=== PATIENT | male | born 1950 | race Caucasian/White ===

== ENCOUNTER 2017-01-03 13:30 | Inpatient (IN) | payer MEDICARE ==
[2017-01-03] MEDS ORDERED: IPRATROPIUM-ALBUTEROL 3 ML NEB INHALATION STA (14:18)
[2017-01-03] MEDS ORDERED: methylPREDNISolone SOD SUCCI 125 MG/2 ML VIAL IV STA (14:18)
[2017-01-03] MEDS ORDERED: NITROGLYCERIN OINT 1 INCH/GM PACKET TOPICAL STA (14:18)
[2017-01-03] MEDS ORDERED: FUROSEMIDE 10 MG/ML 4 ML VIAL IV STA (14:18)
[2017-01-03] MEDS ORDERED: ASPIRIN 81 MG CHEW PO STA (14:21)
--- NOTE | 2017-01-03 14:24 | ED ---
SOB HPI - General Chief Complaint: Shortness of Breath Stated Complaint: JONO Time Seen by Provider: 01/03/17 14:07 Source: patient Mode of arrival: wheelchair Limitations: no limitations - History of Present Illness Initial Comments: This 66-year-old white male presents with a complaint of some shortness of breath. He states that it is essentially been present over the last 2 days. It is fairly severe. He has significant exertional dyspnea. He states that he is having a hard time doing any type of activity whatsoever. He does have a history of 4 L oxygen dependent COPD. He also has a history of congestive heart failure. He denies any history of DVT or PE. He currently is on Coumadin for atrial fibrillation. He has had occasional left sided chest pain/ pressure. He denies any leg pain or swelling. He has had a cough with minimal brownish production but denies any fevers. 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 No other complaints or modifying factors. - Related Data Home Medications Medication Instructions Recorded Confirmed Aspirin EC [Ecotrin] 325 mg PO DAILY 01/03/17 01/03/17 Carvedilol [Coreg] 3.125 mg PO BID 01/03/17 01/03/17 Celecoxib [CeleBREX] 200 mg PO DAILY 01/03/17 01/03/17 Ferrous Gluconate 27mg 27 mg PO DAILY 01/03/17 01/03/17 Fluticasone/Salmeterol [Advair 1 puff INHALATION RT-BID 01/03/17 01/03/17 250-50 Diskus] Furosemide [Lasix] 40 mg PO BID 01/03/17 01/03/17 Ipratropium-Albuterol Nebulize 3 ml INHALATION RT-Q4H 01/03/17 01/03/17 [Duoneb 0.5 mg-3 mg/3 ml Soln] Rosuvastatin [Crestor] 10 mg PO HS 01/03/17 01/03/17 Tamsulosin HCl [Flomax] 0.4 mg PO DAILY 01/03/17 01/03/17 Tiotropium 18 Mcg/Puff [Spiriva] 1 cap INHALATION RT-DAILY 01/03/17 01/03/17 Warfarin Sodium [Coumadin] 4 mg PO HS 01/03/17 01/03/17 metFORMIN HCL [Metformin HCl] 1,000 mg PO BID 01/03/17 01/03/17 Allergies Allergy/AdvReac Type Severity Reaction Status Date / Time No Known Allergies Allergy Verified 01/03/17 13:53 Review of Systems ROS Statement: Those systems with pertinent positive or pertinent negative responses have been documented in the HPI. ROS Other: All systems not noted in ROS Statement are negative. Past Medical History Past Medical History: Heart Failure, COPD, Diabetes Mellitus, Hyperlipidemia, Hypertension History of Any Multi-Drug Resistant Organisms: None Reported Past Surgical History: Orthopedic Surgery Additional Past Surgical History / Comment(s): knee Past Psychological History: No Psychological Hx Reported Smoking Status: Current every day smoker Past Alcohol Use History: Rare Past Drug Use History: None Reported General Exam - General Exam Comments Initial Comments: GENERAL: The patient is well nourished and well hydrated. VITAL SIGNS: Heart rate, blood pressure, respiratory rate reviewed as recorded in nurse's notes. EYES: Pupils are round and reactive. Extraocular movements are intact. No conjunctival / lid redness or swelling. ENT: No external evidence of injury, swelling, or ecchymosis. Airway is patent. Throat is clear. NECK: Nontender. No swelling or evidence of injury. No subcutaneous emphysema. Trachea is midline. No thyroid mass. HEART: Regular rate and rhythm. Good peripheral pulses. LUNGS/CHEST: Decreased breath sounds noted bilaterally. No ecchymosis, subcutaneous emphysema, or tenderness. ABDOMEN: Abdomen soft without tenderness. No palpable masses or organomegaly. No peritoneal signs. No abdominal wall swelling or ecchymosis. EXTREMITIES: No extremity tenderness. Normal muscle tone and function. No thoracolumbar tenderness. No extremity edema noted. NEUROLOGIC: Sensation is grossly intact. Cranial nerve exam reveals face is symmetrical, tongue is midline, speech is clear. SKIN: No abrasions or ecchymosis is noted. No induration or masses noted. PSYCHIATRIC: Alert and oriented. Appropriate behavior and judgment. Limitations: no limitations Course Vital Signs 01/03/17 01/03/17 01/03/17 13:37 14:06 14:28 Temperature 97.4 F L Pulse Rate 83 91 Respiratory 18 22 Rate Blood Pressure 117/63 O2 Sat by Pulse 88 L Oximetry 01/03/17 01/03/17 01/03/17 14:31 14:38 14:41 Temperature Pulse Rate 96 80 Respiratory 18 Rate Blood Pressure 111/74 123/79 O2 Sat by Pulse 97 Oximetry 01/03/17 01/03/17 15:21 16:24 Temperature 97.4 F L Pulse Rate 79 94 Respiratory 18 18 Rate Blood Pressure 117/74 160/83 O2 Sat by Pulse 96 94 L Oximetry Medical Decision Making - Medical Decision Making The patient was seen and examined. All diagnostics were reviewed. The breathing treatment is ordered as well as some Solu-Medrol intravenously, aspirin, Nitropaste, and Lasix. The EKG was completed and does show atrial fibrillation at a rate of 98. An occasional PVC is noted. There is some nonspecific ST-T wave changes noted mostly in the lateral leads. The patient's QRS duration is 1:30 minus QTC intervals 474. He does have a history of atrial fibrillation as well. The chest x-ray shows signs of congestive heart failure. His troponin and BNP are both elevated. The patient has some mild anemia, hypochloremia, hyperglycemia, and renal insufficiency. He has severe exertional dyspnea. It is felt as though his symptoms complex is consistent with congestive heart failure and that he would benefit from admission to the hospital. It is felt as though his congestive heart failure is fairly advanced. Case is discussed with Dr. Clarke and he is agreeable with admission with cardiology to consult. - Lab Data Result diagrams: 01/03/17 14:00 01/03/17 14:00 Lab Results 01/03/17 01/03/17 01/03/17 Range/Units 14:00 14:00 14:00 WBC 5.4 (3.8-10.6) k/uL RBC 3.29 L (4.30-5.90) m/uL Hgb 10.8 L (13.0-17.5) gm/dL Hct 32.1 L (39.0-53.0) % MCV 97.4 (80.0-100.0) fL MCH 32.8 (25.0-35.0) pg MCHC 33.7 (31.0-37.0) g/dL RDW 15.0 (11.5-15.5) % Plt Count 165 (150-450) k/uL Neutrophils % 79 % Lymphocytes % 10 % Monocytes % 7 % Eosinophils % 1 % Basophils % 0 % Neutrophils # 4.2 (1.3-7.7) k/uL Lymphocytes # 0.5 L (1.0-4.8) k/uL Monocytes # 0.4 (0-1.0) k/uL Eosinophils # 0.1 (0-0.7) k/uL Basophils # 0.0 (0-0.2) k/uL PT (9.0-12.0) sec INR (<1.1) APTT (22.0-30.0) sec Sodium 140 (137-145) mmol/L Potassium 4.2 (3.5-5.1) mmol/L Chloride 92 L (98-107) mmol/L Carbon Dioxide 34 H (22-30) mmol/L Anion Gap 14 mmol/L BUN 54 H (9-20) mg/dL Creatinine 1.60 H (0.66-1.25) mg/dL Est GFR (MDRD) Af Amer 53 (>60 ml/min/1.73 sqM) Est GFR (MDRD) Non-Af 44 (>60 ml/min/1.73 sqM) Glucose 148 H (74-99) mg/dL Calcium 9.5 (8.4-10.2) mg/dL Magnesium 1.9 (1.6-2.3) mg/dL Total Bilirubin 1.2 (0.2-1.3) mg/dL AST 27 (17-59) U/L ALT 30 (21-72) U/L Alkaline Phosphatase 59 (38-126) U/L Total Creatine Kinase 72 (55-170) U/L CK-MB (CK-2) 3.1 H* (0.0-2.4) ng/mL CK-MB (CK-2) Rel Index 4.3 Troponin I 0.103 H* (0.000-0.034) ng/mL NT-Pro-B Natriuret Pep pg/mL Total Protein 6.9 (6.3-8.2) g/dL Albumin 4.4 (3.5-5.0) g/dL 01/03/17 01/03/17 Range/Units 14:00 14:00 WBC (3.8-10.6) k/uL RBC (4.30-5.90) m/uL Hgb (13.0-17.5) gm/dL Hct (39.0-53.0) % MCV (80.0-100.0) fL MCH (25.0-35.0) pg MCHC (31.0-37.0) g/dL RDW (11.5-15.5) % Plt Count (150-450) k/uL Neutrophils % % Lymphocytes % % Monocytes % % Eosinophils % % Basophils % % Neutrophils # (1.3-7.7) k/uL Lymphocytes # (1.0-4.8) k/uL Monocytes # (0-1.0) k/uL Eosinophils # (0-0.7) k/uL Basophils # (0-0.2) k/uL PT 22.0 H (9.0-12.0) sec INR 2.3 (<1.1) APTT 29.6 (22.0-30.0) sec Sodium (137-145) mmol/L Potassium (3.5-5.1) mmol/L Chloride (98-107) mmol/L Carbon Dioxide (22-30) mmol/L Anion Gap mmol/L BUN (9-20) mg/dL Creatinine (0.66-1.25) mg/dL Est GFR (MDRD) Af Amer (>60 ml/min/1.73 sqM) Est GFR (MDRD) Non-Af (>60 ml/min/1.73 sqM) Glucose (74-99) mg/dL Calcium (8.4-10.2) mg/dL Magnesium (1.6-2.3) mg/dL Total Bilirubin (0.2-1.3) mg/dL AST (17-59) U/L ALT (21-72) U/L Alkaline Phosphatase (38-126) U/L Total Creatine Kinase (55-170) U/L CK-MB (CK-2) (0.0-2.4) ng/mL CK-MB (CK-2) Rel Index Troponin I (0.000-0.034) ng/mL NT-Pro-B Natriuret Pep 8330 pg/mL Total Protein (6.3-8.2) g/dL Albumin (3.5-5.0) g/dL Disposition Clinical Impression: Congestive heart failure, COPD (chronic obstructive pulmonary disease), Hypoxia , Elevated troponin, Hypertension, Anemia, Renal insufficiency, Hypochloremia, Hyperglycemia Disposition: ADMITTED IP TO THIS [facility] Condition: Fair Referrals: Nonstaff,Physician [REFERRING] - 1-2 days Time of Disposition: 17:09 Decision Date: 01/03/17 Decision Time: 17:10
[2017-01-03 14:32] LABS: Basophils % (A) 0 %; CH 31.6; CHCM 32.7; Eosinophils # (A) 0.1 k/uL (0-0.7); Eosinophils % (A) 1 %; HCT 32.1 % (39.0-53.0); HDW 2.73; HGB 10.8 gm/dL (13.0-17.5); Luc # (Auto) 0.13; Luc % (Auto) 3; Lymphocytes # (A) 0.5 k/uL (1.0-4.8); Lymphocytes % (A) 10 %; MCH 32.8 pg (25.0-35.0); MCHC 33.7 g/dL (31.0-37.0); MCV 97.4 fL (80.0-100.0); Mean Platelet Volume 7.2; Monocytes # (A) 0.4 k/uL (0-1.0); Monocytes % (A) 7 %; Neutrophils # (A) 4.2 k/uL (1.3-7.7); Neutrophils % (A) 79 %; RBC 3.29 m/uL (4.30-5.90); WBC 5.4 k/uL (3.8-10.6); WBC (Perox) 5.73
[2017-01-03 14:44] LABS: Calcium 9.5 mg/dL (8.4-10.2); Magnesium 1.9 mg/dL (1.6-2.3); Potassium 4.2 mmol/L (3.5-5.1); Total Bilirubin 1.2 mg/dL (0.2-1.3); Total Protein 6.9 g/dL (6.3-8.2)
[2017-01-03 14:49] LABS: INR 2.3 (<1.1); Partial Thromboplastin Time 29.6 sec (22.0-30.0)
--- NOTE | 2017-01-03 15:05 | XR ---
EXAMINATION TYPE: XR chest 2V DATE OF EXAM: 01/03/2017 COMPARISON: NONE HISTORY: Shortness of breath and difficulty in breathing. TECHNIQUE: Frontal and lateral views of the chest are obtained. FINDINGS: There is no focal air space opacity, pleural effusion, or pneumothorax seen. The cardiac silhouette size is mildly enlarged with mild central vascular congestion and atherosclerotic thoracic aorta. The osseous structures are intact. There is possible calcific foci left axillary region par tially imaged. IMPRESSION: Correlate for CHF exacerbation as there is cardiomegaly with suggestion of mild central vascular congestion.
[2017-01-03 15:09] LABS: Creatine Kinase MB 3.1 ng/mL (0.0-2.4); Troponin I 0.103 ng/mL (0.000-0.034)
[2017-01-03] MEDS: CARVEDILOL 3.125 MG TAB PO SCH (18:52)
[2017-01-03] MEDS ORDERED: IPRATROPIUM-ALBUTEROL 3 ML NEB INHALATION SCH (20:00)
[2017-01-03] MEDS: SYMBICORT 80-4.5 MCG INHALER INHALATION SCH (20:26)
[2017-01-03] MEDS: IPRATROPIUM-ALBUTEROL 3 ML NEB INHALATION SCH (20:40)
[2017-01-03 20:58] LABS: Glucose,Whole Blood 221 mg/dL (75-99)
[2017-01-03] MEDS ORDERED: ATORVASTATIN 20 MG TAB PO SCH (21:00)
[2017-01-03] MEDS: metFORMIN 500 MG TAB PO SCH (21:29)
[2017-01-03] MEDS: WARFARIN 2 MG TAB PO SCH (21:30)
[2017-01-03] MEDS: NITROGLYCERIN OINT 1 INCH/GM PACKET TOPICAL SCH (22:44)
[2017-01-03 23:13] LABS: Creatine Kinase MB 2.7 ng/mL (0.0-2.4); Troponin I 0.101 ng/mL (0.000-0.034)
[2017-01-03] MEDS: FUROSEMIDE 10 MG/ML 4 ML VIAL IV SCH (23:58)
[2017-01-03] MEDS: IPRATROPIUM-ALBUTEROL 3 ML NEB INHALATION PRN (23:58)
[2017-01-04 03:28] LABS: Basophils % (A) 0 %; CH 31.9; CHCM 31.6; Eosinophils % (A) 0 %; HDW 2.54; HGB 9.9 gm/dL (13.0-17.5); Hypochromasia Slight; Luc # (Auto) 0.02; Luc % (Auto) 1; Lymphocytes # (A) 0.2 k/uL (1.0-4.8); Lymphocytes % (A) 6 %; MCH 31.4 pg (25.0-35.0); MCV 101.6 fL (80.0-100.0); Macrocytosis Slight; Mean Platelet Volume 8.7; Monocytes # (A) 0.1 k/uL (0-1.0); Monocytes % (A) 2 %; Neutrophils # (A) 2.8 k/uL (1.3-7.7); Neutrophils % (A) 91 %; RBC 3.15 m/uL (4.30-5.90); RDW 15.2 % (11.5-15.5); WBC 3.1 k/uL (3.8-10.6); WBC (Perox) 3.52
[2017-01-04 04:04] LABS: Calcium 9.1 mg/dL (8.4-10.2); Potassium 4.4 mmol/L (3.5-5.1); Total Bilirubin 0.9 mg/dL (0.2-1.3); Total Protein 6.6 g/dL (6.3-8.2)
[2017-01-04 04:13] LABS: Creatine Kinase MB 2.9 ng/mL (0.0-2.4); Troponin I 0.094 ng/mL (0.000-0.034)
[2017-01-04 05:49] LABS: Glucose,Whole Blood 171 mg/dL (75-99)
--- NOTE | 2017-01-04 06:44 | HP ---
DATE OF ADMISSION: CHIEF COMPLAINT: A 66-year-old white male with some shortness of breath worsening over the last 2 days, severe exertional dyspnea doing any kind of activity, has a history of 4-L O2 dependent COPD. Chest x-ray in the ER was recommended and read as congestive heart failure. He was started on IV Lasix. He normally takes Lasix 40 mg b.i.d. at home. Denies any history of DVT or PE. Coumadin for atrial fibrillation. Had chest pain, pressure. Denies pain or swelling. Has a cough with minimal brown sputum. 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 No other modifying factors. MEDICATIONS: 1. Lasix 40 mg b.i.d. 2. Coreg 3.125 b.i.d. 3. Ecotrin 325 mg daily. 4. Celebrex 200 daily. 5. Ferrous sulfate 325 mg daily. 6. Crestor 10 mg daily. 7. Flomax 0.4 mg daily. 8. Spiriva 1 puff daily. 9. Coumadin 4 mg daily. 10. Metformin 1000 b.i.d. 11. DuoNeb updrafts q.4 hours p.r.n. ALLERGIES: No known drug allergies. REVIEW OF SYSTEMS: Fourteen-point review of systems negative except for as mentioned in HPI. PAST MEDICAL HISTORY: Congestive heart failure, COPD, diabetes mellitus, hypertension, dyslipidemia, orthopedic surgery, current every day smoker. No alcohol. No illicit drugs PHYSICAL EXAM: VITAL SIGNS: Stable, afebrile. CARDIOVASCULAR: S1, S2. LUNGS: Show rales at the bases, scattered wheeze. HEMATOLOGIC: Negative Homans. PSYCHIATRIC: Fair mood and affect. NEUROLOGIC: Alert and oriented x3. OPHTHALMOLOGIC: Pupils equal, round and reactive to light and accommodation. PSYCH: Fair mood and affect. SKIN: No rash, excoriation, bruising. Temperature 97.4, pulse 83 to 91, respiratory rate 18 to 22, blood pressure 117/63, O2 88% on room air. Hemoglobin is 10.8. Some ST-T changes on EKG with positive troponins. Cardiology was consulted. ASSESSMENT: 1. Acute congestive heart failure. 2. Atrial fibrillation. 3. Positive troponin. 4. Non-ST elevation myocardial infarction. 5. Chronic renal insufficiency. 6. Chronic obstructive pulmonary disease exacerbation. 7. Acute on chronic anemia. 8. Diabetes mellitus. 9. Hypochloremia. 10. Hyperglycemia. PLAN: Admit the patient to inpatient, IV Lasix 40 q.8, updraft treatments, IV Solu-Medrol, Accu-Chek protocol, hemoglobin A1c, thyroid will be done. Home medicines will be done. Please see further orders.
[2017-01-04] MEDS: CARVEDILOL 3.125 MG TAB PO SCH ×2 (06:51→17:04)
[2017-01-04] MEDS: IPRATROPIUM-ALBUTEROL 3 ML NEB INHALATION SCH ×4 (08:18→19:47)
[2017-01-04] MEDS: SYMBICORT 80-4.5 MCG INHALER INHALATION SCH ×2 (08:18→19:47)
[2017-01-04] MEDS ORDERED: ASPIRIN 325 MG TAB PO SCH (09:00)
[2017-01-04] MEDS: FUROSEMIDE 10 MG/ML 4 ML VIAL IV SCH ×3 (09:22→22:30)
[2017-01-04] MEDS: TAMSULOSIN 0.4 MG CAP.ER.24H PO SCH (09:23)
[2017-01-04] MEDS: MELOXICAM 7.5 MG TAB PO SCH (09:23)
[2017-01-04] MEDS: metFORMIN 500 MG TAB PO SCH ×2 (09:23→22:25)
[2017-01-04] MEDS: FERROUS SULFATE 325 MG TAB PO SCH (09:23)
[2017-01-04] MEDS: NITROGLYCERIN OINT 1 INCH/GM PACKET TOPICAL SCH ×4 (10:10→22:30)
[2017-01-04 11:50] LABS: % Iron Saturation 9.1 % (20-50)
[2017-01-04] MEDS: TIOTROPIUM 18 MCG/PUFF INHALER INHALATION SCH (11:52)
[2017-01-04 11:56] LABS: Glucose,Whole Blood 171 mg/dL (75-99)
--- NOTE | 2017-01-04 13:00 | CONS ---
DATE OF CONSULTATION: Mr. Mcknight is a 66-year-old gentleman who is seen for cardiac evaluation. The patient's emergency records reviewed. Patient came to the emergency room because he has been having progressively increasing shortness of breath over last 4 to 5 days with a history suggestive of orthopnea as well as PND. Patient denies any significant cough with expectoration. 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 Patient has a history of hypertension, diabetes, congestive heart failure, COPD, and has been using oxygen. However, he has been otherwise functionally active and he used to play golf. Patient also has a history of atrial fibrillation and has been on Coumadin. Patient denies any definite prior history of myocardial infarction. He denies any history suggestive of angina. Patient has been evaluated with echocardiogram and a stress test in the past, but according to him, he never had a cardiac catheterization done in the past. Home medications included aspirin 325 mg daily, Coreg, Celebrex 200 mg daily, ferrous gluconate once a day, Lasix 40 mg b.i.d., Crestor once a day, Coumadin and metformin. Past medical history includes history of hypertension, diabetes, hyperlipidemia, heart failure, COPD, history of orthopedic surgery. SMOKING HISTORY: Patient is currently every day smoker. He smokes about 5 to 6 cigarettes per day. Physical examination at present reveals a 66-year-old gentleman who at present is not in any acute respiratory distress. Patient's blood pressure is 115/65 mmHg, oxygen saturation is 99%. Head/ENT examination is negative. Neck is supple. Jugular venous pressure is elevated. Both the carotid pulses are felt. There is no bruit. Chest is symmetrical. HEART: The PMI is not felt. There is evidence of cardiomegaly. Mild left parasternal hue noted. First and second heart sounds are normal. No significant murmurs are noted. Lungs reveal bilateral basal rales in the lower one third of the lung taveras. Abdomen is soft. Liver is palpable about 2 fingerbreadths below the right costal margin. EXTREMITIES: There is 1 to 2+ pedal edema. Peripheral pulses are not felt. EKG shows evidence of atrial fibrillation with a controlled rate. Chest x-ray shows congestive cardiac failure. Patient's initial proBNP level was 8300, repeat proBNP level is 15,000. Patient has minimal elevation in the troponin. Patient's creatinine is 1.6. FINAL IMPRESSION: 1. This patient has presented with acute decompensated heart failure on the background of chronic systolic heart failure. Patient has a history of hypertension and diabetes. 2. Chronic atrial fibrillation with a controlled rate. RECOMMENDATIONS: At present, I would recommend to continue the patient on IV Lasix. We will discontinue aspirin as the patient is getting Coumadin. We will start the patient on Entresto 24/26 mg twice a day as well as Aldactone 25 mg daily. We will follow the patient's BUN and creatinine. Patient's echocardiogram shows severely impaired left ventricular systolic function with ejection fraction of 20% and pulmonary hypertension. After the patient's condition improves, patient will need further work-up.
--- NOTE | 2017-01-04 13:08 | ECHOF ---
Referral Reason:Heart Failure MEASUREMENTS -------- HEIGHT: 175.3 cm WEIGHT: 97.1 kg BP: 130/60 IVSd: 1.2 cm (0.6 - 1.1) LVIDd: 5.6 cm (3.9 - 5.3) LVPWd: 0.8 cm (0.6 - 1.1) LVIDs: 5.1 cm RVIDd: 4.7 cm (< 3.3) LAESV Index (A-L): 34.40 ml/m Ao Diam: 3.3 cm (2.0 - 3.7) LA Diam: 4.3 cm (2.7 - 3.8) AV Cusp: 1.6 cm (1.5 - 2.6) EPSS: 0.7 cm MV E Charles: 1.30 m/s MV DecT: 142 ms MV A Charles: 0.20 m/s MV E/A Ratio: 6.39 RAP: 15.00 mmHg RVSP: 73.21 mmHg MV EF SLOPE: 64.08 mm/s (70 - 150) MV EXCURSION: 19.13 mm (> 18.000) FINDINGS -------- Sinus rhythm. This was a technically adequate study. Left ventricular wall thickness is normal. There is severe global hypokinesis of LV . Overall left ventricular systolic function is severely impaired with, an EF < 20%. The right ventricle is normal in size. LA is midly dilated 29-33ml/m2. There is mild aortic valve sclerosis. There is no evidence of aortic regurgitation. Mild mitral annular calcification present. Moderate mitral regurgitation is present. [id number] tricuspid regurgitation present. There is moderate to severe pulmonary hypertension. The right ventricular systolic pressure, as measured by Doppler, is 73.21mmHg. There is no pulmonic regurgitation present. The aortic root size is normal. There is no pericardial effusion. CONCLUSIONS -------- 1. Left ventricular wall thickness is normal. 2. The right ventricular systolic pressure, as measured by Doppler, is 73.21mmHg. 3. There is no pulmonic regurgitation present. 4. The aortic root size is normal. 5. There is no pericardial effusion. 6. There is severe global hypokinesis of LV . 7. Overall left ventricular systolic function is severely impaired with, an EF < 20%. 8. LA is midly dilated 29-33ml/m2. 9. There is mild aortic valve sclerosis. 10. Mild mitral annular calcification present. 11. Moderate mitral regurgitation is present. 12. [id number] tricuspid regurgitation present. 13. There is moderate to severe pulmonary hypertension. RADIOLOGY SPECIAL PROCEDURE TECH: Lorie Johns RDCS
[2017-01-04 13:58] LABS: Hemoglobin A1C 5.5 % (4.2-6.1)
[2017-01-04] MEDS: SPIRONOLACTONE 25 MG TAB PO SCH (14:01)
[2017-01-04] MEDS: SACUBITRIL/VALSARTAN 24 MG-26 MG TABLET PO SCH ×2 (14:01→22:25)
[2017-01-04 14:22] LABS: INR 2.2 (<1.1); Prothrombin Time 21.5 sec (9.0-12.0)
[2017-01-04 17:23] LABS: Glucose,Whole Blood 114 mg/dL (75-99)
[2017-01-04 20:48] LABS: Glucose,Whole Blood 130 mg/dL (75-99)
[2017-01-04] MEDS: WARFARIN 2 MG TAB PO SCH (22:25)
[2017-01-04] MEDS: ATORVASTATIN 40 MG TAB PO SCH (22:25)
[2017-01-04] MEDS: IPRATROPIUM-ALBUTEROL 3 ML NEB INHALATION PRN (23:32)
[2017-01-05 05:47] LABS: Glucose,Whole Blood 115 mg/dL (75-99)
[2017-01-05 06:20] LABS: CH 31.8; HCT 31.7 % (39.0-53.0); HGB 9.8 gm/dL (13.0-17.5); Hypochromasia Slight; MCV 103.1 fL (80.0-100.0); Macrocytosis Moderate; Mean Platelet Volume 7.7; RBC 3.07 m/uL (4.30-5.90); RDW 15.3 % (11.5-15.5)
[2017-01-05 06:21] LABS: Prothrombin Time 19.4 sec (9.0-12.0)
[2017-01-05 06:51] LABS: Calcium 8.9 mg/dL (8.4-10.2); Potassium 4.5 mmol/L (3.5-5.1); Total Bilirubin 0.7 mg/dL (0.2-1.3); Total Protein 6.1 g/dL (6.3-8.2)
[2017-01-05] MEDS ORDERED: CARVEDILOL 3.125 MG TAB ONE (07:30)
[2017-01-05] MEDS: IPRATROPIUM-ALBUTEROL 3 ML NEB INHALATION SCH ×4 (08:00→19:47)
[2017-01-05] MEDS: SYMBICORT 80-4.5 MCG INHALER INHALATION SCH ×2 (08:00→19:47)
[2017-01-05] MEDS: TIOTROPIUM 18 MCG/PUFF INHALER INHALATION SCH (08:00)
[2017-01-05] MEDS: CARVEDILOL 3.125 MG TAB PO SCH ×2 (09:09→17:29)
[2017-01-05] MEDS: FUROSEMIDE 10 MG/ML 4 ML VIAL IV SCH (09:11)
[2017-01-05] MEDS: FERROUS SULFATE 325 MG TAB PO SCH (09:12)
[2017-01-05] MEDS: MELOXICAM 7.5 MG TAB PO SCH ×2 (09:12→14:38)
[2017-01-05] MEDS: metFORMIN 500 MG TAB PO SCH (09:13)
[2017-01-05] MEDS: SACUBITRIL/VALSARTAN 24 MG-26 MG TABLET PO SCH ×2 (09:13→20:57)
[2017-01-05] MEDS: SPIRONOLACTONE 25 MG TAB PO SCH (09:13)
--- NOTE | 2017-01-05 10:13 | PN ---
SUBJECTIVE: A 66-year-old white male admitted with progressive shortness of breath for the past 4 to 5 days with orthopnea, PND, cough, expectoration, hypertension, diabetes, congestive heart failure, COPD found to have ejection fraction around 20%, atrial fibrillation. He is breathing better with IV Lasix 40 q.8 and Entresto has been started by Cardiology today. His acute on chronic decompensated systolic heart failure and possible diastolic heart failure, hypertension, diabetes mellitus, chronic atrial fibrillation. Continue with Coumadin and Entresto 24/26 mg b.i.d., Aldactone 25 mg daily. Continue with PT, OT. Possible discharge home in next 48 hours.
[2017-01-05 13:40] LABS: Glucose,Whole Blood 152 mg/dL (75-99)
[2017-01-05] MEDS: NITROGLYCERIN OINT 1 INCH/GM PACKET TOPICAL SCH ×4 (13:50→21:02)
--- NOTE | 2017-01-05 14:15 | PN ---
This patient is admitted with congestive cardiac failure. His condition is about the same. There is no significant improvement in the patient's shortness of breath. Patient's weight is actually gone up by one pound. Urine output is borderline. First and second heart sounds are normal. Lung examination reveals bilateral basal rales. Patient's creatinine is 2.0, BUN is 72. FINAL IMPRESSION: Acute on chronic systolic heart failure. Patient has cardiorenal syndrome, with progressively increased creatinine. We will start the patient on dobutamine drip as well as IV Lasix drip. D/C the IV Lasix.
[2017-01-05] MEDS: DOBUTamine DRIP 500 MG in DEXTROSE/WATER 1 250ML.BAG IV SCH (14:16)
[2017-01-05] MEDS: FUROSEMIDE 250 MG in SODIUM CHLORIDE 0.9% 225 ML IVP SCH (14:16)
[2017-01-05] MEDS: TAMSULOSIN 0.4 MG CAP.ER.24H PO SCH (14:38)
[2017-01-05 17:07] LABS: Glucose,Whole Blood 87 mg/dL (75-99)
[2017-01-05 20:53] LABS: Glucose,Whole Blood 154 mg/dL (75-99)
[2017-01-05] MEDS: WARFARIN 2 MG TAB PO SCH (20:57)
[2017-01-05] MEDS: ATORVASTATIN 40 MG TAB PO SCH (20:57)
[2017-01-05] MEDS: IPRATROPIUM-ALBUTEROL 3 ML NEB INHALATION PRN (23:49)
[2017-01-06 06:06] LABS: Calcium 8.3 mg/dL (8.4-10.2); Potassium 4.3 mmol/L (3.5-5.1)
[2017-01-06 06:25] LABS: INR 1.9 (<1.1); Prothrombin Time 17.9 sec (9.0-12.0)
[2017-01-06 06:38] LABS: Glucose,Whole Blood 126 mg/dL (75-99)
[2017-01-06] MEDS: CARVEDILOL 3.125 MG TAB PO SCH ×2 (06:46→17:00)
--- NOTE | 2017-01-06 08:08 | PN ---
SUBJECTIVE: 66-year-old white male with severe systolic congestive heart failure. He has gained one pound. He feels like his breathing is little bit worse compared to yesterday. CARDIOVASCULAR: S1 and S2. LUNGS: No rales at the bases. Creatinine is 2.0. BUN 72. ASSESSMENT/PLAN: 1. Acute and chronic systolic heart failure. 2. Cardiorenal syndrome. 3. Progressive increased creatinine. 4. He will need dobutamine drip and IV Lasix drip. 5. Prognosis extremely guarded. 6. Entresto has been ordered. Labs show hemoglobin 9.8, BUN 22, creatinine 2.0. Sugars in the mid 100s. Total protein is low at 6.1. BNP is 12.9. Prognosis extremely poor. Continue on current medications including albuterol ipratropium updrafts q.i.d. Budesonide b.i.d. , Coreg, iron, furosemide, Lasix drip and continue ( ). Metformin was to be discontinued due to his creatinine going up as well as meloxicam. Continue on his valsartan, spironolactone, and Flomax.
[2017-01-06] MEDS: IPRATROPIUM-ALBUTEROL 3 ML NEB INHALATION SCH ×4 (08:17→20:09)
[2017-01-06] MEDS: SYMBICORT 80-4.5 MCG INHALER INHALATION SCH ×2 (08:17→20:07)
[2017-01-06] MEDS: TIOTROPIUM 18 MCG/PUFF INHALER INHALATION SCH (08:18)
[2017-01-06] MEDS: DOBUTamine DRIP 500 MG in DEXTROSE/WATER 1 250ML.BAG IV SCH (08:33)
[2017-01-06] MEDS: FERROUS SULFATE 325 MG TAB PO SCH (08:34)
[2017-01-06] MEDS: TAMSULOSIN 0.4 MG CAP.ER.24H PO SCH (08:34)
[2017-01-06] MEDS: NITROGLYCERIN OINT 1 INCH/GM PACKET TOPICAL SCH ×4 (08:35→21:48)
[2017-01-06] MEDS: SPIRONOLACTONE 25 MG TAB PO SCH (08:35)
[2017-01-06] MEDS: SACUBITRIL/VALSARTAN 24 MG-26 MG TABLET PO SCH ×2 (08:35→21:12)
--- NOTE | 2017-01-06 10:16 | CDI ---
In responding to this query, please exercise your independent professional judgment. The [facility] Coding Staff and Clinical Documentation Specialists appreciate your assistance in clarifying documentation, maintaining compliance with coding guidelines, accurately documenting patients condition and capturing severity of illness. The fact that a question is asked does not imply that any particular answer is desired or expected. Communication forms are a method of clarifying documentation and are not made part of the Legal Health Record. Thank you in advance for your clarification. Last Revision, May 2015 Zenon Lam [address] [place] [address] Documentation Clarification Form Date: 01/06/2017 10:08:00 AM From: Dawn Acharya CCS, CCDS Admit Date: 01/03/2017 5:11:00 PM Patient Name: Stephen Mcknight Visit Number: [id number] Discharge Date: Dr. Leon Clarke: History/Risk Factors: O2 dep COPD, CHF, DM, Hypertension. LABS: BUN: 54 - 59 - 72 - 68 Creatinine: 1.60 - 1.60 - 2.00 - 1.80 GFR: 44 - 44 - 34 - 38 Clinical Indicators: 66 yo male, admitted with worsening SOB. Diagnosed with Cardiorenal syndrome: Hypertensive heart & chronic renal failure with acute exacerbation of systolic CHF & acute renal failure. Treatment: O2 4Lnc, IV Lasix, Updraft treatments, Nitropaste, IV Steroids In order to capture the severity of condition, please clarify if the condition signifies: CKD Stage 1 (GFR > 90) CKD Stage 2 (GFR 60-89) CKD Stage 3 (GFR 30-59) CKD Stage 4 (GFR 15-29) CKD Stage 5 (GFR <15) ESRD Unable to determine Other condition, please specify Please document in your progress notes and discharge summary in order to capture severity of illness and risk of mortality. Include clinical findings that support your diagnosis. FYI: Press F11 to launch patient chart. Place X here if this finding has no clinical significance, is not applicable or if you are not able to provide any additional documentation. Thank You. JUAN
[2017-01-06 12:01] LABS: Glucose,Whole Blood 113 mg/dL (75-99)
--- NOTE | 2017-01-06 13:08 | P.NPCON ---
History of Present Illness - Reason for Consult acute renal failure - History of Present Illness Reason for consultation: Acute kidney injury History of present illness: Patient is a 66-year-old male seen in renal consultation for acute kidney injury. Unclear as to what his baseline renal function is. His creatinine was 1.6 on admission and peaked at 2.0. It is down to 1.8 today. Patient presented with dyspnea and worsening lower extremity edema going on for the past few days prior to admission. Patient states he was also drinking more fluids as he was told that he was dehydrated. He is noted to have systolic CHF with ejection fraction of less than 20% with moderate mitral regurgitation and pulmonary hypertension. He denies any vomiting or diarrhea. Denies chest pain. He does admit to taking Celebrex every day for his arthritis. He is currently maintained on a dobutamine drip as well as Lasix drip running at 10 mL an hour. His urine output in the last 24 hours was 2.8 L. His weight is actually trending up but I'm not sure accurate this is as a patient states his edema and dyspnea are both improved. He denies any family history of renal disease. Denies eating excessive salt. Vital signs are stable. General: The patient appeared well nourished and normally developed. HEENT: Head exam is unremarkable. Neck is without jugular venous distension. LUNGS: Lungs are clear to auscultation and percussion. Breath sounds decreased. HEART: Rate and Rhythm are regular. First and second heart sounds normal. No murmurs, rubs or gallops. ABDOMEN: Abdominal exam reveals normal bowel sounds. Non-tender and non- distended. No evidence of peritonitis. EXTREMITITES: Trace edema. Past Medical History Past Medical History: Atrial Fibrillation, Heart Failure, COPD, Diabetes Mellitus, Hyperlipidemia, Hypertension, Prostate Disorder History of Any Multi-Drug Resistant Organisms: None Reported Past Surgical History: Orthopedic Surgery Additional Past Surgical History / Comment(s): knee Additional Past Anesthesia/Blood Transfusion Reaction / Comment(s): never recieved Past Psychological History: No Psychological Hx Reported Smoking Status: Current every day smoker Past Alcohol Use History: Rare Additional Past Alcohol Use History / Comment(s): smokes 5 cigaretts per day Past Drug Use History: None Reported Medications and Allergies Home Medications Medication Instructions Recorded Confirmed Type Aspirin EC [Ecotrin] 325 mg PO DAILY 01/03/17 01/03/17 History Carvedilol [Coreg] 3.125 mg PO BID 01/03/17 01/03/17 History Celecoxib [CeleBREX] 200 mg PO DAILY 01/03/17 01/03/17 History Ferrous Gluconate 27mg 27 mg PO DAILY 01/03/17 01/03/17 History Fluticasone/Salmeterol [Advair 1 puff INHALATION RT-BID 01/03/17 01/03/17 History 250-50 Diskus] Furosemide [Lasix] 40 mg PO BID 01/03/17 01/03/17 History Ipratropium-Albuterol Nebulize 3 ml INHALATION RT-Q4H 01/03/17 01/03/17 History [Duoneb 0.5 mg-3 mg/3 ml Soln] Rosuvastatin [Crestor] 10 mg PO HS 01/03/17 01/03/17 History Tamsulosin HCl [Flomax] 0.4 mg PO DAILY 01/03/17 01/03/17 History Tiotropium 18 Mcg/Puff [Spiriva] 1 cap INHALATION RT-DAILY 01/03/17 01/03/17 History Warfarin Sodium [Coumadin] 4 mg PO HS 01/03/17 01/03/17 History metFORMIN HCL [Metformin HCl] 1,000 mg PO BID 01/03/17 01/03/17 History Allergies Allergy/AdvReac Type Severity Reaction Status Date / Time No Known Allergies Allergy Verified 01/03/17 13:53 Physical Exam Vitals: Vital Signs Temp Pulse Pulse Resp BP BP Pulse Ox 01/06/17 11:56 97.3 F L 88 20 97/60 98 01/06/17 11:34 92 01/06/17 11:24 92 01/06/17 08:33 94 01/06/17 08:19 92 94 L 01/06/17 08:00 97.8 F 84 96/50 98 01/06/17 04:00 98.0 F 94 18 106/53 96 01/06/17 00:00 97.3 F L 81 83 18 102/61 97 01/05/17 23:50 77 01/05/17 20:05 68 01/05/17 20:00 97.2 F L 81 18 92/54 98 01/05/17 19:49 68 01/05/17 16:30 82 01/05/17 16:17 82 100 01/05/17 16:00 98.0 F 73 18 98/58 100 Intake and Output 01/05/17 01/06/17 01/06/17 22:59 06:59 14:59 Intake Total 600 250 Output Total 200 1200 1050 Balance 400 -1200 -800 Intake: Intake, IV Titration 250 Amount DOBUTamine DRIP 500 mg In 250 Dextrose/Water 1 250ml. bag @ 5 MCG/KG/MIN 14.59 mls/hr IV .Q17H9M [facility] Rx# :[id number] Oral 600 Output: Urine 200 1200 1050 Other: Voiding Method Toilet Toilet Urinal Urinal # Voids 0 Weight 99.7 kg Results - Lab Results Most recent lab results Calcium 8.3 mg/dL (8.4-10.2) L 01/06/17 05:41 Magnesium 2.0 mg/dL (1.6-2.3) 01/05/17 05:50 01/05/17 05:50 01/06/17 05:41 Assessment and Plan Plan: Assessment: #1. Nonoliguric acute kidney injury secondary to cardiorenal syndrome. Creatinine peaked at 2 this admission and is down to 1.8 today. #2. Volume overload. Improving. #3. Systolic CHF with ejection fraction of less than 20% with moderate mitral regurgitation and pulmonary hypertension. #4. Rule out chronic kidney disease. Unclear as to what his baseline renal function is. Plan: Maintain dobutamine drip per cardiology recommendations. I will increase the Lasix drip to 15 mL an hour. Add metolazone 5 mg once daily. Strict I's and O's and daily weights. Avoid nephrotoxic agents and hypotensive episodes. Repeat electrolytes in the morning. Thank you for the consultation. I will continue to follow the patient with you during his hospital stay.
[2017-01-06] MEDS: METOLAZONE 5 MG TAB PO SCH (13:54)
[2017-01-06] MEDS: FUROSEMIDE 250 MG in SODIUM CHLORIDE 0.9% 225 ML IVP SCH (13:54)
--- NOTE | 2017-01-06 15:00 | P.PN ---
Subjective 66-year-old being seen and evaluated. Sitting up on the edge of the bed. Being followed by nephrology and cardiology. Patient has an IV Lasix and dobutamine drip infusing per recommendations of cardiology and nephrology service. Patients being treated for an acute exacerbation of decompensated systolic heart failure with an EF of less than 20%. Patient states breathing feels improved. Objective - Vital Signs Vital signs: Vital Signs Temp 97.3 F L 01/06/17 11:56 Pulse 88 01/06/17 11:56 Resp 20 01/06/17 11:56 BP 97/60 01/06/17 11:56 Pulse Ox 98 01/06/17 11:56 Intake & Output 01/05/17 01/06/17 01/06/17 18:59 06:59 18:59 Intake Total 780 1161.533 Output Total 1600 1200 1700 Balance -820 -1200 -538.467 Weight 99.7 kg Intake: IV 315.2 DOBUTamine DRIP 500 mg In 175.2 Dextrose/Water 1 250ml. bag @ 5 MCG/KG/MIN 14.59 mls/hr IV .Q17H9M [facility] Rx# :[id number] Furosemide 250 mg In 140 Sodium Chloride 0.9% 225 ml @ 15 MG/HR 15 mls/hr IVP .[id number] [facility] Rx#: [id number] Intake, IV Titration 486.333 Amount DOBUTamine DRIP 500 mg In 250 Dextrose/Water 1 250ml. bag @ 5 MCG/KG/MIN 14.59 mls/hr IV .Q17H9M [facility] Rx# :[id number] Furosemide 250 mg In 236.333 Sodium Chloride 0.9% 225 ml @ 15 MG/HR 15 mls/hr IVP .[id number] [facility] Rx#: [id number] Oral 780 360 Output: Urine 1600 1200 1700 Other: Voiding Method Toilet Urinal # Voids 0 # Bowel Movements 0 - Exam Physical exam 66-year-old male sitting up on the edge of the bed pleasant cooperative oriented 3 Lungs coarse rhonchi throughout diminished at the bases Heart S1-S2 audible irregular monitor A. fib Abdomen soft reports no nausea vomiting reports no decrease in appetite Extremities bilateral trace pedal edema - Labs CBC & Chem 7: 01/05/17 05:50 01/06/17 05:41 Labs: Abnormal Lab Results - Last 24 Hours (Table) 01/05/17 01/06/17 01/06/17 Range/Units 20:52 05:41 05:43 PT 17.9 H (9.0-12.0) sec Carbon Dioxide 36 H (22-30) mmol/L BUN 68 H (9-20) mg/dL Creatinine 1.80 H (0.66-1.25) mg/dL Glucose 112 H (74-99) mg/dL POC Glucose (mg/dL) 154 H (75-99) mg/dL Calcium 8.3 L (8.4-10.2) mg/dL 01/06/17 01/06/17 Range/Units 06:04 11:56 PT (9.0-12.0) sec Carbon Dioxide (22-30) mmol/L BUN (9-20) mg/dL Creatinine (0.66-1.25) mg/dL Glucose (74-99) mg/dL POC Glucose (mg/dL) 126 H 113 H (75-99) mg/dL Calcium (8.4-10.2) mg/dL Microbiology - Last 24 Hours (Table) 01/03/17 14:00 Blood Culture - Preliminary Blood No Growth after 48 hours Assessment and Plan Plan: Impression Present on admission shortness of breath exertional dyspnea due to an acute exacerbation of decompensated systolic heart failure EF less than 20 Chronic hypoxic respiratory failure O2 dependent 4 L [id number] at home Current every day smoker active Hypertension Debility Hyperlipidemia Plan Continue recommendations by cardiology service Monitor intake and output and daily weights Reinforce smoking cessation information to be provided Resume home meds as appropriate Monitor blood pressure and heart rate address as indicated Continue recommendations by cardiology service currently on IV dobutamine Continue recommendations by nephrology service on IV Lasix drip Monitor electrolytes Further exudations pending will follow Continue entresto as ordered per cardiology The above impression and plan of care have been discussed and directed by signing physician. Kelin Catalan nurse practitioner acting as scribe for signing physician.
[2017-01-06 15:29] LABS: Appearance,Urine Clear (Clear); Bilirubin,Urine Negative (Negative); Glucose,Urine (UA) Negative (Negative); Ketones,Urine Negative (Negative); Leukocyte Esterase,Urine Negative (Negative); Nitrite,Urine Negative (Negative); PH, Urine 6.5 (5.0-8.0); Protein,Urine Negative (Negative); Specific Gravity,Urine 1.004 (1.001-1.035); UA Billing (MACRO vs. MICRO) CHEM; Urobilinogen,Urine <2.0 mg/dL (<2.0)
--- NOTE | 2017-01-06 16:21 | P.PN ---
Subjective Principal diagnosis: Congestive heart failure This is a pleasant 66-year-old patient seen in consultation by Dr VC Mcnair yesterday. Currently being treated for congestive heart failure. He was initiated yesterday on IV Lasix and dobutamine drips. Patient is diuresing very well through the night last night, creatinine is 1.8 today. He was seen and examined sitting up in the chair. Overall he states she's feeling much better today. Blood pressure 102/50 with a heart rate in the 60s. Objective - Vital Signs Vital signs: Vital Signs Temp 97.6 F 01/06/17 15:37 Pulse 64 01/06/17 15:38 Resp 20 01/06/17 15:37 BP 102/53 01/06/17 15:37 Pulse Ox 100 01/06/17 15:37 Intake & Output 01/05/17 01/06/17 01/06/17 18:59 06:59 18:59 Intake Total 780 1161.533 Output Total 1600 1200 1700 Balance -820 -1200 -538.467 Weight 99.7 kg Intake: IV 315.2 DOBUTamine DRIP 500 mg In 175.2 Dextrose/Water 1 250ml. bag @ 5 MCG/KG/MIN 14.59 mls/hr IV .Q17H9M [facility] Rx# :[id number] Furosemide 250 mg In 140 Sodium Chloride 0.9% 225 ml @ 15 MG/HR 15 mls/hr IVP .[id number] [facility] Rx#: [id number] Intake, IV Titration 486.333 Amount DOBUTamine DRIP 500 mg In 250 Dextrose/Water 1 250ml. bag @ 5 MCG/KG/MIN 14.59 mls/hr IV .Q17H9M [facility] Rx# :[id number] Furosemide 250 mg In 236.333 Sodium Chloride 0.9% 225 ml @ 15 MG/HR 15 mls/hr IVP .[id number] [facility] Rx#: [id number] Oral 780 360 Output: Urine 1600 1200 1700 Other: Voiding Method Toilet Urinal # Voids 0 # Bowel Movements 0 - Exam PHYSICAL EXAMINATION: HEENT: Head is atraumatic, normocephalic. Pupils equal, round. Neck is supple. There is no elevated jugular venous pressure. HEART EXAMINATION: Heart S1, S2 normal. No murmur or gallop heard. CHEST EXAMINATION: Lungs reveal fine rales to bilateral bases. ABDOMEN: Soft, nontender. Hepatomegaly. Bowel sounds are heard. No organomegaly noted. EXTREMITIES: 2+ peripheral pulses with 1 plus evidence of peripheral edema and no calf tenderness noted. NEUROLOGIC patient is awake, alert and oriented -3.] . - Labs CBC & Chem 7: 01/05/17 05:50 01/06/17 05:41 Labs: Abnormal Lab Results - Last 24 Hours (Table) 01/05/17 01/06/17 01/06/17 Range/Units 20:52 05:41 05:43 PT 17.9 H (9.0-12.0) sec Carbon Dioxide 36 H (22-30) mmol/L BUN 68 H (9-20) mg/dL Creatinine 1.80 H (0.66-1.25) mg/dL Glucose 112 H (74-99) mg/dL POC Glucose (mg/dL) 154 H (75-99) mg/dL Calcium 8.3 L (8.4-10.2) mg/dL 01/06/17 01/06/17 Range/Units 06:04 11:56 PT (9.0-12.0) sec Carbon Dioxide (22-30) mmol/L BUN (9-20) mg/dL Creatinine (0.66-1.25) mg/dL Glucose (74-99) mg/dL POC Glucose (mg/dL) 126 H 113 H (75-99) mg/dL Calcium (8.4-10.2) mg/dL Microbiology - Last 24 Hours (Table) 01/03/17 14:00 Blood Culture - Preliminary Blood No Growth after 48 hours Assessment and Plan (1) Systolic CHF, acute on chronic Status: Acute (2) HTN (hypertension) Status: Acute (3) Diabetes Status: Acute (4) Hyperlipemia Status: Acute (5) Chronic a-fib Status: Acute (6) Renal insufficiency Status: Acute Plan: From cardiology's perspective, we'll recommend to continue current dose of IV dobutamine along with the IV Lasix drip. Monitor intake and output along with daily weights closely. DNP note has been reviewed, I agree with a documented findings and plan of care. Patient was seen and examined.
[2017-01-06 17:04] LABS: Glucose,Whole Blood 119 mg/dL (75-99)
[2017-01-06 21:03] LABS: Glucose,Whole Blood 127 mg/dL (75-99)
[2017-01-06] MEDS: WARFARIN 2 MG TAB PO SCH (21:12)
[2017-01-06] MEDS: FAMOTIDINE 20 MG TAB PO SCH (21:12)
[2017-01-06] MEDS: ATORVASTATIN 40 MG TAB PO SCH (21:12)
[2017-01-06] MEDS: IPRATROPIUM-ALBUTEROL 3 ML NEB INHALATION PRN (23:26)
[2017-01-07] MEDS: DOBUTamine DRIP 500 MG in DEXTROSE/WATER 1 250ML.BAG IV SCH ×2 (01:41→15:48)
[2017-01-07 06:13] LABS: INR 1.7 (<1.1); Prothrombin Time 16.7 sec (9.0-12.0)
[2017-01-07 06:16] LABS: Glucose,Whole Blood 110 mg/dL (75-99)
[2017-01-07 06:23] LABS: Calcium 8.9 mg/dL (8.4-10.2); Magnesium 2.1 mg/dL (1.6-2.3); Potassium 4.1 mmol/L (3.5-5.1)
[2017-01-07] MEDS: CARVEDILOL 3.125 MG TAB PO SCH ×2 (06:49→17:34)
[2017-01-07] MEDS: FUROSEMIDE 250 MG in SODIUM CHLORIDE 0.9% 225 ML IVP SCH ×2 (06:50→11:07)
[2017-01-07] MEDS: SACUBITRIL/VALSARTAN 24 MG-26 MG TABLET PO SCH ×2 (07:41→21:05)
[2017-01-07] MEDS: NITROGLYCERIN OINT 1 INCH/GM PACKET TOPICAL SCH ×3 (07:41→17:33)
[2017-01-07] MEDS: FERROUS SULFATE 325 MG TAB PO SCH (07:41)
[2017-01-07] MEDS: METOLAZONE 5 MG TAB PO SCH (07:42)
[2017-01-07] MEDS: TAMSULOSIN 0.4 MG CAP.ER.24H PO SCH (07:42)
[2017-01-07] MEDS: SPIRONOLACTONE 25 MG TAB PO SCH (07:42)
[2017-01-07] MEDS: SYMBICORT 80-4.5 MCG INHALER INHALATION SCH ×2 (08:22→19:44)
[2017-01-07] MEDS: IPRATROPIUM-ALBUTEROL 3 ML NEB INHALATION SCH ×4 (08:22→19:44)
[2017-01-07] MEDS: TIOTROPIUM 18 MCG/PUFF INHALER INHALATION SCH (08:23)
[2017-01-07] MEDS: traMADol 50 MG TAB PO SCH ×2 (08:42→21:05)
--- NOTE | 2017-01-07 09:00 | P.PN ---
Subjective Patient is seen in follow-up for acute kidney injury. Patient has systolic CHF with ejection fraction of less than 20% and moderate mitral regurgitation and pulmonary hypertension. Patient presented with dyspnea. He is currently maintained on dobutamine and Lasix drip. Patient states his dyspnea as well as his edema is much improved since admission. No vomiting or diarrhea. Oral intake is good. Urine output was over 6 L in the last 24 hours. Bicarb level is up to 39. Vital signs are stable. General: The patient appeared well nourished and normally developed. HEENT: Head exam is unremarkable. Neck is without jugular venous distension. LUNGS: Lungs are clear to auscultation and percussion. Breath sounds decreased. HEART: Rate and Rhythm are regular. First and second heart sounds normal. No murmurs, rubs or gallops. ABDOMEN: Abdominal exam reveals normal bowel sounds. Non-tender and non- distended. No evidence of peritonitis. EXTREMITITES: 1+ edema. Objective - Vital Signs Vital signs: Vital Signs Temp 97.6 F 01/07/17 03:34 Pulse 90 01/07/17 08:37 Resp 18 01/07/17 03:34 BP 96/60 01/07/17 03:34 Pulse Ox 97 01/07/17 08:24 Intake & Output 01/06/17 01/07/17 01/07/17 18:59 06:59 18:59 Intake Total 1494.533 659.308 Output Total 3150 3225 Balance -1655.467 -2565.692 Weight 94 kg Intake: IV 315.2 DOBUTamine DRIP 500 mg In 175.2 Dextrose/Water 1 250ml. bag @ 5 MCG/KG/MIN 14.59 mls/hr IV .Q17H9M [facility] Rx# :[id number] Furosemide 250 mg In 140 Sodium Chloride 0.9% 225 ml @ 15 MG/HR 15 mls/hr IVP .[id number] [facility] Rx#: [id number] Intake, IV Titration 486.333 419.308 Amount DOBUTamine DRIP 500 mg In 250 249.975 Dextrose/Water 1 250ml. bag @ 5 MCG/KG/MIN 14.59 mls/hr IV .Q17H9M [facility] Rx# :[id number] Furosemide 250 mg In 236.333 169.333 Sodium Chloride 0.9% 225 ml @ 15 MG/HR 15 mls/hr IVP .[id number] [facility] Rx#: [id number] Oral 693 240 Output: Urine 3150 3225 Other: Voiding Method Toilet Urinal # Voids 450 - Labs CBC & Chem 7: 01/05/17 05:50 01/07/17 05:39 Labs: Abnormal Lab Results - Last 24 Hours (Table) 01/06/17 01/06/17 01/06/17 Range/Units 11:56 16:33 20:59 PT (9.0-12.0) sec Chloride (98-107) mmol/L Carbon Dioxide (22-30) mmol/L BUN (9-20) mg/dL Creatinine (0.66-1.25) mg/dL Glucose (74-99) mg/dL POC Glucose (mg/dL) 113 H 119 H 127 H (75-99) mg/dL 01/07/17 01/07/17 01/07/17 Range/Units 05:39 05:39 05:50 PT 16.7 H (9.0-12.0) sec Chloride 91 L (98-107) mmol/L Carbon Dioxide 39 H (22-30) mmol/L BUN 61 H (9-20) mg/dL Creatinine 1.78 H (0.66-1.25) mg/dL Glucose 106 H (74-99) mg/dL POC Glucose (mg/dL) 110 H (75-99) mg/dL Microbiology - Last 24 Hours (Table) 01/03/17 14:00 Blood Culture - Preliminary Blood No Growth after 72 hours Assessment and Plan Plan: Assessment: #1. Nonoliguric acute kidney injury secondary to cardiorenal syndrome. Creatinine peaked at 2 this admission and stable at 1.78 today. #2. Volume overload. Improving. #3. Systolic CHF with ejection fraction of less than 20% with moderate mitral regurgitation and pulmonary hypertension. #4. Rule out chronic kidney disease. Unclear as to what his baseline renal function is. Urinalysis noted to be benign. #5. Metabolic alkalosis secondary to diuretic induced volume contraction. Plan: Maintain dobutamine drip per cardiology recommendations. I will decrease the Lasix drip to 10 mL an hour. Continue metolazone 5 mg once daily. Strict I's and O's and daily weights. Avoid nephrotoxic agents and hypotensive episodes. Repeat electrolytes in the morning.
--- NOTE | 2017-01-07 11:01 | P.PN ---
Subjective 66-year-old male being seen and evaluated. Currently sitting up on the edge of the bed states his breathing feels improved. There is also noted improvement in the edema lower extremity since admission. Patient states he has lost 12 pounds since the admission. Patient continues to be maintained on a dobutamine Lasix drip. Being followed by nephrology and cardiology service. Patient had an episode this morning 18 beat nonsustained V. tach reportedly asymptomatic Objective - Vital Signs Vital signs: Vital Signs Temp 98.2 F 01/07/17 08:00 Pulse 90 01/07/17 08:37 Resp 18 01/07/17 08:00 BP 114/66 01/07/17 08:00 Pulse Ox 97 01/07/17 08:24 Intake & Output 01/06/17 01/07/17 01/07/17 18:59 06:59 18:59 Intake Total 1494.533 659.308 180 Output Total 3150 3225 Balance -1655.467 -2565.692 180 Weight 94 kg Intake: IV 315.2 DOBUTamine DRIP 500 mg In 175.2 Dextrose/Water 1 250ml. bag @ 5 MCG/KG/MIN 14.59 mls/hr IV .Q17H9M [facility] Rx# :[id number] Furosemide 250 mg In 140 Sodium Chloride 0.9% 225 ml @ 15 MG/HR 15 mls/hr IVP .[id number] [facility] Rx#: [id number] Intake, IV Titration 486.333 419.308 Amount DOBUTamine DRIP 500 mg In 250 249.975 Dextrose/Water 1 250ml. bag @ 5 MCG/KG/MIN 14.59 mls/hr IV .Q17H9M [facility] Rx# :[id number] Furosemide 250 mg In 236.333 169.333 Sodium Chloride 0.9% 225 ml @ 15 MG/HR 15 mls/hr IVP .[id number] [facility] Rx#: [id number] Oral 693 240 180 Output: Urine 3150 3225 Other: Voiding Method Toilet Toilet Urinal Urinal # Voids 450 - Exam Physical exam 66-year-old male sitting up into bed appears in no acute distress Lungs diminished at the bases otherwise adequate air movement Heart S1-S2 audible no murmur noted denying chest pain Abdomen soft nondistended nontender urinating no difficulty no stool Extremities decreased edema to the lower extremity - Labs CBC & Chem 7: 01/05/17 05:50 01/07/17 05:39 Labs: Abnormal Lab Results - Last 24 Hours (Table) 01/06/17 01/06/17 01/06/17 Range/Units 11:56 16:33 20:59 PT (9.0-12.0) sec Chloride (98-107) mmol/L Carbon Dioxide (22-30) mmol/L BUN (9-20) mg/dL Creatinine (0.66-1.25) mg/dL Glucose (74-99) mg/dL POC Glucose (mg/dL) 113 H 119 H 127 H (75-99) mg/dL 01/07/17 01/07/17 01/07/17 Range/Units 05:39 05:39 05:50 PT 16.7 H (9.0-12.0) sec Chloride 91 L (98-107) mmol/L Carbon Dioxide 39 H (22-30) mmol/L BUN 61 H (9-20) mg/dL Creatinine 1.78 H (0.66-1.25) mg/dL Glucose 106 H (74-99) mg/dL POC Glucose (mg/dL) 110 H (75-99) mg/dL Microbiology - Last 24 Hours (Table) 01/03/17 14:00 Blood Culture - Preliminary Blood No Growth after 72 hours Assessment and Plan Plan: Impression Present on admission shortness of breath exertional dyspnea due to an acute exacerbation of decompensated systolic heart failure EF less than 20 Chronic hypoxic respiratory failure O2 dependent 4 L [id number] at home Current every day smoker active Hypertension Debility Hyperlipidemia History of Paroxysmal atrial fibrillation maintaining sinus on anticoagulation Coumadin Episode of nonsustained V. tach 18 beats Plan Continue recommendations by cardiology service Monitor intake and output and daily weights Reinforce smoking cessation information to be provided Resume home meds as appropriate Monitor blood pressure and heart rate address as indicated Continue recommendations by cardiology service currently on IV dobutamine Continue recommendations by nephrology service on IV Lasix drip Monitor electrolytes Continue entresto as ordered per cardiology The above impression and plan of care have been discussed and directed by signing physician. Kelin Catalan nurse practitioner acting as scribe for signing physician.
[2017-01-07 11:45] LABS: Glucose,Whole Blood 126 mg/dL (75-99)
--- NOTE | 2017-01-07 15:25 | P.PN ---
Subjective Principal diagnosis: Congestive heart failure This is a pleasant 66-year-old patient seen in consultation by Dr VC Mcnair yesterday. Currently being treated for congestive heart failure. He was initiated yesterday on IV Lasix and dobutamine drips. Patient is diuresing very well through the night last night, creatinine is 1.7 today. He was seen and examined sitting up in the chair. Overall he states she's feeling much better today. Blood pressure 86/50 with a heart rate in the 60s. We will continue current dose of IV Lasix drip. Decrease dobutamine drip to 2.5 mg, obtain chest x-ray in the morning Objective - Vital Signs Vital signs: Vital Signs Temp 98.8 F 01/07/17 11:35 Pulse 90 01/07/17 11:48 Resp 18 01/07/17 11:48 BP 80/53 01/07/17 13:57 Pulse Ox 97 01/07/17 11:35 Intake & Output 01/06/17 01/07/17 01/07/17 18:59 06:59 18:59 Intake Total 1494.533 659.308 590 Output Total 3150 3225 850 Balance -1655.467 -2565.692 -260 Weight 94 kg Intake: IV 315.2 135 DOBUTamine DRIP 500 mg In 175.2 75 Dextrose/Water 1 250ml. bag @ 5 MCG/KG/MIN 14.59 mls/hr IV .Q17H9M [facility] Rx# :[id number] Furosemide 250 mg In 140 60 Sodium Chloride 0.9% 225 ml @ 10 MG/HR 10 mls/hr IVP .Q24H [facility] Rx#: [id number] Intake, IV Titration 486.333 419.308 0 Amount DOBUTamine DRIP 500 mg In 250 249.975 Dextrose/Water 1 250ml. bag @ 5 MCG/KG/MIN 14.59 mls/hr IV .Q17H9M [facility] Rx# :[id number] Furosemide 250 mg In 236.333 169.333 0 Sodium Chloride 0.9% 225 ml @ 10 MG/HR 10 mls/hr IVP .Q24H [facility] Rx#: [id number] Oral 693 240 455 Output: Urine 3150 3225 850 Other: Voiding Method Toilet Toilet Urinal Urinal # Voids 450 3 - Exam PHYSICAL EXAMINATION: HEENT: Head is atraumatic, normocephalic. Pupils equal, round. Neck is supple. There is no elevated jugular venous pressure. HEART EXAMINATION: Heart S1, S2 normal. No murmur or gallop heard. CHEST EXAMINATION: Lungs reveal fine rales to bilateral bases. ABDOMEN: Soft, nontender. Hepatomegaly. Bowel sounds are heard. No organomegaly noted. EXTREMITIES: 2+ peripheral pulses with 1 plus evidence of peripheral edema and no calf tenderness noted. NEUROLOGIC patient is awake, alert and oriented -3.] . - Labs CBC & Chem 7: 01/05/17 05:50 01/07/17 05:39 Labs: Abnormal Lab Results - Last 24 Hours (Table) 01/06/17 01/06/17 01/07/17 Range/Units 16:33 20:59 05:39 PT 16.7 H (9.0-12.0) sec Chloride (98-107) mmol/L Carbon Dioxide (22-30) mmol/L BUN (9-20) mg/dL Creatinine (0.66-1.25) mg/dL Glucose (74-99) mg/dL POC Glucose (mg/dL) 119 H 127 H (75-99) mg/dL 01/07/17 01/07/17 01/07/17 Range/Units 05:39 05:50 11:34 PT (9.0-12.0) sec Chloride 91 L (98-107) mmol/L Carbon Dioxide 39 H (22-30) mmol/L BUN 61 H (9-20) mg/dL Creatinine 1.78 H (0.66-1.25) mg/dL Glucose 106 H (74-99) mg/dL POC Glucose (mg/dL) 110 H 126 H (75-99) mg/dL Microbiology - Last 24 Hours (Table) 01/03/17 14:00 Blood Culture - Preliminary Blood No Growth after 72 hours Assessment and Plan (1) Systolic CHF, acute on chronic Status: Acute (2) HTN (hypertension) Status: Acute (3) Diabetes Status: Acute (4) Hyperlipemia Status: Acute (5) Chronic a-fib Status: Acute (6) Renal insufficiency Status: Acute Plan: From cardiology's perspective, we'll recommend to decrease IV dobutamine to 2.5 mics per KG per minute, continue current dose of IV Lasix drip. Obtain chest x- ray in the morning. DNP note has been reviewed, I agree with a documented findings and plan of care. Patient was seen and examined.
[2017-01-07 16:54] LABS: Glucose,Whole Blood 119 mg/dL (75-99)
[2017-01-07 21:00] LABS: Glucose,Whole Blood 120 mg/dL (75-99)
[2017-01-07] MEDS: WARFARIN 2 MG TAB PO SCH (21:05)
[2017-01-07] MEDS: FAMOTIDINE 20 MG TAB PO SCH (21:05)
[2017-01-07] MEDS: ATORVASTATIN 40 MG TAB PO SCH (21:05)
[2017-01-07] MEDS: IPRATROPIUM-ALBUTEROL 3 ML NEB INHALATION PRN (22:58)
[2017-01-08 04:15] LABS: Calcium 8.8 mg/dL (8.4-10.2); Magnesium 2.3 mg/dL (1.6-2.3); Potassium 4.4 mmol/L (3.5-5.1)
[2017-01-08] MEDS: NITROGLYCERIN OINT 1 INCH/GM PACKET TOPICAL SCH ×2 (04:46→09:43)
[2017-01-08 04:53] LABS: INR 1.5 (<1.1); Prothrombin Time 14.6 sec (9.0-12.0)
[2017-01-08 06:22] LABS: Glucose,Whole Blood 94 mg/dL (75-99)
[2017-01-08] MEDS: CARVEDILOL 3.125 MG TAB PO SCH ×2 (06:39→17:10)
[2017-01-08] MEDS: FUROSEMIDE 250 MG in SODIUM CHLORIDE 0.9% 225 ML IVP SCH (06:39)
[2017-01-08] MEDS: SYMBICORT 80-4.5 MCG INHALER INHALATION SCH ×2 (08:02→20:11)
[2017-01-08] MEDS: IPRATROPIUM-ALBUTEROL 3 ML NEB INHALATION SCH ×4 (08:02→20:11)
[2017-01-08] MEDS: TIOTROPIUM 18 MCG/PUFF INHALER INHALATION SCH (08:02)
--- NOTE | 2017-01-08 08:13 | XR ---
EXAMINATION TYPE: XR chest 2V DATE OF EXAM: 01/08/2017 HISTORY: f/u chf. REFERENCE: Previous study dated 01/03/2017. FINDINGS: Lung volumes are prominent. Heart size upper limits of normal. The lungs are clear. Pleural spaces are clear. IMPRESSION: 1. COPD. 2. BORDERLINE CARDIOMEGALY.
[2017-01-08] MEDS: METOLAZONE 5 MG TAB PO SCH (09:27)
--- NOTE | 2017-01-08 09:27 | P.PN ---
Subjective Patient is seen in follow-up for acute kidney injury. Patient has systolic CHF with ejection fraction of less than 20% and moderate mitral regurgitation and pulmonary hypertension. Patient presented with dyspnea. He is currently maintained on Lasix drip. Dobutamine was discontinued yesterday. Patient states his dyspnea as well as his edema is much improved since admission. No vomiting or diarrhea. Oral intake is good. Urine output was over 6 L in the last 24 hours. Bicarb level is up to 39 and creatinine is elevated at 2.2 today. Vital signs are stable. General: The patient appeared well nourished and normally developed. HEENT: Head exam is unremarkable. Neck is without jugular venous distension. LUNGS: Lungs are clear to auscultation and percussion. Breath sounds decreased. HEART: Rate and Rhythm are regular. First and second heart sounds normal. No murmurs, rubs or gallops. ABDOMEN: Abdominal exam reveals normal bowel sounds. Non-tender and non- distended. No evidence of peritonitis. EXTREMITITES: Trace edema. Objective - Vital Signs Vital signs: Vital Signs Temp 97.7 F 01/08/17 04:00 Pulse 80 01/08/17 08:18 Resp 20 01/08/17 04:00 BP 92/57 01/08/17 04:00 Pulse Ox 97 01/08/17 04:00 Intake & Output 01/07/17 01/08/17 01/08/17 18:59 06:59 18:59 Intake Total 715 496.033 Output Total 1650 1950 400 Balance -935 -1453.967 -400 Weight 93 kg Intake: IV 135 300.70 DOBUTamine DRIP 500 mg In 80.70 Dextrose/Water 1 250ml. bag @ 2.5 MCG/KG/MIN 7.05 mls/hr IV .Q24H [facility] Rx#: [id number] DOBUTamine DRIP 500 mg In 75 Dextrose/Water 1 250ml. bag @ 5 MCG/KG/MIN 14.59 mls/hr IV .Q17H9M [facility] Rx# :[id number] Furosemide 250 mg In 60 110 Sodium Chloride 0.9% 225 ml @ 10 MG/HR 10 mls/hr IVP .Q24H [facility] Rx#: [id number] IV Flush 110 Intake, IV Titration 0 195.333 Amount Furosemide 250 mg In 0 195.333 Sodium Chloride 0.9% 225 ml @ 10 MG/HR 10 mls/hr IVP .Q24H [facility] Rx#: [id number] Oral 580 Output: Urine 1650 1950 400 Other: Voiding Method Toilet Toilet Urinal Urinal # Voids 3 1 - Labs CBC & Chem 7: 01/05/17 05:50 01/08/17 03:35 Labs: Abnormal Lab Results - Last 24 Hours (Table) 01/07/17 01/07/17 01/07/17 Range/Units 11:34 16:46 20:43 PT (9.0-12.0) sec Sodium (137-145) mmol/L Chloride (98-107) mmol/L Carbon Dioxide (22-30) mmol/L BUN (9-20) mg/dL Creatinine (0.66-1.25) mg/dL POC Glucose (mg/dL) 126 H 119 H 120 H (75-99) mg/dL 01/08/17 01/08/17 Range/Units 03:35 03:35 PT 14.6 H (9.0-12.0) sec Sodium 136 L (137-145) mmol/L Chloride 85 L (98-107) mmol/L Carbon Dioxide 39 H (22-30) mmol/L BUN 67 H (9-20) mg/dL Creatinine 2.20 H (0.66-1.25) mg/dL POC Glucose (mg/dL) (75-99) mg/dL Microbiology - Last 24 Hours (Table) 01/03/17 14:00 Blood Culture - Preliminary Blood No Growth after 96 hours Assessment and Plan Plan: Assessment: #1. Nonoliguric acute kidney injury secondary to cardiorenal syndrome. Creatinine elevated at 2.2 which is due to diuresis. #2. Volume overload. Improving. #3. Systolic CHF with ejection fraction of less than 20% with moderate mitral regurgitation and pulmonary hypertension. #4. Rule out chronic kidney disease. Unclear as to what his baseline renal function is. Urinalysis noted to be benign. #5. Metabolic alkalosis secondary to diuretic induced volume contraction. Plan: Discontinue Lasix drip and start Lasix 40 mg orally twice daily. I will add metolazone 2.5 mg 3 times weekly. Strict I's and O's and daily weights. Avoid nephrotoxic agents and hypotensive episodes. Repeat electrolytes in the morning. Stable to be discharged home from nephrology standpoint. I advised him to follow a low-salt and a 15 pounds fluid restricted diet. He is to weigh himself daily and to increase Lasix to 3 times a day for weight gain over 2-3 pounds. He will need to follow-up as an outpatient in the next 2 weeks.
[2017-01-08] MEDS: SPIRONOLACTONE 25 MG TAB PO SCH (11:45)
[2017-01-08] MEDS: traMADol 50 MG TAB PO SCH ×2 (11:45→21:08)
[2017-01-08] MEDS: SACUBITRIL/VALSARTAN 24 MG-26 MG TABLET PO SCH ×2 (11:46→21:10)
[2017-01-08] MEDS: TAMSULOSIN 0.4 MG CAP.ER.24H PO SCH (11:46)
[2017-01-08] MEDS: FERROUS SULFATE 325 MG TAB PO SCH (11:46)
[2017-01-08 12:03] LABS: Glucose,Whole Blood 111 mg/dL (75-99)
[2017-01-08] MEDS ORDERED: MIDODRINE 5 MG TAB PO SCH (12:30)
--- NOTE | 2017-01-08 13:03 | P.PN ---
Subjective Seen and evaluated this morning. Currently states breathing continues to improve. The dobutamine drip was stopped yesterday. Patient is maintained on a Lasix drip and being followed by nephrology and cardiology service. Did note that the urine output 6 L in the past 24 hours. The creatinine is elevated 2.2. There is an improvement in the edema to the bilateral lower extremities. Patient states breathing feels improved Lasix has been changed over to oral 40 twice a day by cardiology's recommendations Objective - Vital Signs Vital signs: Vital Signs Temp 97.5 F L 01/08/17 11:37 Pulse 80 01/08/17 12:12 Resp 16 01/08/17 11:37 BP 94/60 01/08/17 11:37 Pulse Ox 100 01/08/17 11:37 Intake & Output 01/07/17 01/08/17 01/08/17 18:59 06:59 18:59 Intake Total 715 496.033 Output Total 1650 1950 600 Balance -935 -1453.967 -600 Weight 93 kg Intake: IV 135 300.70 DOBUTamine DRIP 500 mg In 80.70 Dextrose/Water 1 250ml. bag @ 2.5 MCG/KG/MIN 7.05 mls/hr IV .Q24H [facility] Rx#: [id number] DOBUTamine DRIP 500 mg In 75 Dextrose/Water 1 250ml. bag @ 5 MCG/KG/MIN 14.59 mls/hr IV .Q17H9M [facility] Rx# :[id number] Furosemide 250 mg In 60 110 Sodium Chloride 0.9% 225 ml @ 10 MG/HR 10 mls/hr IVP .Q24H [facility] Rx#: [id number] IV Flush 110 Intake, IV Titration 0 195.333 Amount Furosemide 250 mg In 0 195.333 Sodium Chloride 0.9% 225 ml @ 10 MG/HR 10 mls/hr IVP .Q24H [facility] Rx#: [id number] Oral 580 Output: Urine 1650 1950 600 Other: Voiding Method Toilet Toilet Toilet Urinal Urinal Urinal # Voids 3 1 - Exam Physical exam 66-year-old male sitting up into bed appears in no acute distress with a weight this morning 93 kg the weight the day before 94 kg Lungs diminished at the bases otherwise adequate air movement 4 L sats are documented 96% states breathing feels improved less short of Heart S1-S2 audible no murmur noted denying chest pain Abdomen soft nondistended nontender urinating no difficulty no stool Extremities decreased edema to the lower extremity - Labs CBC & Chem 7: 01/05/17 05:50 01/08/17 03:35 Labs: Abnormal Lab Results - Last 24 Hours (Table) 01/07/17 01/07/17 01/08/17 Range/Units 16:46 20:43 03:35 PT 14.6 H (9.0-12.0) sec Sodium (137-145) mmol/L Chloride (98-107) mmol/L Carbon Dioxide (22-30) mmol/L BUN (9-20) mg/dL Creatinine (0.66-1.25) mg/dL POC Glucose (mg/dL) 119 H 120 H (75-99) mg/dL 01/08/17 01/08/17 Range/Units 03:35 11:42 PT (9.0-12.0) sec Sodium 136 L (137-145) mmol/L Chloride 85 L (98-107) mmol/L Carbon Dioxide 39 H (22-30) mmol/L BUN 67 H (9-20) mg/dL Creatinine 2.20 H (0.66-1.25) mg/dL POC Glucose (mg/dL) 111 H (75-99) mg/dL Microbiology - Last 24 Hours (Table) 01/03/17 14:00 Blood Culture - Preliminary Blood No Growth after 96 hours Assessment and Plan Plan: Impression Present on admission shortness of breath exertional dyspnea due to an acute exacerbation of decompensated systolic heart failure EF less than 20 Chronic hypoxic respiratory failure O2 dependent 4 L [id number] at home Current every day smoker active Hypertension Debility Hyperlipidemia History of Paroxysmal atrial fibrillation maintaining sinus on anticoagulation Coumadin Episode of nonsustained V. tach 18 beats Metabolic alkalosis secondary to diuretics induced volume contraction Plan Continue recommendations by cardiology service Monitor intake and output and daily weights Reinforce smoking cessation information to be provided Resume home meds as appropriate Monitor blood pressure and heart rate address as indicated Monitor electrolytes Continue entresto as ordered per cardiology Monitor the INR The above impression and plan of care have been discussed and directed by signing physician. Kelin Catalan nurse practitioner acting as scribe for signing physician.
[2017-01-08] MEDS: DOBUTamine DRIP 500 MG in DEXTROSE/WATER 1 250ML.BAG IV SCH (16:09)
[2017-01-08 17:05] LABS: Glucose,Whole Blood 99 mg/dL (75-99)
[2017-01-08] MEDS: FUROSEMIDE 40 MG TAB PO SCH (17:10)
[2017-01-08 20:50] LABS: Glucose,Whole Blood 128 mg/dL (75-99)
[2017-01-08] MEDS: FAMOTIDINE 20 MG TAB PO SCH (21:08)
[2017-01-08] MEDS: ATORVASTATIN 40 MG TAB PO SCH (21:10)
[2017-01-08] MEDS: WARFARIN 2 MG TAB PO SCH (21:10)
[2017-01-09] MEDS: IPRATROPIUM-ALBUTEROL 3 ML NEB INHALATION PRN ×2 (00:02→23:50)
[2017-01-09 05:49] LABS: Glucose,Whole Blood 105 mg/dL (75-99)
[2017-01-09 06:19] LABS: INR 1.4 (<1.1); Prothrombin Time 13.6 sec (9.0-12.0)
[2017-01-09 06:44] LABS: Calcium 8.6 mg/dL (8.4-10.2); Potassium 4.6 mmol/L (3.5-5.1)
[2017-01-09] MEDS: SYMBICORT 80-4.5 MCG INHALER INHALATION SCH ×2 (07:59→19:33)
[2017-01-09] MEDS: IPRATROPIUM-ALBUTEROL 3 ML NEB INHALATION SCH ×4 (07:59→19:33)
[2017-01-09] MEDS: TIOTROPIUM 18 MCG/PUFF INHALER INHALATION SCH (08:10)
[2017-01-09] MEDS: TAMSULOSIN 0.4 MG CAP.ER.24H PO SCH (08:50)
[2017-01-09] MEDS: SACUBITRIL/VALSARTAN 24 MG-26 MG TABLET PO SCH ×2 (08:50→20:31)
[2017-01-09] MEDS: SPIRONOLACTONE 25 MG TAB PO SCH (08:51)
[2017-01-09] MEDS: FERROUS SULFATE 325 MG TAB PO SCH (08:52)
[2017-01-09] MEDS: FUROSEMIDE 40 MG TAB PO SCH (08:52)
[2017-01-09] MEDS: traMADol 50 MG TAB PO SCH ×2 (08:55→20:31)
[2017-01-09] MEDS ORDERED: METOLAZONE 2.5 MG TAB PO SCH (09:00)
--- NOTE | 2017-01-09 09:01 | P.PN ---
Subjective Patient is seen in follow-up for acute kidney injury. Patient has systolic CHF with ejection fraction of less than 20% and moderate mitral regurgitation and pulmonary hypertension. Patient presented with dyspnea. He is currently maintained on oral Lasix. He is also on dobutamine drip. Patient states his dyspnea as well as his edema is much improved since admission. No vomiting or diarrhea. Oral intake is good. Bicarb level is down to 35 and creatinine is elevated at 2.6 today. Vital signs are stable. General: The patient appeared well nourished and normally developed. HEENT: Head exam is unremarkable. Neck is without jugular venous distension. LUNGS: Lungs are clear to auscultation and percussion. Breath sounds decreased. HEART: Rate and Rhythm are regular. First and second heart sounds normal. No murmurs, rubs or gallops. ABDOMEN: Abdominal exam reveals normal bowel sounds. Non-tender and non- distended. No evidence of peritonitis. EXTREMITITES: Trace edema. Objective - Vital Signs Vital signs: Vital Signs Temp 97.4 F L 01/09/17 03:56 Pulse 88 01/09/17 08:14 Resp 16 01/09/17 03:57 BP 85/48 01/09/17 03:56 Pulse Ox 95 01/09/17 08:00 Intake & Output 01/08/17 01/09/17 01/09/17 18:59 06:59 18:59 Intake Total 407.668 136 Output Total 1400 875 Balance -992.332 -739 Weight 94.3 kg Intake: IV 136 0.9 Normal Saline 80 DOBUTamine DRIP 500 mg In 56 Dextrose/Water 1 250ml. bag @ 2.5 MCG/KG/MIN 7.05 mls/hr IV .Q24H [facility] Rx#: [id number] Intake, IV Titration 171.668 Amount DOBUTamine DRIP 500 mg In 171.668 Dextrose/Water 1 250ml. bag @ 2.5 MCG/KG/MIN 7.05 mls/hr IV .Q24H [facility] Rx#: [id number] Oral 236 Output: Urine 1400 875 Other: Voiding Method Toilet Toilet Urinal Urinal - Labs CBC & Chem 7: 01/05/17 05:50 01/09/17 05:36 Labs: Abnormal Lab Results - Last 24 Hours (Table) 0601/08/17 01/09/17 Range/Units 11:42 20:49 05:36 PT 13.6 H (9.0-12.0) sec Sodium (137-145) mmol/L Chloride (98-107) mmol/L Carbon Dioxide (22-30) mmol/L BUN (9-20) mg/dL Creatinine (0.66-1.25) mg/dL POC Glucose (mg/dL) 111 H 128 H (75-99) mg/dL 01/09/17 01/09/17 Range/Units 05:36 05:48 PT (9.0-12.0) sec Sodium 132 L (137-145) mmol/L Chloride 85 L (98-107) mmol/L Carbon Dioxide 35 H (22-30) mmol/L BUN 83 H* (9-20) mg/dL Creatinine 2.60 H (0.66-1.25) mg/dL POC Glucose (mg/dL) 105 H (75-99) mg/dL Microbiology - Last 24 Hours (Table) 01/03/17 14:00 Blood Culture - Preliminary Blood No Growth after 120 hours Assessment and Plan Plan: Assessment: #1. Nonoliguric acute kidney injury secondary to cardiorenal syndrome. Creatinine elevated at 2.6 which is due to diuresis. #2. Volume overload. Improved. #3. Systolic CHF with ejection fraction of less than 20% with moderate mitral regurgitation and pulmonary hypertension. #4. Rule out chronic kidney disease. Unclear as to what his baseline renal function is. Urinalysis noted to be benign. #5. Metabolic alkalosis secondary to diuretic induced volume contraction. Improved. Plan: Hold Lasix today. Discussed with cardiology. To likely discontinue dobutamine drip. Strict I's and O's and daily weights. Avoid nephrotoxic agents and hypotensive episodes. Repeat electrolytes in the morning. Midodrine 5 mg as needed for systolic blood pressure less than 90. I advised him to follow a low-salt and a 15 pounds fluid restricted diet. He is to weigh himself daily and to increase Lasix to 3 times a day for weight gain over 2-3 pounds. He will need to follow-up as an outpatient in the next 2 weeks.
[2017-01-09] MEDS: MIDODRINE 5 MG TAB PO PRN ×2 (09:32→17:38)
[2017-01-09 11:11] VITALS: BMI 30.7
[2017-01-09] MEDS: CARVEDILOL 3.125 MG TAB PO SCH ×2 (11:27→17:39)
[2017-01-09 11:31] LABS: Glucose,Whole Blood 127 mg/dL (75-99)
--- NOTE | 2017-01-09 13:58 | P.PN ---
Subjective 66-year-old male seen and evaluated currently sitting up on the edge of the bed taking a diet. Patient states breathing feels "significantly improved. There is a noted improvement in the edema to the lower extremities. The weight this morning is documented 94 0.3 currently the IV dobutamine drip infusing per cardiology's recommendations. Nephrology recommendations reviewed noted. Lasix has been held this morning did note that the systolic blood pressure is low this morning in the 70s heart rate is in the 80s patient is denying any dizziness or lightheadedness Objective - Vital Signs Vital signs: Vital Signs Temp 96.8 F L 01/09/17 08:10 Pulse 80 01/09/17 11:43 Resp 18 01/09/17 08:10 BP 79/45 01/09/17 08:10 Pulse Ox 95 01/09/17 08:10 Intake & Output 01/08/17 01/09/17 01/09/17 18:59 06:59 18:59 Intake Total 407.668 136 360 Output Total 1400 875 Balance -992.332 -739 360 Weight 94.3 kg 94.3 kg Intake: IV 136 0.9 Normal Saline 80 DOBUTamine DRIP 500 mg In 56 Dextrose/Water 1 250ml. bag @ 2.5 MCG/KG/MIN 7.05 mls/hr IV .Q24H [facility] Rx#: [id number] Intake, IV Titration 171.668 Amount DOBUTamine DRIP 500 mg In 171.668 Dextrose/Water 1 250ml. bag @ 2.5 MCG/KG/MIN 7.05 mls/hr IV .Q24H [facility] Rx#: [id number] Oral 236 360 Output: Urine 1400 875 Other: Voiding Method Toilet Toilet Urinal Urinal - Exam Physical exam 66-year-old male sitting up on the edge of the bed taking a diet this afternoon patient states "this is the best I have felt" Lungs diminished at the bases otherwise adequate air movement sats are documented 95% on 4 L Heart S1-S2 audible and irregular monitor A. fib rate controlled had an episode of a 6 beat nonsustained V. tach episode asymptomatic Abdomen soft nontender not distended no reports of nausea vomiting Extremities no edema noted to the bilateral lower extremities - Labs CBC & Chem 7: 01/05/17 05:50 01/09/17 05:36 Labs: Abnormal Lab Results - Last 24 Hours (Table) 01/08/17 01/09/17 01/09/17 Range/Units 20:49 05:36 05:36 PT 13.6 H (9.0-12.0) sec Sodium 132 L (137-145) mmol/L Chloride 85 L (98-107) mmol/L Carbon Dioxide 35 H (22-30) mmol/L BUN 83 H* (9-20) mg/dL Creatinine 2.60 H (0.66-1.25) mg/dL POC Glucose (mg/dL) 128 H (75-99) mg/dL 01/09/17 01/09/17 Range/Units 05:48 11:29 PT (9.0-12.0) sec Sodium (137-145) mmol/L Chloride (98-107) mmol/L Carbon Dioxide (22-30) mmol/L BUN (9-20) mg/dL Creatinine (0.66-1.25) mg/dL POC Glucose (mg/dL) 105 H 127 H (75-99) mg/dL Microbiology - Last 24 Hours (Table) 01/03/17 14:00 Blood Culture - Preliminary Blood No Growth after 120 hours Assessment and Plan Plan: Impression Present on admission shortness of breath exertional dyspnea due to an acute exacerbation of decompensated systolic heart failure EF less than 20 Chronic hypoxic respiratory failure O2 dependent 4 L [id number] at home Current every day smoker active Hypertension Debility Hyperlipidemia History of Paroxysmal atrial fibrillation maintaining sinus on anticoagulation Coumadin Episode of nonsustained V. tach Metabolic alkalosis secondary to diuretics induced volume contraction Nonoliguric acute kidney injury secondary to cardiorenal syndrome. Creatinine 2.6 on January 09 suspect due to diuresis Plan Continue recommendations by cardiology service Monitor intake and output and daily weights Reinforce smoking cessation information to be provided Resume home meds as appropriate Monitor blood pressure and heart rate address as indicated Monitor electrolytes Continue entresto as ordered per cardiology The above impression and plan of care have been discussed and directed by signing physician. Kelin Catalan nurse practitioner acting as scribe for signing physician.
--- NOTE | 2017-01-09 14:46 | P.PN ---
Subjective patient is feeling well. Denies shortness of breath. His creatinine is increased to 2.6 this is probably secondary to excessive diuresis. Lasix is discontinued we will give him fluids at 75 mL/h check the chest x-ray tomorrow morning. Objective - Vital Signs Vital signs: Vital Signs Temp 97.4 F L 01/09/17 11:25 Pulse 80 01/09/17 11:43 Resp 18 01/09/17 11:25 BP 92/54 01/09/17 11:25 Pulse Ox 95 01/09/17 11:25 Intake & Output 01/08/17 01/09/17 01/09/17 18:59 06:59 18:59 Intake Total 407.668 136 360 Output Total 1400 875 Balance -992.332 -739 360 Weight 94.3 kg 94.3 kg Intake: IV 136 0.9 Normal Saline 80 DOBUTamine DRIP 500 mg In 56 Dextrose/Water 1 250ml. bag @ 2.5 MCG/KG/MIN 7.05 mls/hr IV .Q24H [facility] Rx#: [id number] Intake, IV Titration 171.668 Amount DOBUTamine DRIP 500 mg In 171.668 Dextrose/Water 1 250ml. bag @ 2.5 MCG/KG/MIN 7.05 mls/hr IV .Q24H [facility] Rx#: [id number] Oral 236 360 Output: Urine 1400 875 Other: Voiding Method Toilet Toilet Urinal Urinal - Exam vital signs are reviewed liberated tests are reviewed First and second heart sounds are normal. Lungs source few scattered wheezes. Leg edema is absent. - Labs CBC & Chem 7: 01/05/17 05:50 01/09/17 05:36 Labs: Abnormal Lab Results - Last 24 Hours (Table) 01/08/17 01/09/17 01/09/17 Range/Units 20:49 05:36 05:36 PT 13.6 H (9.0-12.0) sec Sodium 132 L (137-145) mmol/L Chloride 85 L (98-107) mmol/L Carbon Dioxide 35 H (22-30) mmol/L BUN 83 H* (9-20) mg/dL Creatinine 2.60 H (0.66-1.25) mg/dL POC Glucose (mg/dL) 128 H (75-99) mg/dL 01/09/17 01/09/17 Range/Units 05:48 11:29 PT (9.0-12.0) sec Sodium (137-145) mmol/L Chloride (98-107) mmol/L Carbon Dioxide (22-30) mmol/L BUN (9-20) mg/dL Creatinine (0.66-1.25) mg/dL POC Glucose (mg/dL) 105 H 127 H (75-99) mg/dL Microbiology - Last 24 Hours (Table) 01/03/17 14:00 Blood Culture - Preliminary Blood No Growth after 120 hours Assessment and Plan Plan: patient's diuretics are discontinued. We will give IV fluids at 75 mL/h to chest x-ray and BMP in the morning
[2017-01-09 16:34] LABS: Glucose,Whole Blood 119 mg/dL (75-99)
[2017-01-09] MEDS: SODIUM CHLORIDE 0.9% 1,000 ML IV SCH (16:42)
[2017-01-09] MEDS: WARFARIN 2 MG TAB PO SCH (20:31)
[2017-01-09] MEDS: ATORVASTATIN 40 MG TAB PO SCH (20:32)
[2017-01-09] MEDS: FAMOTIDINE 20 MG TAB PO SCH (20:32)
[2017-01-09 20:57] LABS: Glucose,Whole Blood 129 mg/dL (75-99)
[2017-01-10] MEDS: SODIUM CHLORIDE 0.9% 1,000 ML IV SCH ×2 (03:55→14:34)
[2017-01-10 05:38] LABS: Glucose,Whole Blood 118 mg/dL (75-99)
[2017-01-10] MEDS: traMADol 50 MG TAB PO SCH ×2 (06:59→19:57)
[2017-01-10] MEDS: CARVEDILOL 3.125 MG TAB PO SCH ×2 (07:00→17:30)
--- NOTE | 2017-01-10 07:49 | P.PN ---
Subjective Patient is seen in follow-up for acute kidney injury. Patient has systolic CHF with ejection fraction of less than 20% and moderate mitral regurgitation and pulmonary hypertension. Patient presented with dyspnea. He he was initially diuresed but diuretics were held yesterday due to elevated BUN and creatinine. He was also on dobutamine drip which has now been discontinued. Patient states his dyspnea as well as his edema is much improved since admission. No vomiting or diarrhea. Oral intake is good. He was started on IV fluids per cardiology yesterday. His weight is up by 2 kg. Vital signs are stable. General: The patient appeared well nourished and normally developed. HEENT: Head exam is unremarkable. Neck is without jugular venous distension. LUNGS: Lungs are clear to auscultation and percussion. Breath sounds decreased. HEART: Rate and Rhythm are regular. First and second heart sounds normal. No murmurs, rubs or gallops. ABDOMEN: Abdominal exam reveals normal bowel sounds. Non-tender and non- distended. No evidence of peritonitis. EXTREMITITES: Trace edema. Objective - Vital Signs Vital signs: Vital Signs Temp 97.3 F L 01/10/17 04:00 Pulse 87 01/10/17 04:00 Resp 16 01/10/17 04:00 BP 90/48 01/10/17 04:00 Pulse Ox 95 01/10/17 04:00 Intake & Output 01/09/17 01/10/17 01/10/17 18:59 06:59 18:59 Intake Total 1560 Output Total 775 Balance 1560 -775 Weight 94.3 kg 96.7 kg Intake: IV 600 0.9 Normal Saline 600 Oral 960 Output: Urine 775 Other: Voiding Method Toilet Urinal - Labs CBC & Chem 7: 01/05/17 05:50 01/09/17 05:36 Labs: Abnormal Lab Results - Last 24 Hours (Table) 01/09/17 01/09/17 01/09/17 Range/Units 11:29 16:32 20:56 POC Glucose (mg/dL) 127 H 119 H 129 H (75-99) mg/dL 01/10/17 Range/Units 05:37 POC Glucose (mg/dL) 118 H (75-99) mg/dL Microbiology - Last 24 Hours (Table) 01/03/17 14:00 Blood Culture - Final Blood No Growth after 144 hours Assessment and Plan Plan: Assessment: #1. Nonoliguric acute kidney injury secondary to cardiorenal syndrome. Creatinine elevated at 2.6 which is due to diuresis. Labs from today are pending at this time. #2. Volume overload. Improved. #3. Systolic CHF with ejection fraction of less than 20% with moderate mitral regurgitation and pulmonary hypertension. #4. Rule out chronic kidney disease. Unclear as to what his baseline renal function is. Urinalysis noted to be benign. #5. Metabolic alkalosis secondary to diuretic induced volume contraction. Improved. Plan: Discontinue IV fluids. Strict I's and O's and daily weights. Avoid nephrotoxic agents and hypotensive episodes. Repeat electrolytes in the morning. Midodrine 5 mg as needed for systolic blood pressure less than 90. I advised him to follow a low-salt and a 50 ounce fluid restricted diet. Stable to be discharged home on Lasix 40 mg orally twice daily. He is to weigh himself daily and to increase Lasix to 3 times a day for weight gain over 2-3 pounds. He will need to follow-up as an outpatient in the next 2 weeks.
[2017-01-10] MEDS: IPRATROPIUM-ALBUTEROL 3 ML NEB INHALATION SCH ×4 (07:51→19:30)
[2017-01-10] MEDS: SYMBICORT 80-4.5 MCG INHALER INHALATION SCH ×2 (07:52→19:41)
[2017-01-10 08:11] LABS: INR 1.3 (<1.1)
[2017-01-10 08:11] LABS: Calcium 8.4 mg/dL (8.4-10.2); Potassium 4.8 mmol/L (3.5-5.1)
--- NOTE | 2017-01-10 09:37 | XR ---
EXAMINATION TYPE: XR chest 2V DATE OF EXAM: 01/10/2017 COMPARISON: 01/08/2017 INDICATION: CHF TECHNIQUE: Frontal and lateral views of the chest are obtained. FINDINGS: The heart size is normal. The pulmonary vasculature is normal. Minimal posterior pleural fluid and a be present. Finding is stable from prior exam. IMPRESSION: 1. Minimal posterior pleural effusions. Lung taveras are otherwise clear.
[2017-01-10] MEDS: SACUBITRIL/VALSARTAN 24 MG-26 MG TABLET PO SCH ×2 (10:11→19:57)
[2017-01-10] MEDS: SPIRONOLACTONE 25 MG TAB PO SCH (10:11)
[2017-01-10] MEDS: TAMSULOSIN 0.4 MG CAP.ER.24H PO SCH (10:12)
[2017-01-10] MEDS: FERROUS SULFATE 325 MG TAB PO SCH (10:12)
[2017-01-10 11:58] LABS: Glucose,Whole Blood 167 mg/dL (75-99)
[2017-01-10] MEDS: TIOTROPIUM 18 MCG/PUFF INHALER INHALATION SCH (13:37)
--- NOTE | 2017-01-10 13:37 | P.PN ---
Subjective Principal diagnosis: Congestive heart failure as gained 6 pounds overnight off the dopamine drip Hopefully would discharge him home tomorrow and only takes 4 L oxygen at home will reassess his medications for hypotension today cardiac medications and possibly discharge home in the morning Objective - Vital Signs Vital signs: Vital Signs Temp 97.6 F 01/10/17 12:00 Pulse 84 01/10/17 13:26 Resp 16 01/10/17 13:26 BP 89/59 01/10/17 12:00 Pulse Ox 100 01/10/17 12:00 Intake & Output 01/09/17 01/10/17 01/10/17 18:59 06:59 18:59 Intake Total 1560 610 Output Total 775 300 Balance 1560 -775 310 Weight 94.3 kg 96.7 kg Intake: IV 600 10 0.9 Normal Saline 600 IV Flush 10 Intake, IV Titration 600 Amount Sodium Chloride 0.9% 1, 600 000 ml @ 75 mls/hr IV . [id number] [facility] Rx#:[id number] Oral 960 Output: Urine 775 300 Other: Voiding Method Toilet Urinal # Voids 1 - Exam Physical exam 66-year-old male sitting up on the edge of the bed taking a diet this afternoon patient states "this is the best I have felt" Lungs diminished at the bases otherwise adequate air movement sats are documented 95% on 4 L Heart S1-S2 audible and irregular monitor A. fib rate controlled had an episode of a 6 beat nonsustained V. tach episode asymptomatic Abdomen soft nontender not distended no reports of nausea vomiting Extremities no edema noted to the bilateral lower extremities Left great toe red and swollen rating down radiating down to the mid foot on the left foot and at the right - Constitutional General appearance: Present: obese - EENT Eyes: Present: normal appearance ENT: Present: hearing grossly normal Ears: bilateral: normal - Neck Thyroid: negative: normal size - Respiratory Respiratory: bilateral: rales - Labs CBC & Chem 7: 01/05/17 05:50 01/10/17 07:21 Labs: Abnormal Lab Results - Last 24 Hours (Table) 01/09/17 01/09/17 01/10/17 Range/Units 16:32 20:56 05:37 PT (9.0-12.0) sec Sodium (137-145) mmol/L Chloride (98-107) mmol/L Carbon Dioxide (22-30) mmol/L BUN (9-20) mg/dL Creatinine (0.66-1.25) mg/dL POC Glucose (mg/dL) 119 H 129 H 118 H (75-99) mg/dL 01/10/17 01/10/17 01/10/17 Range/Units 07:21 07:23 11:37 PT 13.0 H (9.0-12.0) sec Sodium 134 L (137-145) mmol/L Chloride 88 L (98-107) mmol/L Carbon Dioxide 35 H (22-30) mmol/L BUN 92 H* (9-20) mg/dL Creatinine 2.70 H (0.66-1.25) mg/dL POC Glucose (mg/dL) 167 H (75-99) mg/dL Microbiology - Last 24 Hours (Table) 01/03/17 14:00 Blood Culture - Final Blood No Growth after 144 hours Assessment and Plan Plan: Impression Present on admission shortness of breath exertional dyspnea due to an acute exacerbation of decompensated systolic heart failure EF less than 20 Chronic hypoxic respiratory failure O2 dependent 4 L [id number] at home Current every day smoker active Hypertension Debility Hyperlipidemia History of Paroxysmal atrial fibrillation maintaining sinus on anticoagulation Coumadin Episode of nonsustained V. tach Metabolic alkalosis secondary to diuretics induced volume contraction Nonoliguric acute kidney injury secondary to cardiorenal syndrome. Creatinine 2.6 on January 09 suspect due to diuresis Plan Continue recommendations by cardiology service Monitor intake and output and daily weights Reinforce smoking cessation information to be provided Resume home meds as appropriate Monitor blood pressure and heart rate address as indicated Monitor electrolytes Continue entresto as ordered per cardiology IV Cytomel O 60 every 83 doses for gout cannot take colchicine due to elevated creatinine
--- NOTE | 2017-01-10 13:47 | P.PN ---
Subjective 66-year-old male being seen and examined with the attending patient is sitting up in the bed. The dobutamine drip has been stopped by cardiology service the day before. Chief complaint this morning is "having a lot of pain in the left great toe goes down to the bottom of my foot. Patient does give a history of having gout. The left great toe tender with redness did note the systolic blood pressure is in the 80s this morning with heart rate in the 80s. Patient' s weight is up this morning 96.7 kg the day before was 94.3 cardiology is participating in the plan of care did note the creatinine is up to 2.7 this morning patient denies any dizziness lightheadedness chest pain or shortness of breath when questioning. Did speak with cardiology service and indicated will make adjustments in patient's antihypertensive meds due to the patient's low systolic blood pressure Objective - Vital Signs Vital signs: Vital Signs Temp 97.6 F 01/10/17 12:00 Pulse 84 01/10/17 13:26 Resp 16 01/10/17 13:26 BP 89/59 01/10/17 12:00 Pulse Ox 100 01/10/17 12:00 Intake & Output 01/09/17 01/10/17 01/10/17 18:59 06:59 18:59 Intake Total 1560 610 Output Total 775 300 Balance 1560 -775 310 Weight 94.3 kg 96.7 kg Intake: IV 600 10 0.9 Normal Saline 600 IV Flush 10 Intake, IV Titration 600 Amount Sodium Chloride 0.9% 1, 600 000 ml @ 75 mls/hr IV . [id number] [facility] Rx#:[id number] Oral 960 Output: Urine 775 300 Other: Voiding Method Toilet Urinal # Voids 1 - Exam Physical exam 66-year-old male sitting up on the edge of the bed chief complaint this morning left great toe pain Lungs diminished at the bases otherwise adequate air movement sats are documented 95% on 4 L Heart S1-S2 audible and irregular monitor monitor showing atrial fibrillation rate controlled denying chest pain Abdomen soft nontender not distended no reports of nausea vomiting Extremities left great toe red tender swollen right foot unremarkable no calf tenderness - Labs CBC & Chem 7: 01/05/17 05:50 01/10/17 07:21 Labs: Abnormal Lab Results - Last 24 Hours (Table) 01/09/17 01/09/17 01/10/17 Range/Units 16:32 20:56 05:37 PT (9.0-12.0) sec Sodium (137-145) mmol/L Chloride (98-107) mmol/L Carbon Dioxide (22-30) mmol/L BUN (9-20) mg/dL Creatinine (0.66-1.25) mg/dL POC Glucose (mg/dL) 119 H 129 H 118 H (75-99) mg/dL 01/10/17 01/10/17 01/10/17 Range/Units 07:21 07:23 11:37 PT 13.0 H (9.0-12.0) sec Sodium 134 L (137-145) mmol/L Chloride 88 L (98-107) mmol/L Carbon Dioxide 35 H (22-30) mmol/L BUN 92 H* (9-20) mg/dL Creatinine 2.70 H (0.66-1.25) mg/dL POC Glucose (mg/dL) 167 H (75-99) mg/dL Microbiology - Last 24 Hours (Table) 01/03/17 14:00 Blood Culture - Final Blood No Growth after 144 hours Assessment and Plan Plan: Impression Present on admission shortness of breath exertional dyspnea due to an acute exacerbation of decompensated systolic heart failure EF less than 20 Chronic hypoxic respiratory failure O2 dependent 4 L [id number] at home Current every day smoker active Hypertension Debility Hyperlipidemia History of Paroxysmal atrial fibrillation maintaining sinus on anticoagulation Coumadin Episode of nonsustained V. tach Metabolic alkalosis secondary to diuretics induced volume contraction Nonoliguric acute kidney injury secondary to cardiorenal syndrome. Creatinine 2.6 on January 09 suspect due to diuresis New-onset suspect gout to the left great toe in a patient with a history of gout Plan Continue recommendations by cardiology service Monitor intake and output and daily weights Reinforce smoking cessation information to be provided Resume home meds as appropriate Monitor blood pressure and heart rate address as indicated Monitor electrolytes Continue entresto as ordered per cardiology Or start IV Solu-Medrol 60 every 8 hours for 3 doses for gout cannot take colchicine The above impression and plan of care have been discussed and directed by signing physician. Kelin Catalan nurse practitioner acting as scribe for signing physician.
--- NOTE | 2017-01-10 13:52 | P.DS ---
Providers Date of admission: 01/03/17 17:11 Attending physician: Leon Clarke Consults: 01/03/17 17:11 Consult Physician Routine Consulting Provider: Nesha Osborne Consult Reason/Comments: chf Do you want consulting provider notified?: Yes 01/06/17 11:52 Consult Physician Urgent Consulting Provider: Inez Maxwell Consult Reason/Comments: Worsening renal status Do you want consulting provider notified?: Yes Primary care physician: Juan Myers Patient Condition at Discharge: Fair Plan - Discharge Summary New Discharge Prescriptions: New Sacubitril/Valsartan [Entresto 24 mg-26 mg Tablet] 1 each PO BID #60 tab Continue Tiotropium 18 Mcg/Puff [Spiriva] 1 cap INHALATION RT-DAILY Fluticasone/Salmeterol [Advair 250-50 Diskus] 1 puff INHALATION RT-BID Warfarin Sodium [Coumadin] 4 mg PO HS Aspirin EC [Ecotrin] 325 mg PO DAILY metFORMIN HCL [Metformin HCl] 1,000 mg PO BID Tamsulosin HCl [Flomax] 0.4 mg PO DAILY Rosuvastatin [Crestor] 10 mg PO HS Furosemide [Lasix] 40 mg PO BID Carvedilol [Coreg] 3.125 mg PO BID Ipratropium-Albuterol Nebulize [Duoneb 0.5 mg-3 mg/3 ml Soln] 3 ml INHALATION RT-Q4H Ferrous Gluconate 27mg 27 mg PO DAILY Discontinued Celecoxib [CeleBREX] 200 mg PO DAILY Discharge Medication List Aspirin EC [Ecotrin] 325 mg PO DAILY 01/03/17 [History] Carvedilol [Coreg] 3.125 mg PO BID 01/03/17 [History] Ferrous Gluconate 27mg 27 mg PO DAILY 01/03/17 [History] Fluticasone/Salmeterol [Advair 250-50 Diskus] 1 puff INHALATION RT-BID 01/03/17 [History] Furosemide [Lasix] 40 mg PO BID 01/03/17 [History] Ipratropium-Albuterol Nebulize [Duoneb 0.5 mg-3 mg/3 ml Soln] 3 ml INHALATION RT -Q4H 01/03/17 [History] Rosuvastatin [Crestor] 10 mg PO HS 01/03/17 [History] Tamsulosin HCl [Flomax] 0.4 mg PO DAILY 01/03/17 [History] Tiotropium 18 Mcg/Puff [Spiriva] 1 cap INHALATION RT-DAILY 01/03/17 [History] Warfarin Sodium [Coumadin] 4 mg PO HS 01/03/17 [History] metFORMIN HCL [Metformin HCl] 1,000 mg PO BID 01/03/17 [History] Sacubitril/Valsartan [Entresto 24 mg-26 mg Tablet] 1 each PO BID #60 tab [Rx] Follow up Appointment(s)/Referral(s): [facility], [NON-STAFF] - Nonstaff,Physician [REFERRING] - 1-2 days Jhony De Los Santos DO [STAFF PHYSICIAN] - 2 Weeks Activity/Diet/Wound Care/Special Instructions: *supervisor operations Entresto from [facility] at time of discharge*
[2017-01-10] MEDS: methylPREDNISolone SOD SUCCI 125 MG/2 ML VIAL IV SCH ×3 (14:35→23:19)
--- NOTE | 2017-01-10 15:55 | P.PN ---
Subjective Principal diagnosis: Congestive Heart Failure This is a pleasant 66-year-old gentleman who is being treated for congestive heart failure and renal failure. Patient is feeling well today, blood pressure remains low. Renal function is elevated further today with a BUN of 92 and creatinine 2.7. Lasix has been on hold for 2 days. He is breathing better and denies complaints of dizziness, lightheadedness or syncope. Objective - Vital Signs Vital signs: Vital Signs Temp 97.6 F 01/10/17 12:00 Pulse 84 01/10/17 13:26 Resp 16 01/10/17 13:26 BP 89/59 01/10/17 12:00 Pulse Ox 100 01/10/17 12:00 Intake & Output 01/09/17 01/10/17 01/10/17 18:59 06:59 18:59 Intake Total 1560 610 Output Total 775 300 Balance 1560 -775 310 Weight 94.3 kg 96.7 kg Intake: IV 600 10 0.9 Normal Saline 600 IV Flush 10 Intake, IV Titration 600 Amount Sodium Chloride 0.9% 1, 600 000 ml @ 75 mls/hr IV . [id number] [facility] Rx#:[id number] Oral 960 Output: Urine 775 300 Other: Voiding Method Toilet Urinal # Voids 1 - Exam PHYSICAL EXAMINATION: HEENT: Head is atraumatic, normocephalic. Pupils equal, round. Neck is supple. There is no elevated jugular venous pressure. HEART EXAMINATION: Heart sounds irregularly irregular, S1 and S2 normal. No murmur or gallop heard. CHEST EXAMINATION: Lungs reveal faint crackles bilateral bases. No chest wall tenderness is noted on palpation or with deep breathing. ABDOMEN: Soft, nontender. Bowel sounds are heard. No organomegaly noted. EXTREMITIES: 2+ peripheral pulses with evidence of mild peripheral edema and no calf tenderness noted. NEUROLOGIC patient is awake, alert and oriented x3. . - Labs CBC & Chem 7: 01/05/17 05:50 01/10/17 07:21 Labs: Abnormal Lab Results - Last 24 Hours (Table) 01/09/17 01/09/17 01/10/17 Range/Units 16:32 20:56 05:37 PT (9.0-12.0) sec Sodium (137-145) mmol/L Chloride (98-107) mmol/L Carbon Dioxide (22-30) mmol/L BUN (9-20) mg/dL Creatinine (0.66-1.25) mg/dL POC Glucose (mg/dL) 119 H 129 H 118 H (75-99) mg/dL 01/10/17 01/10/17 01/10/17 Range/Units 07:21 07:23 11:37 PT 13.0 H (9.0-12.0) sec Sodium 134 L (137-145) mmol/L Chloride 88 L (98-107) mmol/L Carbon Dioxide 35 H (22-30) mmol/L BUN 92 H* (9-20) mg/dL Creatinine 2.70 H (0.66-1.25) mg/dL POC Glucose (mg/dL) 167 H (75-99) mg/dL Microbiology - Last 24 Hours (Table) 01/03/17 14:00 Blood Culture - Final Blood No Growth after 144 hours Assessment and Plan Plan: Assessment and plan #1 acute on chronic systolic congestive heart failure #2 hypertension, currently hypotensive #3 diabetes #4 hyperlipidemia #5 chronic atrial fibrillation #6 acute on chronic renal failure From cardiac standpoint, we will hold Aldactone for now. Continue Entresto. Continue 0.9 normal saline at 75 mL an hour. Monitor the patient's renal function. Further recommendations to follow. SOCIAL WORKER PALLIATIVE CARE note has been reviewed, I agree with a documented findings and plan of care. Patient was seen and examined.
[2017-01-10 17:21] LABS: Glucose,Whole Blood 137 mg/dL (75-99)
[2017-01-10] MEDS: INSULIN LISPRO (humaLOG) 300 UNIT/3 ML VIAL SQ SCH ×2 (18:55→21:43)
[2017-01-10 19:50] LABS: Hemoglobin A1C 5.4 % (4.2-6.1)
[2017-01-10] MEDS: FAMOTIDINE 20 MG TAB PO SCH (19:56)
[2017-01-10] MEDS: ATORVASTATIN 40 MG TAB PO SCH (19:56)
[2017-01-10] MEDS: WARFARIN 2 MG TAB PO SCH (19:57)
[2017-01-10 21:02] LABS: Glucose,Whole Blood 239 mg/dL (75-99)
[2017-01-11] MEDS: IPRATROPIUM-ALBUTEROL 3 ML NEB INHALATION PRN ×2 (00:06→23:05)
[2017-01-11] MEDS: SODIUM CHLORIDE 0.9% 1,000 ML IV SCH (03:16)
[2017-01-11 05:54] LABS: Glucose,Whole Blood 220 mg/dL (75-99)
[2017-01-11] MEDS: INSULIN LISPRO (humaLOG) 300 UNIT/3 ML VIAL SQ SCH ×4 (05:58→20:41)
[2017-01-11] MEDS: methylPREDNISolone SOD SUCCI 125 MG/2 ML VIAL IV SCH (05:58)
[2017-01-11 06:37] LABS: Calcium 8.3 mg/dL (8.4-10.2)
[2017-01-11] MEDS: CARVEDILOL 3.125 MG TAB PO SCH ×2 (06:38→17:22)
[2017-01-11] MEDS: MIDODRINE 5 MG TAB PO PRN (06:38)
[2017-01-11] MEDS: IPRATROPIUM-ALBUTEROL 3 ML NEB INHALATION SCH ×4 (07:06→20:20)
[2017-01-11] MEDS: SYMBICORT 80-4.5 MCG INHALER INHALATION SCH ×2 (07:06→20:20)
[2017-01-11] MEDS: TIOTROPIUM 18 MCG/PUFF INHALER INHALATION SCH (07:06)
--- NOTE | 2017-01-11 08:00 | PN ---
This patient is admitted with acute congestive heart failure. He is feeling better. His breathing is improved. His weight is down by one more kilogram. Patient is feeling better. Swelling in the legs is improved. Blood pressure is 94/60 mmHg. First and second heart sounds are normal. Lungs are clinically clear to auscultation and percussion. Chest x-ray shows improvement in the congestive cardiac failure. Patient's creatinine is 2.2. IV Lasix drip is discontinued. We will start the patient on oral Lasix and discontinue Zaroxolyn. We will follow patient's BUN and creatinine. Patient had a cardiac catheterization done about 2 or 3 years ago. No significant coronary artery disease was detected. So patient most likely has a nonischemic cardiomyopathy. We will get the results of the cardiac catheterization and then follow up as outpatient and we will consider AICD as an outpatient. MARYD
--- NOTE | 2017-01-11 08:27 | P.PN ---
Subjective Patient is seen for follow-up for acute kidney injury. He has underlying systolic heart failure with ejection fraction of 20% he also has pulmonary hypertension. Patient states he is feeling fairly well. He had been on dobutamine which is now discontinued IV fluids are running at 70 mL an hour. Patient has been eating and drinking well. He is complaining of swelling in his legs. Serum creatinine is at 2.3 from 2.7 yesterday. Objective - Vital Signs Vital signs: Vital Signs Temp 97.3 F L 01/11/17 03:56 Pulse 80 01/11/17 07:18 Resp 16 01/11/17 03:56 BP 84/51 01/11/17 03:56 Pulse Ox 96 01/11/17 07:08 Intake & Output 01/10/17 01/11/17 01/11/17 18:59 06:59 18:59 Intake Total 610 360 Output Total 300 740 Balance 310 -380 Weight 96.8 kg Intake: IV 10 IV Flush 10 Intake, IV Titration 600 Amount Sodium Chloride 0.9% 1, 600 000 ml @ 75 mls/hr IV . [id number] [facility] Rx#:[id number] Oral 360 Output: Urine 300 740 Other: Voiding Method Toilet Urinal # Voids 1 1 - Exam On examination patient is comfortable awake alert oriented 3. Not in any acute distress. Blood pressure is 84/51 heart rate 76/m. Patient is afebrile Brusly examination of the heart S1 and S2 Examination lungs bilateral breath sounds are heard good air entry bilaterally no crackles or wheezing is heard Abdomen is soft obese nontender Examination lower extremities shows trace edema mainly in the ankles. DIRECTOR OF CATH LAB exam is grossly intact - Labs CBC & Chem 7: 01/05/17 05:50 01/11/17 05:43 Labs: Abnormal Lab Results - Last 24 Hours (Table) 01/10/17 01/10/17 01/10/17 Range/Units 11:37 17:10 21:01 Sodium (137-145) mmol/L Chloride (98-107) mmol/L Carbon Dioxide (22-30) mmol/L BUN (9-20) mg/dL Creatinine (0.66-1.25) mg/dL Glucose (74-99) mg/dL POC Glucose (mg/dL) 167 H 137 H 239 H (75-99) mg/dL Calcium (8.4-10.2) mg/dL 01/11/17 01/11/17 Range/Units 05:43 05:52 Sodium 131 L (137-145) mmol/L Chloride 90 L (98-107) mmol/L Carbon Dioxide 31 H (22-30) mmol/L BUN 86 H* (9-20) mg/dL Creatinine 2.36 H (0.66-1.25) mg/dL Glucose 184 H (74-99) mg/dL POC Glucose (mg/dL) 220 H (75-99) mg/dL Calcium 8.3 L (8.4-10.2) mg/dL Assessment and Plan Plan: Assessment 1. Acute kidney injury, cardiorenal. Currently off of dobutamine. Lasix is at 40 mg by mouth twice a day. Patient is maintained on IV fluids which I will discontinue since he has been eating fairly well. He is also complaining of swelling in his lower extremities. 2. Severe cardiomyopathy with EF of 20% status post IV dobutamine. 3. Metabolic alkalosis secondary to diuresis and volume contraction currently improved 4. Volume overload currently improved DC IV fluids. Plan DC IV fluids and encourage increased oral intake may continue with the midodrine. Repeat labs in a.m.
[2017-01-11] MEDS: FERROUS SULFATE 325 MG TAB PO SCH (09:20)
[2017-01-11] MEDS: traMADol 50 MG TAB PO SCH ×2 (09:21→20:45)
[2017-01-11] MEDS: FUROSEMIDE 40 MG TAB PO SCH ×2 (09:21→17:22)
[2017-01-11] MEDS: TAMSULOSIN 0.4 MG CAP.ER.24H PO SCH (09:21)
[2017-01-11] MEDS: SACUBITRIL/VALSARTAN 24 MG-26 MG TABLET PO SCH ×2 (09:21→20:41)
--- NOTE | 2017-01-11 12:05 | P.PN ---
Subjective Principal diagnosis: Congestive heart failure as gained 6 pounds overnight off the dopamine drip Hopefully would discharge him home tomorrow and only takes 4 L oxygen at home will reassess his medications for hypotension today cardiac medications and possibly discharge home in the morning IV fluids and Hep-Lock IV Cytomel goes to decreased to 40 mg every 8 hours medications will be adjusted by renal physicians and cardiologists Objective - Vital Signs Vital signs: Vital Signs Temp 97.2 F L 01/11/17 08:00 Pulse 84 01/11/17 11:27 Resp 16 01/11/17 08:00 BP 91/69 01/11/17 08:00 Pulse Ox 98 01/11/17 08:00 Intake & Output 01/10/17 01/11/17 01/11/17 18:59 06:59 18:59 Intake Total 610 360 Output Total 300 740 Balance 310 -380 Weight 96.8 kg Intake: IV 10 IV Flush 10 Intake, IV Titration 600 Amount Sodium Chloride 0.9% 1, 600 000 ml @ 75 mls/hr IV . [id number] [facility] Rx#:[id number] Oral 360 Output: Urine 300 740 Other: Voiding Method Toilet Urinal # Voids 1 1 - Labs CBC & Chem 7: 01/05/17 05:50 01/11/17 05:43 Labs: Abnormal Lab Results - Last 24 Hours (Table) 01/10/17 01/10/17 01/11/17 Range/Units 17:10 21:01 05:43 Sodium 131 L (137-145) mmol/L Chloride 90 L (98-107) mmol/L Carbon Dioxide 31 H (22-30) mmol/L BUN 86 H* (9-20) mg/dL Creatinine 2.36 H (0.66-1.25) mg/dL Glucose 184 H (74-99) mg/dL POC Glucose (mg/dL) 137 H 239 H (75-99) mg/dL Calcium 8.3 L (8.4-10.2) mg/dL 01/11/17 Range/Units 05:52 Sodium (137-145) mmol/L Chloride (98-107) mmol/L Carbon Dioxide (22-30) mmol/L BUN (9-20) mg/dL Creatinine (0.66-1.25) mg/dL Glucose (74-99) mg/dL POC Glucose (mg/dL) 220 H (75-99) mg/dL Calcium (8.4-10.2) mg/dL
[2017-01-11 12:09] LABS: Glucose,Whole Blood 203 mg/dL (75-99)
--- NOTE | 2017-01-11 12:59 | P.PN ---
Subjective Principal diagnosis: Congestive Heart Failure This is a pleasant 66-year-old gentleman who is being treated for congestive heart failure and renal failure. Patient is feeling well today, blood pressure remains low. Renal function is today with a BUN of 86 and creatinine 2.36. By mouth Lasix has been resumed, his Aldactone remains on hold. His breathing is stable and denies complaints of dizziness, lightheadedness or syncope. Patient' s low blood pressure is asymptomatic. Objective - Vital Signs Vital signs: Vital Signs Temp 97.2 F L 01/11/17 08:00 Pulse 81 01/11/17 12:00 Resp 18 01/11/17 12:00 BP 104/76 01/11/17 12:00 Pulse Ox 98 01/11/17 12:00 Intake & Output 01/10/17 01/11/17 01/11/17 18:59 06:59 18:59 Intake Total 610 360 Output Total 300 740 Balance 310 -380 Weight 96.8 kg Intake: IV 10 IV Flush 10 Intake, IV Titration 600 Amount Sodium Chloride 0.9% 1, 600 000 ml @ 75 mls/hr IV . [id number] [facility] Rx#:[id number] Oral 360 Output: Urine 300 740 Other: Voiding Method Toilet Urinal # Voids 1 1 2 - Exam PHYSICAL EXAMINATION: HEENT: Head is atraumatic, normocephalic. Pupils equal, round. Neck is supple. There is no elevated jugular venous pressure. HEART EXAMINATION: Heart sounds irregularly irregular, S1 and S2 normal. No murmur or gallop heard. CHEST EXAMINATION: Lungs reveal faint crackles bilateral bases. No chest wall tenderness is noted on palpation or with deep breathing. ABDOMEN: Soft, nontender. Bowel sounds are heard. No organomegaly noted. EXTREMITIES: 2+ peripheral pulses with evidence of trace peripheral edema and no calf tenderness noted. NEUROLOGIC patient is awake, alert and oriented x3. . - Labs CBC & Chem 7: 01/05/17 05:50 01/11/17 05:43 Labs: Abnormal Lab Results - Last 24 Hours (Table) 01/10/17 01/10/17 01/11/17 Range/Units 17:10 21:01 05:43 Sodium 131 L (137-145) mmol/L Chloride 90 L (98-107) mmol/L Carbon Dioxide 31 H (22-30) mmol/L BUN 86 H* (9-20) mg/dL Creatinine 2.36 H (0.66-1.25) mg/dL Glucose 184 H (74-99) mg/dL POC Glucose (mg/dL) 137 H 239 H (75-99) mg/dL Calcium 8.3 L (8.4-10.2) mg/dL 01/11/17 01/11/17 Range/Units 05:52 11:52 Sodium (137-145) mmol/L Chloride (98-107) mmol/L Carbon Dioxide (22-30) mmol/L BUN (9-20) mg/dL Creatinine (0.66-1.25) mg/dL Glucose (74-99) mg/dL POC Glucose (mg/dL) 220 H 203 H (75-99) mg/dL Calcium (8.4-10.2) mg/dL Assessment and Plan Plan: Assessment and plan #1 acute on chronic systolic congestive heart failure #2 hypertension, currently hypotensive #3 diabetes #4 hyperlipidemia #5 chronic atrial fibrillation #6 acute on chronic renal failure From cardiac standpoint, continue to hold Aldactone. Continue Entresto. Monitor the patient's renal function. Further recommendations to follow. LEAD BUSINESS ANALYST note has been reviewed, I agree with a documented findings and plan of care. Patient was seen and examined.
[2017-01-11] MEDS: methylPREDNISolone SOD SUCCI 40 MG/ML 1 ML VIAL IV SCH ×2 (17:22→23:52)
[2017-01-11 17:25] LABS: Glucose,Whole Blood 212 mg/dL (75-99)
[2017-01-11 20:27] LABS: Glucose,Whole Blood 245 mg/dL (75-99)
[2017-01-11] MEDS: FAMOTIDINE 20 MG TAB PO SCH (20:41)
[2017-01-11] MEDS: ATORVASTATIN 40 MG TAB PO SCH (20:41)
[2017-01-11] MEDS: WARFARIN 2 MG TAB PO SCH (20:41)
[2017-01-12 06:04] LABS: Glucose,Whole Blood 214 mg/dL (75-99)
[2017-01-12] MEDS: CARVEDILOL 3.125 MG TAB PO SCH ×2 (06:10→16:38)
[2017-01-12] MEDS: INSULIN LISPRO (humaLOG) 300 UNIT/3 ML VIAL SQ SCH ×4 (06:10→20:42)
[2017-01-12 07:11] LABS: Basophils % (A) 0 %; CH 31.9; CHCM 32.9; Eosinophils % (A) 0 %; HCT 29.2 % (39.0-53.0); HDW 2.34; HGB 9.7 gm/dL (13.0-17.5); Luc # (Auto) 0.05; Luc % (Auto) 1; Lymphocytes # (A) 0.2 k/uL (1.0-4.8); Lymphocytes % (A) 2 %; MCH 32.2 pg (25.0-35.0); MCHC 33.1 g/dL (31.0-37.0); Mean Platelet Volume 7.6; Monocytes # (A) 0.3 k/uL (0-1.0); Monocytes % (A) 4 %; Neutrophils # (A) 6.2 k/uL (1.3-7.7); Neutrophils % (A) 92 %; RBC 2.99 m/uL (4.30-5.90); RDW 14.6 % (11.5-15.5); WBC 6.8 k/uL (3.8-10.6); WBC (Perox) 6.94
[2017-01-12 07:14] LABS: INR 1.4 (<1.1); Prothrombin Time 13.6 sec (9.0-12.0)
[2017-01-12 07:16] LABS: MCV 97.5 fL (80.0-100.0)
[2017-01-12 07:19] LABS: Potassium 4.8 mmol/L (3.5-5.1); Total Bilirubin 0.5 mg/dL (0.2-1.3); Total Protein 6.1 g/dL (6.3-8.2)
[2017-01-12] MEDS: methylPREDNISolone SOD SUCCI 40 MG/ML 1 ML VIAL IV SCH (07:57)
[2017-01-12] MEDS: SACUBITRIL/VALSARTAN 24 MG-26 MG TABLET PO SCH ×2 (07:57→20:42)
[2017-01-12] MEDS: TAMSULOSIN 0.4 MG CAP.ER.24H PO SCH (07:57)
[2017-01-12] MEDS: FERROUS SULFATE 325 MG TAB PO SCH (07:57)
[2017-01-12] MEDS: traMADol 50 MG TAB PO SCH ×2 (08:00→20:42)
[2017-01-12] MEDS: FUROSEMIDE 40 MG TAB PO SCH ×2 (08:04→16:38)
[2017-01-12] MEDS ORDERED: FUROSEMIDE 10 MG/ML 10 ML VIAL IV STA (08:21)
--- NOTE | 2017-01-12 08:21 | P.PN ---
Subjective Patient is seen for follow-up for acute kidney injury. He has underlying systolic heart failure with ejection fraction of 20% he also has pulmonary hypertension. Patient states he is feeling fairly well. He had been on dobutamine which is now discontinued IV fluids were running at 70 mL an hour. Patient has been eating and drinking well. He is complaining of swelling in his legs. Serum creatinine is at 2.3 from 2.7 yesterday. IV fluids were discontinued yesterday. This morning patient states his mildly more short of breath. He is also put on about 2 pounds Objective - Vital Signs Vital signs: Vital Signs Temp 97.7 F 01/12/17 04:00 Pulse 92 01/12/17 04:00 Resp 18 01/12/17 04:00 BP 116/75 01/12/17 04:00 Pulse Ox 97 01/12/17 04:00 Intake & Output 01/11/17 01/12/17 01/12/17 18:59 06:59 18:59 Output Total 1255 Balance -1255 Weight 98.7 kg Output: Urine 1255 Other: Voiding Method Toilet Urinal # Voids 2 1 - Exam On examination patient is sitting up in bed he is comfortable he is awake alert oriented 3. He is not in any acute distress. Blood pressure 116/75 heart rate 92/m he is afebrile Examination of the heart S1 and S2 Exam shows lungs bilateral breath sounds are heard decreased breath sounds in the bases minimal basal crackles are heard bilaterally Abdomen is soft nontender Examination lower extremity shows no evidence of edema MANPOWER DEVELOPMENT SPECIALIST exam is grossly intact patient is moving all 4 extremities. - Labs CBC & Chem 7: 01/12/17 05:52 01/12/17 05:52 Labs: Abnormal Lab Results - Last 24 Hours (Table) 01/11/17 01/11/17 01/11/17 Range/Units 11:52 17:07 20:26 RBC (4.30-5.90) m/uL Hgb (13.0-17.5) gm/dL Hct (39.0-53.0) % Plt Count (150-450) k/uL Lymphocytes # (1.0-4.8) k/uL PT (9.0-12.0) sec Sodium (137-145) mmol/L Chloride (98-107) mmol/L Carbon Dioxide (22-30) mmol/L BUN (9-20) mg/dL Creatinine (0.66-1.25) mg/dL Glucose (74-99) mg/dL POC Glucose (mg/dL) 203 H 212 H 245 H (75-99) mg/dL Total Protein (6.3-8.2) g/dL 01/12/17 01/12/17 01/12/17 Range/Units 05:52 05:52 05:52 RBC 2.99 L (4.30-5.90) m/uL Hgb 9.7 L (13.0-17.5) gm/dL Hct 29.2 L (39.0-53.0) % Plt Count 134 L (150-450) k/uL Lymphocytes # 0.2 L (1.0-4.8) k/uL PT 13.6 H (9.0-12.0) sec Sodium 133 L (137-145) mmol/L Chloride 90 L (98-107) mmol/L Carbon Dioxide 34 H (22-30) mmol/L BUN 73 H (9-20) mg/dL Creatinine 1.83 H (0.66-1.25) mg/dL Glucose 186 H (74-99) mg/dL POC Glucose (mg/dL) (75-99) mg/dL Total Protein 6.1 L (6.3-8.2) g/dL 01/12/17 Range/Units 06:03 RBC (4.30-5.90) m/uL Hgb (13.0-17.5) gm/dL Hct (39.0-53.0) % Plt Count (150-450) k/uL Lymphocytes # (1.0-4.8) k/uL PT (9.0-12.0) sec Sodium (137-145) mmol/L Chloride (98-107) mmol/L Carbon Dioxide (22-30) mmol/L BUN (9-20) mg/dL Creatinine (0.66-1.25) mg/dL Glucose (74-99) mg/dL POC Glucose (mg/dL) 214 H (75-99) mg/dL Total Protein (6.3-8.2) g/dL Assessment and Plan Plan: Assessment 1. Acute kidney injury, cardiorenal. Currently off of dobutamine. Lasix is at 40 mg by mouth twice a day. Patient was maintained on IV fluids which was discontinued yesterday He is also complaining of swelling in his lower extremities. Weight is up by about 2 pounds since yesterday. 2. Severe cardiomyopathy with EF of 20% status post IV dobutamine. 3. Metabolic alkalosis secondary to diuresis and volume contraction currently improved 4. Volume overload, improved since admission but perhaps slightly worse since yesterday Plan Lasix IV 1 today. Recommend to hold discharge for 1 more day and reassess volume status tomorrow prior to discharge and adjust dose of diuretics.
[2017-01-12] MEDS: SYMBICORT 80-4.5 MCG INHALER INHALATION SCH ×2 (08:32→19:40)
[2017-01-12] MEDS: TIOTROPIUM 18 MCG/PUFF INHALER INHALATION SCH (08:32)
[2017-01-12] MEDS: IPRATROPIUM-ALBUTEROL 3 ML NEB INHALATION SCH ×4 (08:32→19:40)
--- NOTE | 2017-01-12 09:53 | P.PN ---
Subjective Principal diagnosis: Congestive heart failure as gained 6 pounds overnight off the dopamine drip Hopefully would discharge him home tomorrow and only takes 4 L oxygen at home will reassess his medications for hypotension today cardiac medications and possibly discharge home in the morning IV fluids and Hep-Lock IV Cytomel goes to decreased to 40 mg every 8 hours medications will be adjusted by renal physicians and cardiologists Objective - Vital Signs Vital signs: Vital Signs Temp 97.7 F 01/12/17 04:00 Pulse 92 01/12/17 08:33 Resp 18 01/12/17 04:00 BP 116/75 01/12/17 04:00 Pulse Ox 97 01/12/17 04:00 Intake & Output 01/11/17 01/12/17 01/12/17 18:59 06:59 18:59 Output Total 1255 Balance -1255 Weight 98.7 kg Output: Urine 1255 Other: Voiding Method Toilet Urinal # Voids 2 1 - Constitutional General appearance: Present: average body habitus - EENT Eyes: Present: anicteric sclerae ENT: Present: hearing grossly normal - Respiratory Respiratory: bilateral: diminished, rales - Cardiovascular Heart sounds: normal: S1, S2 - Gastrointestinal General gastrointestinal: Present: normal bowel sounds - Integumentary Integumentary: Present: normal - Neurologic Neurologic: Present: CNII-XII intact - Musculoskeletal Musculoskeletal: Present: generalized weakness - Labs CBC & Chem 7: 01/12/17 05:52 01/12/17 05:52 Labs: Abnormal Lab Results - Last 24 Hours (Table) 01/11/17 01/11/17 01/11/17 Range/Units 11:52 17:07 20:26 RBC (4.30-5.90) m/uL Hgb (13.0-17.5) gm/dL Hct (39.0-53.0) % Plt Count (150-450) k/uL Lymphocytes # (1.0-4.8) k/uL PT (9.0-12.0) sec Sodium (137-145) mmol/L Chloride (98-107) mmol/L Carbon Dioxide (22-30) mmol/L BUN (9-20) mg/dL Creatinine (0.66-1.25) mg/dL Glucose (74-99) mg/dL POC Glucose (mg/dL) 203 H 212 H 245 H (75-99) mg/dL Total Protein (6.3-8.2) g/dL 01/12/17 01/12/17 01/12/17 Range/Units 05:52 05:52 05:52 RBC 2.99 L (4.30-5.90) m/uL Hgb 9.7 L (13.0-17.5) gm/dL Hct 29.2 L (39.0-53.0) % Plt Count 134 L (150-450) k/uL Lymphocytes # 0.2 L (1.0-4.8) k/uL PT 13.6 H (9.0-12.0) sec Sodium 133 L (137-145) mmol/L Chloride 90 L (98-107) mmol/L Carbon Dioxide 34 H (22-30) mmol/L BUN 73 H (9-20) mg/dL Creatinine 1.83 H (0.66-1.25) mg/dL Glucose 186 H (74-99) mg/dL POC Glucose (mg/dL) (75-99) mg/dL Total Protein 6.1 L (6.3-8.2) g/dL 01/12/17 Range/Units 06:03 RBC (4.30-5.90) m/uL Hgb (13.0-17.5) gm/dL Hct (39.0-53.0) % Plt Count (150-450) k/uL Lymphocytes # (1.0-4.8) k/uL PT (9.0-12.0) sec Sodium (137-145) mmol/L Chloride (98-107) mmol/L Carbon Dioxide (22-30) mmol/L BUN (9-20) mg/dL Creatinine (0.66-1.25) mg/dL Glucose (74-99) mg/dL POC Glucose (mg/dL) 214 H (75-99) mg/dL Total Protein (6.3-8.2) g/dL Assessment and Plan Plan: IV Lasix 60 mg 1 today cardiology to assess hypertension medications continue to wean steroids of the IV home one to 2 days Time with Patient: Less than 30
[2017-01-12] MEDS: predniSONE 20 MG TAB PO SCH (10:42)
[2017-01-12 11:51] LABS: Glucose,Whole Blood 194 mg/dL (75-99)
[2017-01-12 16:34] LABS: Glucose,Whole Blood 211 mg/dL (75-99)
--- NOTE | 2017-01-12 16:51 | P.PN ---
Subjective Principal diagnosis: CHF and renal failure This patient is admitted with the findings of the CHF with ejection fraction about 20% and also acute kidney injury. Patient has received some IV fluids. Yesterday. It appears that patient has gained some fluid. His IV fluid is cut back and patient has received one dose of Lasix. Patient is going to be observed for next 24 hours. Possible discharge tomorrow. His creatinine is in the range of 2.3. Objective - Vital Signs Vital signs: Vital Signs Temp 97 F L 01/12/17 08:00 Pulse 88 01/12/17 15:39 Resp 16 01/12/17 08:00 BP 111/70 01/12/17 08:00 Pulse Ox 96 01/12/17 08:00 Intake & Output 01/11/17 01/12/17 01/12/17 18:59 06:59 18:59 Intake Total 240 Output Total 1255 1150 Balance -1255 -910 Weight 98.7 kg Intake: Oral 240 Output: Urine 1255 1150 Other: Voiding Method Toilet Urinal # Voids 2 1 - Labs CBC & Chem 7: 01/12/17 05:52 01/12/17 05:52 Labs: Abnormal Lab Results - Last 24 Hours (Table) 01/11/17 01/11/17 01/12/17 Range/Units 17:07 20:26 05:52 RBC 2.99 L (4.30-5.90) m/uL Hgb 9.7 L (13.0-17.5) gm/dL Hct 29.2 L (39.0-53.0) % Plt Count 134 L (150-450) k/uL Lymphocytes # 0.2 L (1.0-4.8) k/uL PT (9.0-12.0) sec Sodium (137-145) mmol/L Chloride (98-107) mmol/L Carbon Dioxide (22-30) mmol/L BUN (9-20) mg/dL Creatinine (0.66-1.25) mg/dL Glucose (74-99) mg/dL POC Glucose (mg/dL) 212 H 245 H (75-99) mg/dL Total Protein (6.3-8.2) g/dL 01/12/17 01/12/17 01/12/17 Range/Units 05:52 05:52 06:03 RBC (4.30-5.90) m/uL Hgb (13.0-17.5) gm/dL Hct (39.0-53.0) % Plt Count (150-450) k/uL Lymphocytes # (1.0-4.8) k/uL PT 13.6 H (9.0-12.0) sec Sodium 133 L (137-145) mmol/L Chloride 90 L (98-107) mmol/L Carbon Dioxide 34 H (22-30) mmol/L BUN 73 H (9-20) mg/dL Creatinine 1.83 H (0.66-1.25) mg/dL Glucose 186 H (74-99) mg/dL POC Glucose (mg/dL) 214 H (75-99) mg/dL Total Protein 6.1 L (6.3-8.2) g/dL 01/12/17 01/12/17 Range/Units 11:38 16:32 RBC (4.30-5.90) m/uL Hgb (13.0-17.5) gm/dL Hct (39.0-53.0) % Plt Count (150-450) k/uL Lymphocytes # (1.0-4.8) k/uL PT (9.0-12.0) sec Sodium (137-145) mmol/L Chloride (98-107) mmol/L Carbon Dioxide (22-30) mmol/L BUN (9-20) mg/dL Creatinine (0.66-1.25) mg/dL Glucose (74-99) mg/dL POC Glucose (mg/dL) 194 H 211 H (75-99) mg/dL Total Protein (6.3-8.2) g/dL Assessment and Plan (1) COPD (chronic obstructive pulmonary disease) Status: Acute (2) Chronic a-fib Status: Acute (3) Congestive heart failure Status: Acute (4) Diabetes Status: Acute (5) Elevated troponin Status: Acute Plan: Patient is seemed to be clinically stable. Patient developed a little more fluid overload. Head dose of Lasix was given today. His creatinine is 2.3. IV fluids are cut back. Possible discharge within next 24-48 hours
[2017-01-12 20:39] LABS: Glucose,Whole Blood 261 mg/dL (75-99)
[2017-01-12] MEDS: ATORVASTATIN 40 MG TAB PO SCH (20:41)
[2017-01-12] MEDS: WARFARIN 2 MG TAB PO SCH (20:41)
[2017-01-12] MEDS: FAMOTIDINE 20 MG TAB PO SCH (20:41)
[2017-01-12] MEDS: IPRATROPIUM-ALBUTEROL 3 ML NEB INHALATION PRN (23:25)
[2017-01-13 06:13] LABS: Glucose,Whole Blood 163 mg/dL (75-99)
[2017-01-13] MEDS: INSULIN LISPRO (humaLOG) 300 UNIT/3 ML VIAL SQ SCH ×4 (06:43→21:50)
[2017-01-13] MEDS: CARVEDILOL 3.125 MG TAB PO SCH ×2 (06:43→17:40)
[2017-01-13] MEDS: IPRATROPIUM-ALBUTEROL 3 ML NEB INHALATION SCH ×4 (07:52→19:39)
[2017-01-13] MEDS: TIOTROPIUM 18 MCG/PUFF INHALER INHALATION SCH (07:52)
[2017-01-13] MEDS: SYMBICORT 80-4.5 MCG INHALER INHALATION SCH ×2 (07:52→19:39)
[2017-01-13] MEDS: predniSONE 20 MG TAB PO SCH (08:14)
[2017-01-13] MEDS: TAMSULOSIN 0.4 MG CAP.ER.24H PO SCH (08:14)
[2017-01-13] MEDS: SACUBITRIL/VALSARTAN 24 MG-26 MG TABLET PO SCH ×2 (08:14→21:50)
[2017-01-13] MEDS: FUROSEMIDE 40 MG TAB PO SCH ×2 (08:15→15:56)
[2017-01-13] MEDS: FERROUS SULFATE 325 MG TAB PO SCH (08:15)
--- NOTE | 2017-01-13 08:36 | P.PN ---
Subjective Patient is seen in follow-up for acute kidney injury. Patient has systolic CHF with ejection fraction of less than 20% and moderate mitral regurgitation and pulmonary hypertension. Patient presented with dyspnea. He is currently maintained on Lasix 40 mg orally twice daily. He was also on dobutamine drip which has now been discontinued. Patient states his dyspnea as well as his edema is much improved since admission. No vomiting or diarrhea. Oral intake is good. Vital signs are stable. General: The patient appeared well nourished and normally developed. HEENT: Head exam is unremarkable. Neck is without jugular venous distension. LUNGS: Lungs are clear to auscultation and percussion. Breath sounds decreased. HEART: Rate and Rhythm are regular. First and second heart sounds normal. No murmurs, rubs or gallops. ABDOMEN: Abdominal exam reveals normal bowel sounds. Non-tender and non- distended. No evidence of peritonitis. EXTREMITITES: Trace edema. Objective - Vital Signs Vital signs: Vital Signs Temp 97.4 F L 01/13/17 08:00 Pulse 80 01/13/17 08:01 Resp 18 01/13/17 08:00 BP 87/54 01/13/17 08:00 Pulse Ox 97 01/13/17 08:00 Intake & Output 01/12/17 01/13/17 01/13/17 18:59 06:59 18:59 Intake Total 420 480 Output Total 1150 1490 800 Balance -730 -1490 -320 Weight 96 kg Intake: Oral 420 480 Output: Urine 1150 1490 800 Other: Voiding Method Urinal # Voids 1 2 # Bowel Movements 0 - Labs CBC & Chem 7: 01/12/17 05:52 01/12/17 05:52 Labs: Abnormal Lab Results - Last 24 Hours (Table) 01/12/17 01/12/17 01/12/17 Range/Units 11:38 16:32 20:37 POC Glucose (mg/dL) 194 H 211 H 261 H (75-99) mg/dL 01/13/17 Range/Units 06:12 POC Glucose (mg/dL) 163 H (75-99) mg/dL Assessment and Plan Plan: Assessment: #1. Nonoliguric acute kidney injury secondary to cardiorenal syndrome. Creatinine peaked at 2.6 and down to 1.83 as of yesterday. #2. Volume overload. Improved. #3. Systolic CHF with ejection fraction of less than 20% with moderate mitral regurgitation and pulmonary hypertension. #4. Rule out chronic kidney disease. Unclear as to what his baseline renal function is. Urinalysis noted to be benign. #5. Metabolic alkalosis secondary to diuretic induced volume contraction. Stable. Plan: Strict I's and O's and daily weights. Avoid nephrotoxic agents and hypotensive episodes. Repeat electrolytes in the morning. Midodrine 5 mg as needed for systolic blood pressure less than 90. I advised him to follow a low-salt and a 50 ounce fluid restricted diet. Stable to be discharged home on Lasix 40 mg orally twice daily. He is to weigh himself daily and to increase Lasix to 3 times a day for weight gain over 2-3 pounds. He will need to follow-up as an outpatient in the next 2 weeks.
--- NOTE | 2017-01-13 09:25 | P.PN ---
Subjective Principal diagnosis: Congestive heart failure as gained 6 pounds overnight off the dopamine drip Hopefully would discharge him home tomorrow and only takes 4 L oxygen at home will reassess his medications for hypotension today cardiac medications and possibly discharge home in the morning IV fluids and Hep-Lock IV Cytomel goes to decreased to 40 mg every 8 hours medications will be adjusted by renal physicians and cardiologists Objective - Vital Signs Vital signs: Vital Signs Temp 97.4 F L 01/13/17 08:00 Pulse 80 01/13/17 08:01 Resp 18 01/13/17 08:00 BP 87/54 01/13/17 08:00 Pulse Ox 97 01/13/17 08:00 Intake & Output 01/12/17 01/13/17 01/13/17 18:59 06:59 18:59 Intake Total 420 480 Output Total 1150 1490 800 Balance -730 -1490 -320 Weight 96 kg Intake: Oral 420 480 Output: Urine 1150 1490 800 Other: Voiding Method Urinal # Voids 1 2 # Bowel Movements 0 - Exam Physical exam 66-year-old male sitting up on the edge of the bed taking a diet this afternoon patient states "this is the best I have felt" Lungs diminished at the bases otherwise adequate air movement sats are documented 95% on 4 L Heart S1-S2 audible and irregular monitor A. fib rate controlled had an episode of a 6 beat nonsustained V. tach episode asymptomatic Abdomen soft nontender not distended no reports of nausea vomiting Extremities no edema noted to the bilateral lower extremities Left great toe red and swollen rating down radiating down to the mid foot on the left foot and at the right - Labs CBC & Chem 7: 01/12/17 05:52 01/12/17 05:52 Labs: Abnormal Lab Results - Last 24 Hours (Table) 01/12/17 01/12/17 01/12/17 Range/Units 11:38 16:32 20:37 POC Glucose (mg/dL) 194 H 211 H 261 H (75-99) mg/dL 01/13/17 Range/Units 06:12 POC Glucose (mg/dL) 163 H (75-99) mg/dL Assessment and Plan Plan: He had IV Hep-Lock is on an [facility] condition for systolic CHF his Lasix is 40 twice a day he requests to stay 1 more day to monitor his fluid intake and up increase his ambulation in and monitor the new medications without any IV fluid lumbar day before discharge we will hold him 1 more day as mentioned above and get discharge medications from renal and cardiology for tomorrow was discharged Time with Patient: Greater than 30
[2017-01-13] MEDS: traMADol 50 MG TAB PO SCH ×2 (11:42→21:52)
[2017-01-13 12:06] LABS: Glucose,Whole Blood 176 mg/dL (75-99)
--- NOTE | 2017-01-13 13:10 | P.PN ---
Subjective this patient has a sick cardiomyopathy. Patient had a cardiac catheterization about couple of years ago and he was told that he did not had any obstructive coronary artery disease. And have the records of his cardiac catheterization. Patient had a few runs of nonsustained ventricular tachycardia U of the patient' s severely impaired left ventricular systolic function we will discharge the patient on LifeVest. I'll unit him as outpatient for AICD placement patient's creatinine is now down to 1.7. We'll resume Aldactone 25 mg daily recommend to check the BMP once a week after the discharge. Objective - Vital Signs Vital signs: Vital Signs Temp 97.4 F L 01/13/17 08:00 Pulse 78 01/13/17 11:46 Resp 16 01/13/17 11:42 BP 102/64 01/13/17 11:42 Pulse Ox 98 01/13/17 11:42 Intake & Output 01/12/17 01/13/17 01/13/17 18:59 06:59 18:59 Intake Total 420 480 Output Total 1150 1490 800 Balance -730 -1490 -320 Weight 96 kg Intake: Oral 420 480 Output: Urine 1150 1490 800 Other: Voiding Method Urinal # Voids 1 2 # Bowel Movements 0 - Exam vital signs reviewed Heart first and second heart sounds are normal. Lungs are clinically clear to auscultation and percussion Leg edema absent. - Labs CBC & Chem 7: 01/12/17 05:52 01/12/17 05:52 Labs: Abnormal Lab Results - Last 24 Hours (Table) 01/12/17 01/12/17 01/13/17 Range/Units 16:32 20:37 06:12 POC Glucose (mg/dL) 211 H 261 H 163 H (75-99) mg/dL 01/13/17 Range/Units 12:01 POC Glucose (mg/dL) 176 H (75-99) mg/dL Assessment and Plan Plan: this patient is feeling well. He now functions is improved in view of the patient having a runs of nonsustained ventricular tachycardia we will discharge the patient on LifeVest. Check a BMP once a week.
[2017-01-13] MEDS: SPIRONOLACTONE 25 MG TAB PO SCH (15:56)
[2017-01-13 16:58] LABS: Glucose,Whole Blood 182 mg/dL (75-99)
[2017-01-13 20:31] LABS: Glucose,Whole Blood 331 mg/dL (75-99)
[2017-01-13] MEDS: ATORVASTATIN 40 MG TAB PO SCH (21:49)
[2017-01-13] MEDS: FAMOTIDINE 20 MG TAB PO SCH (21:49)
[2017-01-13] MEDS: WARFARIN 2 MG TAB PO SCH (21:50)
[2017-01-13] MEDS: IPRATROPIUM-ALBUTEROL 3 ML NEB INHALATION PRN (23:26)
[2017-01-14 05:39] LABS: Glucose,Whole Blood 118 mg/dL (75-99)
[2017-01-14 06:44] LABS: Basophils % (A) 0 %; CH 32.1; CHCM 33.2; Eosinophils % (A) 0 %; HCT 32.5 % (39.0-53.0); HDW 2.34; HGB 10.8 gm/dL (13.0-17.5); Luc % (Auto) 3; Lymphocytes # (A) 0.6 k/uL (1.0-4.8); Lymphocytes % (A) 8 %; MCH 32.3 pg (25.0-35.0); MCHC 33.3 g/dL (31.0-37.0); MCV 97.1 fL (80.0-100.0); Mean Platelet Volume 7.6; Monocytes # (A) 1.1 k/uL (0-1.0); Monocytes % (A) 14 %; Neutrophils # (A) 5.7 k/uL (1.3-7.7); Neutrophils % (A) 75 %; RBC 3.34 m/uL (4.30-5.90); RDW 14.5 % (11.5-15.5); WBC 7.6 k/uL (3.8-10.6); WBC (Perox) 7.88
[2017-01-14 06:45] LABS: Calcium 8.8 mg/dL (8.4-10.2); Potassium 4.5 mmol/L (3.5-5.1); Total Bilirubin 0.6 mg/dL (0.2-1.3); Total Protein 5.8 g/dL (6.3-8.2)
[2017-01-14] MEDS: CARVEDILOL 3.125 MG TAB PO SCH ×2 (06:49→17:31)
[2017-01-14 06:51] LABS: INR 1.3 (<1.1); Prothrombin Time 13.2 sec (9.0-12.0)
[2017-01-14] MEDS: INSULIN LISPRO (humaLOG) 300 UNIT/3 ML VIAL SQ SCH ×4 (06:53→21:09)
[2017-01-14] MEDS: IPRATROPIUM-ALBUTEROL 3 ML NEB INHALATION SCH ×4 (07:32→19:29)
[2017-01-14] MEDS: SYMBICORT 80-4.5 MCG INHALER INHALATION SCH ×2 (07:32→19:29)
[2017-01-14] MEDS: TIOTROPIUM 18 MCG/PUFF INHALER INHALATION SCH (07:32)
[2017-01-14] MEDS: traMADol 50 MG TAB PO SCH ×2 (08:13→21:09)
[2017-01-14] MEDS: SPIRONOLACTONE 25 MG TAB PO SCH (08:13)
[2017-01-14] MEDS: TAMSULOSIN 0.4 MG CAP.ER.24H PO SCH (08:13)
[2017-01-14] MEDS: predniSONE 20 MG TAB PO SCH (08:13)
[2017-01-14] MEDS: SACUBITRIL/VALSARTAN 24 MG-26 MG TABLET PO SCH ×2 (08:13→21:09)
[2017-01-14] MEDS: FERROUS SULFATE 325 MG TAB PO SCH (08:13)
[2017-01-14] MEDS: FUROSEMIDE 40 MG TAB PO SCH ×2 (08:13→16:01)
--- NOTE | 2017-01-14 08:14 | P.PN ---
Subjective Patient is seen in follow-up for acute kidney injury. Patient has systolic CHF with ejection fraction of less than 20% and moderate mitral regurgitation and pulmonary hypertension. Patient presented with dyspnea. He is currently maintained on Lasix 40 mg orally twice daily. He was also on dobutamine drip which has now been discontinued. Patient states his dyspnea as well as his edema is much improved since admission. No vomiting or diarrhea. Oral intake is good. Weight is trending down. Vital signs are stable. General: The patient appeared well nourished and normally developed. HEENT: Head exam is unremarkable. Neck is without jugular venous distension. LUNGS: Lungs are clear to auscultation and percussion. Breath sounds decreased. HEART: Rate and Rhythm are regular. First and second heart sounds normal. No murmurs, rubs or gallops. ABDOMEN: Abdominal exam reveals normal bowel sounds. Non-tender and non- distended. No evidence of peritonitis. EXTREMITITES: Trace edema. Objective - Vital Signs Vital signs: Vital Signs Temp 97.1 F L 01/14/17 04:00 Pulse 88 01/14/17 07:45 Resp 19 01/14/17 04:00 BP 112/62 01/14/17 04:00 Pulse Ox 95 01/14/17 04:00 Intake & Output 01/13/17 01/14/17 01/14/17 18:59 06:59 18:59 Intake Total 480 100 360 Output Total 1600 580 Balance -1120 -480 360 Weight 94.3 kg Intake: Oral 480 100 360 Output: Urine 1600 580 Other: Voiding Method Urinal # Voids 2 1 # Bowel Movements 0 - Labs CBC & Chem 7: 01/14/17 05:36 01/14/17 05:36 Labs: Abnormal Lab Results - Last 24 Hours (Table) 01/13/17 01/13/17 01/13/17 Range/Units 12:01 16:57 20:29 RBC (4.30-5.90) m/uL Hgb (13.0-17.5) gm/dL Hct (39.0-53.0) % Lymphocytes # (1.0-4.8) k/uL Monocytes # (0-1.0) k/uL PT (9.0-12.0) sec Chloride (98-107) mmol/L Carbon Dioxide (22-30) mmol/L BUN (9-20) mg/dL Creatinine (0.66-1.25) mg/dL Glucose (74-99) mg/dL POC Glucose (mg/dL) 176 H 182 H 331 H (75-99) mg/dL Total Protein (6.3-8.2) g/dL Albumin (3.5-5.0) g/dL 01/14/17 01/14/17 01/14/17 Range/Units 05:36 05:36 05:36 RBC 3.34 L (4.30-5.90) m/uL Hgb 10.8 L (13.0-17.5) gm/dL Hct 32.5 L (39.0-53.0) % Lymphocytes # 0.6 L (1.0-4.8) k/uL Monocytes # 1.1 H (0-1.0) k/uL PT 13.2 H (9.0-12.0) sec Chloride 94 L (98-107) mmol/L Carbon Dioxide 35 H (22-30) mmol/L BUN 59 H (9-20) mg/dL Creatinine 1.66 H (0.66-1.25) mg/dL Glucose 106 H (74-99) mg/dL POC Glucose (mg/dL) (75-99) mg/dL Total Protein 5.8 L (6.3-8.2) g/dL Albumin 3.3 L (3.5-5.0) g/dL 01/14/17 Range/Units 05:37 RBC (4.30-5.90) m/uL Hgb (13.0-17.5) gm/dL Hct (39.0-53.0) % Lymphocytes # (1.0-4.8) k/uL Monocytes # (0-1.0) k/uL PT (9.0-12.0) sec Chloride (98-107) mmol/L Carbon Dioxide (22-30) mmol/L BUN (9-20) mg/dL Creatinine (0.66-1.25) mg/dL Glucose (74-99) mg/dL POC Glucose (mg/dL) 118 H (75-99) mg/dL Total Protein (6.3-8.2) g/dL Albumin (3.5-5.0) g/dL Assessment and Plan Plan: Assessment: #1. Nonoliguric acute kidney injury secondary to cardiorenal syndrome. Creatinine peaked at 2.6 and down to 1.66 today. #2. Volume overload. Improved. #3. Systolic CHF with ejection fraction of less than 20% with moderate mitral regurgitation and pulmonary hypertension. #4. Rule out chronic kidney disease. Unclear as to what his baseline renal function is. Urinalysis noted to be benign. #5. Metabolic alkalosis secondary to diuretic induced volume contraction. Stable. Plan: Strict I's and O's and daily weights. Avoid nephrotoxic agents and hypotensive episodes. Repeat electrolytes in the morning. Midodrine 5 mg as needed for systolic blood pressure less than 90. I advised him to follow a low-salt and a 50 ounce fluid restricted diet. Stable to be discharged home on Lasix 40 mg orally twice daily. He is to weigh himself daily and to increase Lasix to 3 times a day for weight gain over 2-3 pounds. He will need to follow-up as an outpatient in the next 2 weeks.
--- NOTE | 2017-01-14 09:41 | P.DS ---
Providers Date of admission: 01/03/17 17:11 Expected date of discharge: 01/14/17 Attending physician: Leon Clarke Consults: 01/03/17 17:11 Consult Physician Routine Consulting Provider: Nesha Osborne Consult Reason/Comments: chf Do you want consulting provider notified?: Yes 01/06/17 11:52 Consult Physician Urgent Consulting Provider: Inez Maxwell Consult Reason/Comments: Worsening renal status Do you want consulting provider notified?: Yes [facility] [place] Course: 66-year-old white male admitted with acute systolic congestive heart failure was started on new drug entrust O twice a day he has some nonsustained V. tach to select with a light fast which will be needed prior to discharge he had acute renal insufficiency stage III which needed to be medications modifier for congestive heart failure and renal failure in his breathing was improved down to 3 L of oxygen when she'll go home on the 3 L medications were adjusted as well as his Lasix and potassium doses and he will follow-up in the renal with the renal physician log chipper operator and primary care physician as an outpatient clear by renal physician log chipper operator on discharge need a BMP done once a week and discharge Patient Condition at Discharge: Good Plan - Discharge Summary New Discharge Prescriptions: New Sacubitril/Valsartan [Entresto 24 mg-26 mg Tablet] 1 each PO BID #60 tab Aspirin EC [Ecotrin Low Dose] 81 mg PO DAILY #30 tablet. Carvedilol [Coreg] 3.125 mg PO AC-BID #60 tab Furosemide [Lasix] 40 mg PO BID@0900,1600 #60 tab Continue Tiotropium 18 Mcg/Puff [Spiriva] 1 cap INHALATION RT-DAILY Fluticasone/Salmeterol [Advair 250-50 Diskus] 1 puff INHALATION RT-BID Warfarin Sodium [Coumadin] 4 mg PO HS metFORMIN HCL [Metformin HCl] 1,000 mg PO BID Tamsulosin HCl [Flomax] 0.4 mg PO DAILY Rosuvastatin [Crestor] 10 mg PO HS Furosemide [Lasix] 40 mg PO BID Carvedilol [Coreg] 3.125 mg PO BID Ipratropium-Albuterol Nebulize [Duoneb 0.5 mg-3 mg/3 ml Soln] 3 ml INHALATION RT-Q4H Ferrous Gluconate 27mg 27 mg PO DAILY Discontinued Celecoxib [CeleBREX] 200 mg PO DAILY Aspirin EC [Ecotrin] 325 mg PO DAILY Discharge Medication List Carvedilol [Coreg] 3.125 mg PO BID 01/03/17 [History] Ferrous Gluconate 27mg 27 mg PO DAILY 01/03/17 [History] Fluticasone/Salmeterol [Advair 250-50 Diskus] 1 puff INHALATION RT-BID 01/03/17 [History] Furosemide [Lasix] 40 mg PO BID 01/03/17 [History] Ipratropium-Albuterol Nebulize [Duoneb 0.5 mg-3 mg/3 ml Soln] 3 ml INHALATION RT -Q4H 01/03/17 [History] Rosuvastatin [Crestor] 10 mg PO HS 01/03/17 [History] Tamsulosin HCl [Flomax] 0.4 mg PO DAILY 01/03/17 [History] Tiotropium 18 Mcg/Puff [Spiriva] 1 cap INHALATION RT-DAILY 01/03/17 [History] Warfarin Sodium [Coumadin] 4 mg PO HS 01/03/17 [History] metFORMIN HCL [Metformin HCl] 1,000 mg PO BID 01/03/17 [History] Sacubitril/Valsartan [Entresto 24 mg-26 mg Tablet] 1 each PO BID #60 tab [Rx] Aspirin EC [Ecotrin Low Dose] 81 mg PO DAILY #30 tablet. 01/13/17 [Rx] Carvedilol [Coreg] 3.125 mg PO AC-BID #60 tab 01/13/17 [Rx] Furosemide [Lasix] 40 mg PO BID@0900,1600 #60 tab 01/13/17 [Rx] Follow up Appointment(s)/Referral(s): Leon Clarke MD [STAFF PHYSICIAN] - 1 Week (Please call office when open to scedule appointment) [facility], [NON-STAFF] - Nonstaff,Physician [REFERRING] - 1-2 days Jhony De Los Santos DO [STAFF PHYSICIAN] - 2 Weeks (Please call office to scedule appointment when open) Akash Mcnair MD [STAFF PHYSICIAN] - 1 Week Activity/Diet/Wound Care/Special Instructions: *building construction supervisor Entresto from [facility] at time of discharge*
[2017-01-14 11:23] LABS: Glucose,Whole Blood 168 mg/dL (75-99)
[2017-01-14 16:39] LABS: Glucose,Whole Blood 264 mg/dL (75-99)
--- NOTE | 2017-01-14 17:33 | P.PN ---
Subjective Principal diagnosis: CHF and renal failure This patient is admitted with the findings of the CHF with ejection fraction about 20% and also acute kidney injury. Patient has received some IV fluids. Yesterday. It appears that patient has gained some fluid. His IV fluid is cut back and patient has received one dose of Lasix. Patient is going to be observed for next 24 hours. Possible discharge tomorrow. His creatinine is in the range of 2.3. Patient is reexamined on January 14. Patient is doing well. Patient had episodes of nonsustained V. tach. Patient is waiting to have a vest. He denies any chest pain. His breathing has been stable. Possible discharge in 24 hours. Objective - Vital Signs Vital signs: Vital Signs Temp 97.7 F 01/14/17 08:00 Pulse 90 01/14/17 15:15 Resp 16 01/14/17 12:00 BP 109/63 01/14/17 12:00 Pulse Ox 98 01/14/17 12:00 Intake & Output 01/13/17 01/14/17 01/14/17 18:59 06:59 18:59 Intake Total 480 100 600 Output Total 1600 580 800 Balance -1120 -480 -200 Weight 94.3 kg Intake: Oral 480 100 600 Output: Urine 1600 580 800 Other: Voiding Method Urinal # Voids 2 1 1 # Bowel Movements 0 - Labs CBC & Chem 7: 01/14/17 05:36 01/14/17 05:36 Labs: Abnormal Lab Results - Last 24 Hours (Table) 01/13/17 01/14/17 01/14/17 Range/Units 20:29 05:36 05:36 RBC 3.34 L (4.30-5.90) m/uL Hgb 10.8 L (13.0-17.5) gm/dL Hct 32.5 L (39.0-53.0) % Lymphocytes # 0.6 L (1.0-4.8) k/uL Monocytes # 1.1 H (0-1.0) k/uL PT (9.0-12.0) sec Chloride 94 L (98-107) mmol/L Carbon Dioxide 35 H (22-30) mmol/L BUN 59 H (9-20) mg/dL Creatinine 1.66 H (0.66-1.25) mg/dL Glucose 106 H (74-99) mg/dL POC Glucose (mg/dL) 331 H (75-99) mg/dL Total Protein 5.8 L (6.3-8.2) g/dL Albumin 3.3 L (3.5-5.0) g/dL 01/14/17 01/14/17 01/14/17 Range/Units 05:36 05:37 11:16 RBC (4.30-5.90) m/uL Hgb (13.0-17.5) gm/dL Hct (39.0-53.0) % Lymphocytes # (1.0-4.8) k/uL Monocytes # (0-1.0) k/uL PT 13.2 H (9.0-12.0) sec Chloride (98-107) mmol/L Carbon Dioxide (22-30) mmol/L BUN (9-20) mg/dL Creatinine (0.66-1.25) mg/dL Glucose (74-99) mg/dL POC Glucose (mg/dL) 118 H 168 H (75-99) mg/dL Total Protein (6.3-8.2) g/dL Albumin (3.5-5.0) g/dL 01/14/17 Range/Units 16:32 RBC (4.30-5.90) m/uL Hgb (13.0-17.5) gm/dL Hct (39.0-53.0) % Lymphocytes # (1.0-4.8) k/uL Monocytes # (0-1.0) k/uL PT (9.0-12.0) sec Chloride (98-107) mmol/L Carbon Dioxide (22-30) mmol/L BUN (9-20) mg/dL Creatinine (0.66-1.25) mg/dL Glucose (74-99) mg/dL POC Glucose (mg/dL) 264 H (75-99) mg/dL Total Protein (6.3-8.2) g/dL Albumin (3.5-5.0) g/dL Assessment and Plan (1) COPD (chronic obstructive pulmonary disease) Status: Acute (2) Chronic a-fib Status: Acute (3) Congestive heart failure Status: Acute (4) Diabetes Status: Acute (5) Elevated troponin Status: Acute Plan: Patient is clinically stable. Waiting for a vest. Possible discharge within next 24 hours. Patient is back on Aldactone. His electrolytes to be followed closely.
[2017-01-14 20:30] LABS: Glucose,Whole Blood 273 mg/dL (75-99)
[2017-01-14] MEDS: ATORVASTATIN 40 MG TAB PO SCH (21:08)
[2017-01-14] MEDS: WARFARIN 2 MG TAB PO SCH (21:08)
[2017-01-14] MEDS: FAMOTIDINE 20 MG TAB PO SCH (21:08)
[2017-01-14] MEDS: IPRATROPIUM-ALBUTEROL 3 ML NEB INHALATION PRN (23:23)
[2017-01-15 05:31] LABS: Potassium 4.1 mmol/L (3.5-5.1)
[2017-01-15 05:59] LABS: Glucose,Whole Blood 142 mg/dL (75-99)
[2017-01-15] MEDS: INSULIN LISPRO (humaLOG) 300 UNIT/3 ML VIAL SQ SCH (06:37)
[2017-01-15] MEDS: CARVEDILOL 3.125 MG TAB PO SCH (06:37)
[2017-01-15] MEDS: SYMBICORT 80-4.5 MCG INHALER INHALATION SCH (08:13)
[2017-01-15] MEDS: IPRATROPIUM-ALBUTEROL 3 ML NEB INHALATION SCH ×2 (08:13→11:45)
[2017-01-15 09:27] VITALS: BP 95/56; RESP 98; TEMP 96.8
--- NOTE | 2017-01-15 10:42 | P.PN ---
Subjective Patient is seen in follow-up for acute kidney injury. Patient has systolic CHF with ejection fraction of less than 20% and moderate mitral regurgitation and pulmonary hypertension. Patient presented with dyspnea. He is currently maintained on Lasix 40 mg orally twice daily. He was also on dobutamine drip which has now been discontinued. Patient states his dyspnea as well as his edema is much improved since admission. No vomiting or diarrhea. Oral intake is good. Weight is trending down. No active complaints at this time. Vital signs are stable. General: The patient appeared well nourished and normally developed. HEENT: Head exam is unremarkable. Neck is without jugular venous distension. LUNGS: Lungs are clear to auscultation and percussion. Breath sounds decreased. HEART: Rate and Rhythm are regular. First and second heart sounds normal. No murmurs, rubs or gallops. ABDOMEN: Abdominal exam reveals normal bowel sounds. Non-tender and non- distended. No evidence of peritonitis. EXTREMITITES: Trace edema. Objective - Vital Signs Vital signs: Vital Signs Temp 96.8 F L 01/15/17 08:00 Pulse 76 01/15/17 08:22 Resp 98 H 01/15/17 08:00 BP 95/56 01/15/17 08:00 Pulse Ox 98 01/15/17 08:14 Intake & Output 01/14/17 01/15/17 01/15/17 18:59 06:59 18:59 Intake Total 840 360 Output Total 800 820 350 Balance 40 -820 10 Weight 93.7 kg Intake: Oral 840 360 Output: Urine 800 820 350 Other: # Voids 1 1 - Labs CBC & Chem 7: 01/14/17 05:36 01/15/17 04:28 Labs: Abnormal Lab Results - Last 24 Hours (Table) 01/14/17 01/14/17 01/14/17 Range/Units 11:16 16:32 20:26 Chloride (98-107) mmol/L Carbon Dioxide (22-30) mmol/L BUN (9-20) mg/dL Creatinine (0.66-1.25) mg/dL Glucose (74-99) mg/dL POC Glucose (mg/dL) 168 H 264 H 273 H (75-99) mg/dL 01/15/17 01/15/17 Range/Units 04:28 05:57 Chloride 94 L (98-107) mmol/L Carbon Dioxide 35 H (22-30) mmol/L BUN 52 H (9-20) mg/dL Creatinine 1.60 H (0.66-1.25) mg/dL Glucose 147 H (74-99) mg/dL POC Glucose (mg/dL) 142 H (75-99) mg/dL Assessment and Plan Plan: Assessment: #1. Nonoliguric acute kidney injury secondary to cardiorenal syndrome. Creatinine peaked at 2.6 and down to 1.60 today. #2. Volume overload. Improved. #3. Systolic CHF with ejection fraction of less than 20% with moderate mitral regurgitation and pulmonary hypertension. #4. Rule out chronic kidney disease. Unclear as to what his baseline renal function is. Urinalysis noted to be benign. #5. Metabolic alkalosis secondary to diuretic induced volume contraction. Stable. Plan: Strict I's and O's and daily weights. Avoid nephrotoxic agents and hypotensive episodes. Repeat electrolytes in the morning. Midodrine 5 mg as needed for systolic blood pressure less than 90. I advised him to follow a low-salt and a 50 ounce fluid restricted diet. Stable to be discharged home on Lasix 40 mg orally twice daily. He is to weigh himself daily and to increase Lasix to 3 times a day for weight gain over 2-3 pounds. He will need to follow-up as an outpatient in the next 2 weeks.
[2017-01-15] MEDS: predniSONE 20 MG TAB PO SCH (10:43)
[2017-01-15] MEDS: FUROSEMIDE 40 MG TAB PO SCH (10:43)
[2017-01-15] MEDS: TAMSULOSIN 0.4 MG CAP.ER.24H PO SCH (10:44)
[2017-01-15] MEDS: traMADol 50 MG TAB PO SCH (10:44)
[2017-01-15] MEDS: SPIRONOLACTONE 25 MG TAB PO SCH (10:44)
[2017-01-15] MEDS: SACUBITRIL/VALSARTAN 24 MG-26 MG TABLET PO SCH (10:44)
[2017-01-15] MEDS: FERROUS SULFATE 325 MG TAB PO SCH (10:45)
[2017-01-15 11:25] LABS: Glucose,Whole Blood 117 mg/dL (75-99)
[2017-01-15 12:04] VITALS: PULSE 80
--- NOTE | 2017-01-15 12:37 | P.DS ---
Providers Date of admission: 01/03/17 17:11 Expected date of discharge: 01/15/17 Attending physician: Leon Clarke Consults: 01/03/17 17:11 Consult Physician Routine Consulting Provider: Nesha Osborne Consult Reason/Comments: chf Do you want consulting provider notified?: Yes 01/06/17 11:52 Consult Physician Urgent Consulting Provider: Inez Maxwell Consult Reason/Comments: Worsening renal status Do you want consulting provider notified?: Yes Primary care physician: [facility] Course: 66-year-old white male admitted with acute systolic congestive heart failure was started on new drug entresto 24mg-26mg twice a day he has some nonsustained V. tach cardiology and nephrology participated in the plan of care. Patient was started on IV dobutamine and Lasix drip . Clinical status and renal status monitored closely . There was a noted improvement in patient's clinical presentation. Patient was less short of breath and there was a significant improvement in the edema to the lower extremities cardiology indicated the patient would need to be fitted for a life vest he had acute renal insufficiency stage III which needed to be medications modifier for congestive heart failure and renal failure in his breathing was improved down to 3 L of oxygen medications were adjusted as well as his Lasix and potassium doses at the time of discharge patient was fitted for the LifeVest. Nephrology indicate the patient could be discharged as well. Patient's Lasix was titrated over to oral discharged on Lasix 40 twice a day kidney function improved Patient Condition at Discharge: Good patient was treated by cardiology for an acute exacerbation of decompensated systolic congestive heart failure EF 20%. Patient significantly improved was felt to be hemodynamically stable and appropriate to proceed with a discharge to home Impression Present on admission shortness of breath exertional dyspnea due to an acute exacerbation of decompensated systolic heart failure EF less than 20 Chronic hypoxic respiratory failure O2 dependent 3 L [id number] at home Current every day smoker active Hypertension Debility Hyperlipidemia History of Paroxysmal atrial fibrillation maintaining sinus on anticoagulation Coumadin Episode of nonsustained V. tach Metabolic alkalosis secondary to diuretics induced volume contraction Nonoliguric acute kidney injury secondary to cardiorenal syndrome. Creatinine 2.6 on January 09 suspect due to diuresis New-onset suspect gout to the left great toe in a patient with a history of gout Acute on chronic congestive heart failure systolic dysfunction Mildly elevated troponins suspect due to acute exacerbation of systolic dysfunction type II no evidence of an acute coronary syndrome the above impression and plan of care have been discussed and directed by signing physician. Kelin Catalan nurse practitioner acting as scribe for signing physician. Patient Condition at Discharge: Good Plan - Discharge Summary New Discharge Prescriptions: New Sacubitril/Valsartan [Entresto 24 mg-26 mg Tablet] 1 each PO BID #60 tab Aspirin EC [Ecotrin Low Dose] 81 mg PO DAILY #30 tablet. Carvedilol [Coreg] 3.125 mg PO AC-BID #60 tab Furosemide [Lasix] 40 mg PO BID@0900,1600 #60 tab Spironolactone [Aldactone] 25 mg PO DAILY #30 tab predniSONE 60 mg PO DAILY #15 tab Continue Tiotropium 18 Mcg/Puff [Spiriva] 1 cap INHALATION RT-DAILY Fluticasone/Salmeterol [Advair 250-50 Diskus] 1 puff INHALATION RT-BID Warfarin Sodium [Coumadin] 4 mg PO HS metFORMIN HCL [Metformin HCl] 1,000 mg PO BID Tamsulosin HCl [Flomax] 0.4 mg PO DAILY Rosuvastatin [Crestor] 10 mg PO HS Furosemide [Lasix] 40 mg PO BID Carvedilol [Coreg] 3.125 mg PO BID Ipratropium-Albuterol Nebulize [Duoneb 0.5 mg-3 mg/3 ml Soln] 3 ml INHALATION RT-Q4H Ferrous Gluconate 27mg 27 mg PO DAILY Discontinued Celecoxib [CeleBREX] 200 mg PO DAILY Aspirin EC [Ecotrin] 325 mg PO DAILY Discharge Medication List Carvedilol [Coreg] 3.125 mg PO BID 01/03/17 [History] Ferrous Gluconate 27mg 27 mg PO DAILY 01/03/17 [History] Fluticasone/Salmeterol [Advair 250-50 Diskus] 1 puff INHALATION RT-BID 01/03/17 [History] Furosemide [Lasix] 40 mg PO BID 01/03/17 [History] Ipratropium-Albuterol Nebulize [Duoneb 0.5 mg-3 mg/3 ml Soln] 3 ml INHALATION RT -Q4H 01/03/17 [History] Rosuvastatin [Crestor] 10 mg PO HS 01/03/17 [History] Tamsulosin HCl [Flomax] 0.4 mg PO DAILY 01/03/17 [History] Tiotropium 18 Mcg/Puff [Spiriva] 1 cap INHALATION RT-DAILY 01/03/17 [History] Warfarin Sodium [Coumadin] 4 mg PO HS 01/03/17 [History] metFORMIN HCL [Metformin HCl] 1,000 mg PO BID 01/03/17 [History] Sacubitril/Valsartan [Entresto 24 mg-26 mg Tablet] 1 each PO BID #60 tab [Rx] Aspirin EC [Ecotrin Low Dose] 81 mg PO DAILY #30 tablet. 01/13/17 [Rx] Carvedilol [Coreg] 3.125 mg PO AC-BID #60 tab 01/13/17 [Rx] Furosemide [Lasix] 40 mg PO BID@0900,1600 #60 tab 01/13/17 [Rx] Spironolactone [Aldactone] 25 mg PO DAILY #30 tab 01/15/17 [Rx] predniSONE 60 mg PO DAILY #15 tab 01/15/17 [Rx] Follow up Appointment(s)/Referral(s): [facility], [NON-STAFF] - Nonstaff,Physician [REFERRING] - 1-2 days Jhony De Los Santos DO [STAFF PHYSICIAN] - 2 Weeks (Please call office to scedule appointment when open) Akash Mcnair MD [STAFF PHYSICIAN] - 1 Week Leon Clarke MD [STAFF PHYSICIAN] - 01/21/17 (Please call office when open to scedule appointment) Patient Instructions/Handouts: Heart Failure (ED) Activity/Diet/Wound Care/Special Instructions: *postal superintendent Entresto from [facility] at time of discharge* Low salt diet Lasix 40 twice a day increase to 3 times a day for weight gain over 2-3 pounds Discharge Disposition: HOME WITH HOME HEALTH SERVICES
--- NOTE | 2017-01-15 12:48 | P.PN ---
Subjective Principal diagnosis: This patient is treated for nonischemic cardiomyopathy he is feeling better. Since creatinine is 1.6 BU and is 52 is ambulatory in the hallway without any dizziness and will be discharged on the current medications as well as a LifeVest Objective - Vital Signs Vital signs: Vital Signs Temp 96.8 F L 01/15/17 08:00 Pulse 80 01/15/17 11:55 Resp 98 H 01/15/17 08:00 BP 95/56 01/15/17 08:00 Pulse Ox 98 01/15/17 08:14 Intake & Output 01/14/17 01/15/17 01/15/17 18:59 06:59 18:59 Intake Total 840 360 Output Total 800 820 350 Balance 40 -820 10 Weight 93.7 kg Intake: Oral 840 360 Output: Urine 800 820 350 Other: Voiding Method Urinal # Voids 1 1 - Exam Vital signs are reviewed. Heart. First and second heart sounds are normal Lungs. Clear to auscultation and percussion. - Labs CBC & Chem 7: 01/14/17 05:36 01/15/17 04:28 Labs: Abnormal Lab Results - Last 24 Hours (Table) 01/14/17 01/14/17 01/15/17 Range/Units 16:32 20:26 04:28 Chloride 94 L (98-107) mmol/L Carbon Dioxide 35 H (22-30) mmol/L BUN 52 H (9-20) mg/dL Creatinine 1.60 H (0.66-1.25) mg/dL Glucose 147 H (74-99) mg/dL POC Glucose (mg/dL) 264 H 273 H (75-99) mg/dL 01/15/17 01/15/17 Range/Units 05:57 11:22 Chloride (98-107) mmol/L Carbon Dioxide (22-30) mmol/L BUN (9-20) mg/dL Creatinine (0.66-1.25) mg/dL Glucose (74-99) mg/dL POC Glucose (mg/dL) 142 H 117 H (75-99) mg/dL Assessment and Plan Plan: Congestive heart failure improved. Patient is currently euvolemic. Patient is discharged home today.
== END 2017-01-15 13:05 | disposition home health service (06) | DRG 291 ==
LOC: EC 13:30 → 6SEL 17:11
PROVIDERS: ADMIT Family Medicine; ATTEND Family Medicine
DX: I13.0 Hypertensive heart and chronic kidney disease with heart failure and stage 1 through stage 4 chronic kidney disease, or unspecified chronic kidney disease (principal); I50.23 Acute on chronic systolic (congestive) heart failure; I47.2 Ventricular tachycardia; N17.9 Acute kidney failure, unspecified; J96.11 Chronic respiratory failure with hypoxia; E87.3 Alkalosis; J44.1 Chronic obstructive pulmonary disease with (acute) exacerbation; I95.9 Hypotension, unspecified; I27.2 Other secondary pulmonary hypertension; E87.8 Other disorders of electrolyte and fluid balance, not elsewhere classified; E11.22 Type 2 diabetes mellitus with diabetic chronic kidney disease; N18.3 Chronic kidney disease, stage 3 (moderate); I42.9 Cardiomyopathy, unspecified; E11.65 Type 2 diabetes mellitus with hyperglycemia; D64.9 Anemia, unspecified; E78.5 Hyperlipidemia, unspecified; F17.210 Nicotine dependence, cigarettes, uncomplicated; I34.0 Nonrheumatic mitral (valve) insufficiency; I48.0 Paroxysmal atrial fibrillation; I48.2 Chronic atrial fibrillation; M10.9 Gout, unspecified; M19.90 Unspecified osteoarthritis, unspecified site; T50.2X5A Adverse effect of carbonic-anhydrase inhibitors, benzothiadiazides and other diuretics, initial encounter; N42.9 Disorder of prostate, unspecified; Z79.01 Long term (current) use of anticoagulants; Z79.82 Long term (current) use of aspirin; Z79.899 Other long term (current) drug therapy; Z79.84 Long term (current) use of oral hypoglycemic drugs; Z99.81 Dependence on supplemental oxygen
CPT/HCPCS: 36415; 71020; 80048; 80053; 81003; 82550; 82553; 83036; 83540; 83550; 83735; 83880; 84443; 84484; 85025; 85027; 85610; 85730; 87040; 93005; 93306; 94640; 94760

== ENCOUNTER → 2017-02-14 | Outpatient (CLI) | payer MEDICARE ==
--- NOTE | 2017-02-14 13:02 | US ---
EXAMINATION TYPE: US kidneys/renal and bladder DATE OF EXAM: 02/14/2017 COMPARISON: NONE CLINICAL HISTORY: N18.3 Chronic kidney disease stage 3. EXAM MEASUREMENTS: Right Kidney: 12.0 x 5.2 x 5.9 cm Left Kidney: 11.0 x 5.8 x 4.8 cm Right Kidney: No hydronephrosis or masses seen Left Kidney: No hydronephrosis or masses seen Bladder: wnl IMPRESSION: Normal renal ultrasound
== END | disposition home or self-care (01) ==
LOC: RADUSWWP 10:49
PROVIDERS: ATTEND Internal Medicine
DX: N18.3 Chronic kidney disease, stage 3 (moderate) (principal)
CPT/HCPCS: 76770

== ENCOUNTER → 2017-04-15 | Outpatient (CLI) | payer MEDICARE ==
[2017-04-15 13:41] LABS: Calcium 9.8 mg/dL (8.4-10.2); Potassium 4.2 mmol/L (3.5-5.1)
== END | disposition home or self-care (01) ==
LOC: LABWHC1 12:08
PROVIDERS: ATTEND Internal Medicine Cardiovascular Disease
DX: I50.9 Heart failure, unspecified (principal)
CPT/HCPCS: 36415; 80048

== ENCOUNTER → 2017-04-30 | Outpatient (CLI) | payer MEDICARE ==
[2017-04-30 11:54] LABS: Appearance,Urine Clear (Clear); Bilirubin,Urine Negative (Negative); Glucose,Urine (UA) Negative (Negative); Ketones,Urine Negative (Negative); Leukocyte Esterase,Urine Negative (Negative); Nitrite,Urine Negative (Negative); PH, Urine 6.5 (5.0-8.0); Protein,Urine Negative (Negative); Specific Gravity,Urine 1.003 (1.001-1.035); UA Billing (MACRO vs. MICRO) CHEM; Urobilinogen,Urine <2.0 mg/dL (<2.0)
[2017-04-30 11:59] LABS: CH 31.3; CHCM 32.6; HCT 34.6 % (39.0-53.0); HGB 11.2 gm/dL (13.0-17.5); MCH 31.2 pg (25.0-35.0); MCHC 32.3 g/dL (31.0-37.0); MCV 96.5 fL (80.0-100.0); Mean Platelet Volume 6.6; RBC 3.58 m/uL (4.30-5.90); RDW 14.6 % (11.5-15.5); WBC 5.2 k/uL (3.8-10.6)
[2017-04-30 12:20] LABS: Calcium 9.1 mg/dL (8.4-10.2); Magnesium 1.9 mg/dL (1.6-2.3); Phosphorous 3.7 mg/dL (2.5-4.5); Potassium 4.2 mmol/L (3.5-5.1); Uric Acid 6.5 mg/dL (3.5-8.5)
[2017-04-30 12:26] LABS: Hemoglobin A1C 5.8 % (4.2-6.1)
[2017-04-30 15:31] LABS: Iron Saturation 27.14 (15.00-50.00)
== END | disposition home or self-care (01) ==
LOC: LABWHC1 11:15
PROVIDERS: ATTEND Nurse Practitioner Family
DX: E55.9 Vitamin D deficiency, unspecified (principal); M10.9 Gout, unspecified; E21.3 Hyperparathyroidism, unspecified; N39.0 Urinary tract infection, site not specified; D63.1 Anemia in chronic kidney disease; N18.3 Chronic kidney disease, stage 3 (moderate); E11.22 Type 2 diabetes mellitus with diabetic chronic kidney disease
CPT/HCPCS: 36415; 80048; 81003; 82306; 82728; 83036; 83540; 83550; 83735; 83970; 84100; 84550; 85027

== ENCOUNTER 2017-05-20 13:40 | Day surgery (SDC) | payer MEDICARE ==
[2017-05-19 09:43] VITALS: BMI 30.4
[~2017-05-20 13:40] MED LIST: LACTATED RINGERS 1,000 ML IV SCH; LIDOCAINE 1% 20 ML VIAL (10MG/ML) FOR IV START INTRADERMA PRN; SODIUM CHLORIDE 0.9% 1,000 ML IV SCH; ceFAZolin 1,000 MG in SODIUM CHLORIDE 0.9% IRRIGATIO 250 ML IRRIGATION ONE; ceFAZolin IN SWFI 2 GM/20 ML SYRINGE IVP ONE
[2017-05-20 14:47] LABS: INR 2.2 (<1.2); Prothrombin Time 21.3 sec (9.0-12.0)
[2017-05-20] MEDS ORDERED: WARFARIN 2 MG TAB PO SCH (18:00)
[2017-05-20] MEDS ORDERED: PROPOFOL 10 MG/ML 20 ML VIAL IV ONE (18:19)
[2017-05-20] MEDS ORDERED: diphenhydrAMINE 50 MG/ML 1 ML VIAL ONE (18:19)
[2017-05-20] MEDS ORDERED: MIDAZOLAM 2 MG/2 ML VIAL ONE (18:19)
[2017-05-20] MEDS ORDERED: SODIUM CHLORIDE 0.9% 100 ML BAG ONE (18:19)
[2017-05-20] MEDS ORDERED: IOHEXOL 350 MG/ML 50ML BOTTLE INJ ONE (18:41)
[2017-05-20] MEDS ORDERED: LIDOCAINE 1% INJ 10MG/ML (20 ML MDV) SQ ONE (18:58)
[2017-05-20] MEDS ORDERED: HYDROcodone/APAP 5-325MG 1 EACH TAB PO PRN (19:45)
[2017-05-20] MEDS ORDERED: ACETAMINOPHEN IV (For NPO) 1,000 MG in EMPTY BAG 1 BAG IVPB ONE (19:45)
[2017-05-20] MEDS: SACUBITRIL/VALSARTAN 24 MG-26 MG TABLET PO SCH (20:43)
--- NOTE | 2017-05-20 20:49 | CE ---
CARDIAC ELECTROPHYSIOLOGY REPORT This is a 66-year-old male patient with severe nonischemic cardiomyopathy without any significant improvement in the LV systolic function, although his heart failure class improved with heart failure therapy over the last year or so. His ejection fraction remains in the territory of 5%. He also has nonsustained ventricular tachycardia, Class II heart failure now, stable. He is brought in for a single-chamber ICD implant for primary prevention of sudden cardiac . The patient was brought to the EP lab in the fasting state. Written informed consent was obtained prior to the procedure. The left shoulder area was prepped and draped as per protocol. 1% lidocaine was used for local anesthesia. A 4 cm incision was made parallel to the deltopectoral groove, about 1.5 cm medial to it. The incision was carried down to the level of the pectoralis muscle. A subfascial pocket was made. Hemostasis was assured. The left axillary vein was accessed at a single point and an appropriately-sized introducer sheath single coil ICD lead was positioned in the RV apex. This was a [employer] Foresight SG Active Fit single coil lead, 59 cm and model #0292, serial #[id number]. R-waves 15.6 mV, pacing threshold 0.6 V at 0.5 msec. Pacing impedance of 554 ohms. 10 V test was negative. The lead was secured to the underlying pectoralis fascia using 2 nonabsorbable sutures. Pocket was irrigated with antibiotic solution. Leads were connected to the generator ([employer] Energen EL ICD DF4-VR, model #D140, serial #[id number]). The lead and the generator were placed in the subfascial pocket and the wound was closed in 3 layers and dressed per protocol. The device was secured to the underlying pectoralis muscle with a silk suture. ICD TESTING UNDER ANESTHESIA: A shock and T-wave protocol was used to induce ventricular fibrillation. This was adequately and appropriately detected at least sensitivity with , but an 11 joule shock was unsuccessful in defibrillating the patient. The patient remained in ventricular fibrillation. This was a fine ventricular fibrillation with several drop- offs at lead sensitivity, but successfully internally defibrillated with a 21-joule shock. The charge time was 3.6 seconds, shock impedance 67 ohms. No post shock noise. The vector was distal coiled . The device was then programmed according to the MADIT-RIT programming with appropriate antitachycardia pacing cardioversion defibrillation. Sensitivity programming was 0.4 mV, VVI 40 ppm for backup pacing. RESULTS: Successful single-chamber ICD implantation for primary prevention of sudden cardiac . PLAN: Discontinue midodrine and if the patient has dizzy spells and low blood pressure, then carvedilol will be switched to Toprol-XL instead, but he should not be on midodrine. EZRAL / GARRYN: [id number] /
[2017-05-20] MEDS: IPRATROPIUM-ALBUTEROL 3 ML NEB INHALATION SCH (20:52)
[2017-05-20] MEDS: SYMBICORT 80-4.5 MCG INHALER INHALATION SCH (20:52)
--- NOTE | 2017-05-20 20:55 | LTR ---
Dear Leon: I had the pleasure of seeing Stephen in electrophysiology followup. Stephen underwent a single-chamber ICD implantation successfully. He does have a high DFT on account of severe cardiomyopathy that has not improved, despite appropriate medical treatment. At discharge, I would recommend stopping ProAmatine/midodrine completely. This is a vasoconstrictor and would not be beneficial for heart failure management. If he has episodes of dizzy spells and lightheadedness on a combination of carvedilol and Entresto, then carvedilol solution may be switch to Toprol-XL instead, but ProAmatine should be avoided. Thank you for entrusting me with the care of your patient. Since he also has persistent atrial fibrillation, anticoagulation will be a continued with warfarin. MMODL / IJN: [id number] /
[2017-05-20] MEDS ORDERED: TAMSULOSIN 0.4 MG CAP.ER.24H PO SCH (21:00)
[2017-05-20] MEDS ORDERED: ATORVASTATIN 20 MG TAB PO SCH (21:00)
[2017-05-21 00:12] VITALS: RESP 18
[2017-05-21] MEDS: ACETAMINOPHEN TAB 325 MG TAB PO PRN ×2 (02:29→16:41)
[2017-05-21] MEDS: ceFAZolin IN SWFI 2 GM/20 ML SYRINGE IVP SCH ×4 (02:55→17:44)
[2017-05-21] MEDS: IPRATROPIUM-ALBUTEROL 3 ML NEB INHALATION SCH ×6 (07:20→16:16)
[2017-05-21] MEDS: SYMBICORT 80-4.5 MCG INHALER INHALATION SCH (07:22)
[2017-05-21 07:37] LABS: Glucose,Whole Blood 118 mg/dL (75-99)
[2017-05-21] MEDS ORDERED: NON-FORMULARY DRUG (Tiotropium 18 Mcg/Puff 1 CAP) INHALATION SCH (08:00)
--- NOTE | 2017-05-21 08:12 | XR ---
EXAMINATION TYPE: XR chest 2V DATE OF EXAM: 05/21/2017 COMPARISON: 01/10/2017 HISTORY: Shortness of breath TECHNIQUE: Frontal and lateral views of the chest are obtained. FINDINGS: Pacer device is in place with distal lead within the right ventricle. No evidence for pneumothorax. Scattered senescent parenchymal changes noted. Hyperinflation compatible with COPD. No evidence for infiltrate. No evidence for atelectasis. Heart size is stable. Mediastinal structures are stable and grossly unremarkable. No evidence for hilar prominence. Degenerative changes dorsal spine. IMPRESSION: 1. No evidence for acute pulmonary disease.
[2017-05-21] MEDS: CARVEDILOL 3.125 MG TAB PO SCH ×2 (08:21→16:41)
[2017-05-21] MEDS: SACUBITRIL/VALSARTAN 24 MG-26 MG TABLET PO SCH (08:21)
--- NOTE | 2017-05-21 08:27 | P.DS ---
Providers Attending physician: Jonathan Smith Primary care physician: [facility] Course: Impression Nonischemic cardio myopathy Non-improvement in LV systolic function despite appropriate heart failure medications, guideline directed Improvement in CHF status now and seizure class II, previously CHF class III Persistent atrial fibrillation Nonsustained ventricular tachycardia Diabetes adult-onset Plan Discharge home after completion of IV antibiotics chest x-ray and device interrogation Device clinic follow-up in 5 days Follow-up with Dr. Enriquez in 3-4 months Discontinue midodrine . Midodrine is to be avoided If he has dizzy spells associated with a low blood pressure , carvedilol will be stopped and Toprol-XL 25 mg by mouth daily or 50 mg by mouth daily will be recommended Patient Condition at Discharge: Stable Plan - Discharge Summary Discharge Rx Participant: Yes New Discharge Prescriptions: Discontinued Midodrine HCl [ProAmatine] 5 mg PO BID No Action Tiotropium 18 Mcg/Puff [Spiriva] 1 cap INHALATION RT-DAILY Fluticasone/Salmeterol [Advair 250-50 Diskus] 1 puff INHALATION RT-BID Warfarin Sodium [Coumadin] 6 mg PO MOWEFR Tamsulosin HCl [Flomax] 0.4 mg PO HS Rosuvastatin [Crestor] 10 mg PO HS Carvedilol [Coreg] 3.125 mg PO BID Ipratropium-Albuterol Nebulize [Duoneb 0.5 mg-3 mg/3 ml Soln] 3 ml INHALATION 5XD Ferrous Gluconate 27mg 27 mg PO DAILY Sacubitril/Valsartan [Entresto 24 mg-26 mg Tablet] 1 each PO BID #60 tab Aspirin EC [Ecotrin Low Dose] 81 mg PO DAILY #30 tablet. Dulaglutide [Trulicity] 1.5 mg SQ FR Febuxostat [Uloric] 40 mg PO DAILY Warfarin Sodium [Coumadin] 4 mg PO SUTUTHSA Furosemide [Lasix] 40 mg PO DAILY Hydrocodone/Acetaminophen [Hydrocodone/Acetaminophen 7.5-300] 1 tab PO Q6HR PRN PRN Reason: Pain Cholecalciferol [Vitamin D3] 1,000 unit PO BID Discharge Medication List Carvedilol [Coreg] 3.125 mg PO BID 01/03/17 [History] Ferrous Gluconate 27mg 27 mg PO DAILY 01/03/17 [History] Fluticasone/Salmeterol [Advair 250-50 Diskus] 1 puff INHALATION RT-BID 01/03/17 [History] Ipratropium-Albuterol Nebulize [Duoneb 0.5 mg-3 mg/3 ml Soln] 3 ml INHALATION 5XD 01/03/17 [History] Rosuvastatin [Crestor] 10 mg PO HS 01/03/17 [History] Tamsulosin HCl [Flomax] 0.4 mg PO HS 01/03/17 [History] Tiotropium 18 Mcg/Puff [Spiriva] 1 cap INHALATION RT-DAILY 01/03/17 [History] Warfarin Sodium [Coumadin] 6 mg PO MOWEFR 01/03/17 [History] Sacubitril/Valsartan [Entresto 24 mg-26 mg Tablet] 1 each PO BID #60 tab [Rx] Aspirin EC [Ecotrin Low Dose] 81 mg PO DAILY #30 tablet. 01/13/17 [Rx] Dulaglutide [Trulicity] 1.5 mg SQ FR 05/19/17 [History] Febuxostat [Uloric] 40 mg PO DAILY 05/19/17 [History] Furosemide [Lasix] 40 mg PO DAILY 05/19/17 [History] Warfarin Sodium [Coumadin] 4 mg PO SUTUTHSA 05/19/17 [History] Cholecalciferol [Vitamin D3] 1,000 unit PO BID 05/20/17 [History] Hydrocodone/Acetaminophen [Hydrocodone/Acetaminophen 7.5-300] 1 tab PO Q6HR PRN 05/20/17 [History] Activity/Diet/Wound Care/Special Instructions: PATIENT EDUCATION MATERIAL Instructions following a heart rhythm device implant. 1. Keep dressing DRY for ONE week. You may cover the area with Saran or Cling Wrap, prior to a shower. 2. The dressing will be removed after one week in the Device Clinic @ [facility]. Absorbable sutures were used to close the wound. 3. Avoid raising the [left] arm above the shoulder level. [6 week restriction] 4. Avoid arm movements, like backscratching, rubbing the head, or pulling on a cord. (6 weeks restriction) 5. Gentle range of motion movements of the shoulder, closest to the incision should be performed to avoid a frozen shoulder. (Pendulum exercises of the shoulder) 6. The opposite arm may be used freely. 7. Avoid driving for 7 days. 8. Avoid activities such as golfing, swimming, weed whacking, lifting more than 10 pounds weight, bowling, gymnastics and weight training/lifting. (6 weeks restriction) 9. Activities such as wood chopping with an axe, pull-ups in the gymnasium, power lifting, arc-welding, being close to home induction cooktops will always be a problem. In case of any problems, please call [facility], Ashleigh Lam, @ [phone], Attention: Device Clinic Stop midodrine Follow-up with device in 5 days and follow with Dr. Enriquez in 4 months Discharge Disposition: HOME SELF-CARE
[2017-05-21] MEDS ORDERED: FUROSEMIDE 40 MG TAB PO SCH (09:00)
[2017-05-21] MEDS ORDERED: ASPIRIN 81 MG PO SCH (09:00)
--- NOTE | 2017-05-21 09:20 | PN ---
PROGRESS NOTE Mr. Mcknight underwent single-chamber ICD for primary prevention of sudden cardiac . He is doing well from a cardiac standpoint. Denies any chest discomfort. No orthopnea or PND. His chest x-ray does not show any evidence for pneumothorax. His vitals are stable, afebrile, 97.8 degrees Fahrenheit, blood pressure 112/57 mmHg, pulse in the 70s. Head and neck examination normal. Heart sounds are normal. Lungs are clear to auscultation. Extremities are warm, no edema. ICD site is healing well. IMPRESSION: 1. Severe nonischemic cardiomyopathy. 2. Congestive heart failure class 2. 3. Nonsustained ventricular tachycardia. 4. Permanent atrial fibrillation. SUGGEST: Continue current medications without any changes. Continue anticoagulation lifelong and stop midodrine. ICD was interrogated and was within normal limits this morning. He may go home after completion of IV antibiotics. MMODL / IJN: [id number] /
[2017-05-21 12:16] LABS: Glucose,Whole Blood 91 mg/dL (75-99)
[2017-05-21 15:29] VITALS: BP 107/66; TEMP 97.9
[2017-05-21 16:20] VITALS: PULSE 84
[2017-05-21 17:14] LABS: Glucose,Whole Blood 103 mg/dL (75-99)
[2017-05-21] MEDS ORDERED: WARFARIN 3 MG TAB PO SCH (18:00)
[2017-05-23] MEDS ORDERED: NON-FORMULARY DRUG (Dulaglutide [Trulicity] 1.5 MG) SQ SCH (09:00)
== END 2017-05-21 18:29 | disposition home or self-care (01) ==
LOC: CATHEP 13:40 → 3OBS 19:34 → CATHEP 05-21 18:29
PROVIDERS: ATTEND Internal Medicine Clinical Cardiac Electrophysiology
DX: I42.0 Dilated cardiomyopathy (principal); I50.23 Acute on chronic systolic (congestive) heart failure; I11.0 Hypertensive heart disease with heart failure; I48.1 Persistent atrial fibrillation; I48.2 Chronic atrial fibrillation; I47.2 Ventricular tachycardia; Z00.6 Encounter for examination for normal comparison and control in clinical research program; E11.9 Type 2 diabetes mellitus without complications; E78.5 Hyperlipidemia, unspecified; N40.0 Benign prostatic hyperplasia without lower urinary tract symptoms; N28.9 Disorder of kidney and ureter, unspecified; J44.9 Chronic obstructive pulmonary disease, unspecified; Z99.81 Dependence on supplemental oxygen; F17.210 Nicotine dependence, cigarettes, uncomplicated; Z79.01 Long term (current) use of anticoagulants; Z79.82 Long term (current) use of aspirin; Z79.51 Long term (current) use of inhaled steroids; Z79.899 Other long term (current) drug therapy
CPT/HCPCS: 94640 ×4; 94760; 93641; 33249; 85610; 71020; C1895; C1722; J2250; J1200; J0690 ×3; J2001; J0131; J2704; Q9967

== ENCOUNTER → 2017-10-15 | Outpatient (CLI) | payer MEDICARE ==
--- NOTE | 2017-10-15 15:02 | US ---
EXAMINATION TYPE: US kidneys/renal and bladder DATE OF EXAM: 10/15/2017 COMPARISON: US CLINICAL HISTORY: N18.3 CKD stage 3. CKD EXAM MEASUREMENTS: Right Kidney: 11.0 x 5.7 x 5.5 cm Left Kidney: 10.9 x 5.6 x 4.6 cm Right Kidney: Kidney appeared wnl, possible small amount of fluid surrounding kidney mid to lower jaki e Left Kidney: Appeared wnl Bladder: Irregular posterior wall Bilateral Jets seen: No IMPRESSION: 1. There is some minimal fluid adjacent to the right kidney. Some acute renal failure may be present. 2. Prostate is prominent
== END | disposition home or self-care (01) ==
LOC: RADUSWWP 09:12
PROVIDERS: ATTEND Internal Medicine Nephrology
DX: N18.3 Chronic kidney disease, stage 3 (moderate) (principal)
CPT/HCPCS: 76770

== ENCOUNTER 2019-03-30 10:15 | Inpatient (IN) | payer MEDICARE ==
[2019-03-30 12:10] LABS: Glucose,Whole Blood 202 mg/dL (75-99)
[2019-03-30 14:08] VITALS: BMI 34.9
--- NOTE | 2019-03-30 14:41 | P.CRDCN ---
History of Present Illness History of present illness: This is a pleasant 68-year-old male past medical history significant for persistent atrial fibrillation on long-term anticoagulation, nonischemic cardiomyopathy, hypertension, dyslipidemia, COPD on home oxygen, chronic kidney disease, history of AICD implantation, diabetes mellitus and chronic nicotine dependence. He follows in the office with Dr. Mcnair. We have asked him in consultation secondary to shortness of breath. He states over the past 1-month he has been getting progressively short of breath and coughing. He states his shortness of breath is at rest as well as with exertion. He does have COPD and wears oxygen 24 hours/day. He has been taking increased doses of lasix at home and has noticed progressive increase in his weight. He denies PND or orthopnea. He has been coughing as well bringing up yellow/green sputum. He denies chest pain, palpitations, dizziness, nausea, vomiting or diaphoresis. Most recent echocardiogram obtained in the office January 2018 reveals impaired LV systolic function with ejection fraction 20-25%, mildly calcified aortic valve with trace aortic regurgitation, mildly dilated right ventricle, mild mitral regurgitation with an RVSP of 44 mmHg. At the time of my exam: CONSTITUTIONAL: Denies fever. Denies chills. EYES: Denies blurred vision. Denies vision changes. Denies eye pain. EARS, NOSE, MOUTH & THROAT: Denies headache. Denies sore throat. Denies ear pain. CARDIOVASCULAR: Denies chest pain. Complains of shortness of breath. Denies orthopnea. Denies PND. Denies palpitations. RESPIRATORY: Complains of cough. GASTROINTESTINAL: Denies abdominal pain. Denies diarrhea. Denies constipation. Denies nausea. Denies vomiting. MUSCULOSKELETAL: Denies myalgias. INTEGUMENTARY: Denies pruitis. Denies rash. NEUROLOGIC: Denies numbness. Denies tingling. Denies weakness. PSYCHIATRIC: Denies anxiety. Denies depression. ENDOCRINE: Denies fatigue. Denies weight change. Denies polydipsia. Denies polyurina. GENITOURINARY: Denies burning, hematuria or urgency with micturation. HEMATOLOGIC: Denies history of anemia. Denies bleeding. Blood pressure 101/60 157 afebrile maintaining oxygen saturation on room GENERAL: This is a 68-year-old male in no apparent distress at the time of my examination. HEENT: Head is atraumatic, normocephalic. Pupils are equal, round. Sclerae anicteric. Conjunctivae are clear. Mucous membranes of the mouth are moist. Neck is supple. There is no jugular venous distention. No carotid bruit is heard. LUNGS: Bibasilar rales, expiratory wheezes throughout, no rhonchi. No chest wall tenderness is noted on palpation or with deep breathing. Diminished bilaterally. HEART: Irregular rate and rhythm without murmurs, rubs or gallops. S1 and S2 heard. Distant heart sounds. ABDOMEN: Soft, nontender. Bowel sounds are heard. No organomegaly noted. EXTREMITIES: 2+ bilateral lower extremity pitting edema and no calf tenderness noted. VASCULAR: Radial and dorsalis pedis pulses palpated, no evidence of clubbing. NEUROLOGIC: Patient is awake, alert and oriented x3. ASSESSMENT Acute on chronic systolic heart failure Non-ischemic dilated cardiomyopathy status post AICD placement Hypertension Dyslipidemia Chronic persistent atrial fibrillation on long-term anticoagulation COPD PLAN Agree with IV diuresis, may increase based on renal function. Obtain chest xray and baseline EKG. Check CMP, PT/INR and proBNP. Resume home cardiac medications as previously ordered. Document intake and output along with daily weights. Further recommendations to follow based on clinical course. Thank you kindly for this consultation. Nurse Practitioner note has been reviewed, I agree with a documented findings and plan of care. Patient was seen and examined. Past Medical History Past Medical History: Atrial Fibrillation, Heart Failure, COPD, Diabetes Mellitus, Hyperlipidemia, Hypertension, Osteoarthritis (OA), Prostate Disorder, Renal Disease Additional Past Medical History / Comment(s): enlarged prostate,Stg 3 renal disease History of Any Multi-Drug Resistant Organisms: None Reported Past Surgical History: AICD, Heart Catheterization, Orthopedic Surgery Additional Past Surgical History / Comment(s): knee sx, hiatal hernia. Past Anesthesia/Blood Transfusion Reactions: Previous Problems w/ Anesthesia Additional Past Anesthesia/Blood Transfusion Reaction / Comment(s): no blood transfusion,woke up during knee surgery (surgery over 35 yrs ago) Type of Cardiac Device: AICD Device Placement Date:: 05/30 Past Psychological History: No Psychological Hx Reported Smoking Status: Current every day smoker Past Alcohol Use History: Rare Additional Past Alcohol Use History / Comment(s): started smoking at age 12,<1ppd Past Drug Use History: None Reported - Past Family History Mother Family Medical History: Cancer Father Family Medical History: Cancer Medications and Allergies Home Medications Medication Instructions Recorded Confirmed Type Fluticasone/Salmeterol [Advair 1 puff INHALATION RT-BID@0800,199901/03/17 03/30/19 History 250-50 Diskus] Ipratropium-Albuterol Nebulize 3 ml INHALATION 5XD 01/03/17 03/30/19 History [Duoneb 0.5 mg-3 mg/3 ml Soln] Rosuvastatin [Crestor] 10 mg PO HS@235801/03/17 03/30/19 History Tamsulosin HCl [Flomax] 0.4 mg PO HS@235801/03/17 03/30/19 History Tiotropium 18 Mcg/Puff [Spiriva] 1 cap INHALATION RT-DAILY@159901/03/17 03/30/19 History Warfarin Sodium [Coumadin] 4 mg PO SUMOWEFR@235801/03/17 03/30/19 History Dulaglutide [Trulicity] 1.5 mg SQ FR 05/19/17 03/30/19 History Febuxostat [Uloric] 40 mg PO DAILY@1600 05/19/17 03/30/19 History Furosemide [Lasix] 40 mg PO DAILY@0805/19/17 03/30/19 History Warfarin Sodium [Coumadin] 2 mg PO TUTHSA@235805/19/17 03/30/19 History Cholecalciferol [Vitamin D3 (25 1,000 unit PO BID@0800,0000 05/20/17 03/30/19 History Mcg = 1000 Iu)] Hydrocodone/Acetaminophen 1 tab PO Q6HR PRN 05/20/17 03/30/19 History [Hydrocodone/Acetaminophen 7.5-300] Metoprolol Succinate (ER) [Toprol 50 mg PO TID@0800,1600,0000 12/30/18 03/30/19 History XL] Sacubitril/Valsartan [Entresto 24 0.5 tab PO BID@0900,2100 12/30/18 03/30/19 History mg-26 mg Tablet] Aspirin EC [Ecotrin Low Dose] 81 mg PO DAILY@0800 03/30/19 03/30/19 History Calcitriol [Rocaltrol] 0.25 mcg PO MOTUWETH 03/30/19 03/30/19 History Ferrous Sulfate [Feosol] 325 mg PO DAILY@0800 03/30/19 03/30/19 History Allergies Allergy/AdvReac Type Severity Reaction Status Date / Time No Known Allergies Allergy Verified 03/30/19 11:51 Physical Exam Vitals: Vital Signs Temp Pulse BP Pulse Ox 03/30/19 12:00 98.2 F 57 L 101/61 94 L Intake and Output 03/29/19 03/30/19 03/30/19 22:59 06:59 14:59 Other: Voiding Method Toilet Weight 107.5 kg Results Current Medications Generic Name Dose Route Start Last Admin Trade Name Freq PRN Reason Stop Dose Admin Aspirin 81 mg 03/31/19 08:00 Aspirin PO DAILY@0800 [facility] Atorvastatin Calcium 20 mg 03/30/19 23:59 Lipitor PO HS@2359 [facility] Furosemide 40 mg 03/30/19 21:00 Lasix IV Q12HR [facility] Methylprednisolone Sodium Succinate 40 mg 03/30/19 16:00 Solu-Medrol IV Q8HR [facility] Metoprolol Succinate 50 mg 03/30/19 16:00 Toprol Xl PO TID@0800,1600,0000 [facility] Non-Formulary Medication 2 mg 03/30/19 23:59 Warfarin Sodium [Coumadin] PO TUTHSA@2359 [facility] Non-Formulary Medication 4 mg 03/31/19 23:59 Warfarin Sodium [Coumadin] PO SUMOWEFR@2359 [facility] Sacubitril/Valsartan 0.5 each 03/30/19 21:00 Entresto 24 Mg-26 Mg Tablet PO BID@0900,2100 [facility] Intake and Output 03/29/19 03/30/19 03/30/19 22:59 06:59 14:59 Other: Voiding Method Toilet Weight 107.5 kg Patient Weight 03/31/19 06:59 Weight 107.5 kg
[2019-03-30 15:14] LABS: INR 2.4 (<1.2); Prothrombin Time 23.5 sec (9.0-12.0)
--- NOTE | 2019-03-30 15:28 | XR ---
EXAMINATION TYPE: XR chest 2V DATE OF EXAM: 03/30/2019 COMPARISON: 05/21/2017 HISTORY: 68 year-old male shortness of breath TECHNIQUE: PA and lateral views FINDINGS: Heart upper limits of normal in size. Aorta within normal limits. Mild interstitial prominence, incre ased from prior. No oma consolidation or pleural effusion. Left anterior chest wall AICD generator with right ventricular lead. IMPRESSION: 1. Borderline heart size with increased interstitial and vascular densities. Correlate for possible m ild CHF. 2. No focal infiltrate or oma pulmonary edema.
[2019-03-30] MEDS: IPRATROPIUM-ALBUTEROL 3 ML NEB INHALATION SCH ×2 (15:30→19:20)
[2019-03-30 15:34] LABS: Albumin 3.7 g/dL (3.5-5.0); Calcium 8.9 mg/dL (8.4-10.2); Potassium 3.9 mmol/L (3.5-5.1); Total Bilirubin 0.4 mg/dL (0.2-1.3)
[2019-03-30] MEDS ORDERED: NON FORMULARY DRUG (Tiotropium 18 Mcg/Puff 1 CAP) INHALATION SCH (16:00)
[2019-03-30] MEDS: METOPROLOL SUCCINATE (ER) 50 MG TAB.ER.24H PO SCH ×3 (16:31→23:27)
[2019-03-30] MEDS: methylPREDNISolone SOD SUCCI 40 MG/ML 1 ML VIAL IV SCH ×2 (16:39→23:27)
[2019-03-30 16:57] LABS: Glucose,Whole Blood 161 mg/dL (75-99)
[2019-03-30] MEDS ORDERED: WARFARIN 2 MG TAB PO SCH (18:00)
[2019-03-30] MEDS: SYMBICORT 80-4.5 MCG INHALER INHALATION SCH (19:20)
[2019-03-30 20:24] LABS: Glucose,Whole Blood 212 mg/dL (75-99)
[2019-03-30] MEDS: FUROSEMIDE 10 MG/ML 4 ML VIAL IV SCH (20:40)
[2019-03-30] MEDS: SACUBITRIL/VALSARTAN 24 MG-26 MG TABLET PO SCH (20:40)
[2019-03-30] MEDS: WARFARIN 2 MG TAB PO SCH (23:27)
[2019-03-30] MEDS: ATORVASTATIN 20 MG TAB PO SCH (23:27)
[2019-03-31] MEDS: IPRATROPIUM-ALBUTEROL 3 ML NEB INHALATION SCH ×5 (02:56→19:49)
[2019-03-31 06:50] LABS: Glucose,Whole Blood 188 mg/dL (75-99)
[2019-03-31 07:03] LABS: INR 2.4 (<1.2); Prothrombin Time 23.3 sec (9.0-12.0)
[2019-03-31 07:25] LABS: Calcium 8.6 mg/dL (8.4-10.2); Potassium 3.6 mmol/L (3.5-5.1)
[2019-03-31] MEDS: SYMBICORT 80-4.5 MCG INHALER INHALATION SCH ×2 (07:47→19:49)
[2019-03-31] MEDS: FUROSEMIDE 10 MG/ML 4 ML VIAL IV SCH ×2 (08:10→20:11)
[2019-03-31] MEDS: SACUBITRIL/VALSARTAN 24 MG-26 MG TABLET PO SCH ×2 (08:10→20:10)
[2019-03-31] MEDS: ASPIRIN 81 MG PO SCH (08:11)
[2019-03-31] MEDS: METOPROLOL SUCCINATE (ER) 50 MG TAB.ER.24H PO SCH ×3 (08:11→23:42)
[2019-03-31] MEDS: methylPREDNISolone SOD SUCCI 40 MG/ML 1 ML VIAL IV SCH ×3 (08:11→23:42)
[2019-03-31] MEDS ORDERED: HYDROcodone/APAP 7.5-325MG 1 EACH TAB PO PRN (09:45)
[2019-03-31] MEDS: CALCITRIOL 0.25 MCG CAP PO SCH (10:23)
--- NOTE | 2019-03-31 11:13 | P.PN ---
Subjective This is a pleasant 68-year-old male past medical history significant for persistent atrial fibrillation on long-term anticoagulation, nonischemic cardiomyopathy, hypertension, dyslipidemia, COPD on home oxygen, chronic kidney disease, history of AICD implantation, diabetes mellitus and chronic nicotine dependence. He follows in the office with Dr. Mcnair. He is seen and examined sitting up in bed doing a breathing treatment. He states his breathing has improved slightly since admission and lower extremity swelling has gone down rubina e. Denies chest pain, dizziness or palpitations. Blood pressure 97/52 heart rate 62 afebrile and maintaining oxygen saturation on nasal cannula. Laboratory data reviewed, creatinine 2.43 down from 2.66 on admission, INR 2.4, proBNP 7190, sodium 140, potassium 3.6. He had 2100 cc of uring output yesterday. Chest xray revealed borderline heart size with increased interstitial vascular densities with no focal infiltrate or oma pulmonary edema. GENERAL: This is a 68-year-old male in no apparent distress at the time of my examination. HEENT: Head is atraumatic, normocephalic. Pupils are equal, round. Sclerae anicteric. Conjunctivae are clear. Mucous membranes of the mouth are moist. Neck is supple. There is no jugular venous distention. No carotid bruit is heard. LUNGS: Bibasilar rales, expiratory wheezes throughout, no rhonchi. No chest wall tenderness is noted on palpation or with deep breathing. Diminished bilaterally. HEART: Irregular rate and rhythm without murmurs, rubs or gallops. S1 and S2 heard. Distant heart sounds. EXTREMITIES: 1+ bilateral lower extremity pitting edema and no calf tenderness noted. ASSESSMENT Acute on chronic systolic heart failure, EF less than 20% Non-ischemic dilated cardiomyopathy status post AICD placement Hypertension Dyslipidemia Chronic persistent atrial fibrillation on long-term anticoagulation COPD Acute on chronic renal failure PLAN He is diuresing as expected with mildly impaired renal function, we will watch closely. Continue current medical regimen. Repeat renal function and electrolytes in the morning. Nurse Practitioner note has been reviewed, I agree with a documented findings and plan of care. Patient was seen and examined. Objective - Vital Signs Vital signs: Vital Signs Temp 98.4 F 03/31/19 07:40 Pulse 76 03/31/19 11:01 Resp 18 03/31/19 08:00 BP 97/52 03/31/19 07:40 Pulse Ox 93 L 03/31/19 07:40 Intake & Output 03/30/19 03/31/19 03/31/19 18:59 06:59 18:59 Intake Total 600 840 Output Total 200 1900 300 Balance 400 -1900 540 Weight 107.5 kg Intake: Oral 600 240 Other 600 Output: Urine 200 1900 300 Other: Voiding Method Toilet Toilet Toilet # Voids 1 - Labs CBC & Chem 7: 03/31/19 06:25 Labs: Abnormal Lab Results - Last 24 Hours (Table) 03/30/19 03/30/19 03/30/19 Range/Units 12:09 14:43 14:43 PT 23.5 H (9.0-12.0) sec INR 2.4 H (<1.2) Chloride 88 L (98-107) mmol/L Carbon Dioxide 46 H* (22-30) mmol/L BUN 70 H (9-20) mg/dL Creatinine 2.66 H (0.66-1.25) mg/dL Glucose 133 H (74-99) mg/dL POC Glucose (mg/dL) 202 H (75-99) mg/dL Alkaline Phosphatase 31 L (38-126) U/L Total Protein 6.0 L (6.3-8.2) g/dL 03/30/19 03/30/19 03/31/19 Range/Units 16:56 20:12 06:25 PT 23.3 H (9.0-12.0) sec INR 2.4 H (<1.2) Chloride (98-107) mmol/L Carbon Dioxide (22-30) mmol/L BUN (9-20) mg/dL Creatinine (0.66-1.25) mg/dL Glucose (74-99) mg/dL POC Glucose (mg/dL) 161 H 212 H (75-99) mg/dL Alkaline Phosphatase (38-126) U/L Total Protein (6.3-8.2) g/dL 03/31/19 03/31/19 Range/Units 06:25 06:47 PT (9.0-12.0) sec INR (<1.2) Chloride 93 L (98-107) mmol/L Carbon Dioxide 41 H* (22-30) mmol/L BUN 66 H (9-20) mg/dL Creatinine 2.43 H (0.66-1.25) mg/dL Glucose 171 H (74-99) mg/dL POC Glucose (mg/dL) 188 H (75-99) mg/dL Alkaline Phosphatase (38-126) U/L Total Protein (6.3-8.2) g/dL
[2019-03-31 11:49] LABS: Glucose,Whole Blood 372 mg/dL (75-99)
--- NOTE | 2019-03-31 12:03 | ECHOF ---
Referral Reason:sob MEASUREMENTS -------- HEIGHT: 175.3 cm WEIGHT: 107.0 kg BP: 101/61 RVIDd: 5.1 cm (< 3.3) IVSd: 0.9 cm (0.6 - 1.1) LVIDd: 5.2 cm (3.9 - 5.3) LVPWd: 1.1 cm (0.6 - 1.1) IVSs: 1.2 cm LVIDs: 4.7 cm LVPWs: 1.0 cm LA Diam: 5.0 cm (2.7 - 3.8) LAESV Index (A-L): 51.95 ml/m Ao Diam: 2.9 cm (2.0 - 3.7) AV Cusp: 1.7 cm (1.5 - 2.6) LA Diam: 4.3 cm (2.7 - 3.8) MV EXCURSION: 19.913 mm (> 18.000) MV EF SLOPE: 63 mm/s (70 - 150) EPSS: 1.8 cm MV E Charles: 1.24 m/s MV DecT: 190 ms MV A Charles: 0.64 m/s MV E/A Ratio: 1.93 RAP: 15.00 mmHg RVSP: 66.61 mmHg FINDINGS -------- Paced rhythm. Pacerwire seen in RV and RA. This was a technically adequate study. The left ventricular size is normal. Left ventricular wall thickness is normal. There is severe g lobal hypokinesis of LV . Overall left ventricular systolic function is severely impaired with, an EF between 20 - 25 %. Left ventricular fillimg pressure cannot be estimated due to paced rhythm. Increased Grade III Diastolic Dysfunction. The right ventricle is severely enlarged. The right ventricular systolic function is at the low end of normal. LA is severely dilated >40 ml/m2 The right atrial size is normal. 5.0mg OF Lumason UTLIZED: 2 OR MORE WALL SEGMENTS NOT VISUALIZED. There is mild aortic valve sclerosis. There is no evidence of aortic regurgitation. Mild mitral annular calcification present. Moderate mitral regurgitation is present. [id number] tricuspid regurgitation present. There is moderate to severe pulmonary hypertensio n. The right ventricular systolic pressure, as measured by Doppler, is 66.61mmHg. Trace/mild (physiologic) pulmonic regurgitation. The aortic root size is normal. There is no pericardial effusion. CONCLUSIONS -------- 1. Paced rhythm. 2. Pacerwire seen in RV and RA. 3. This was a technically adequate study. 4. The left ventricular size is normal. 5. Left ventricular wall thickness is normal. 6. There is severe global hypokinesis of LV . 7. Overall left ventricular systolic function is severely impaired with, an EF between 20 - 25 %. 8. Left ventricular fillimg pressure cannot be estimated due to paced rhythm. 9. Increased Grade III Diastolic Dysfunction. 10. The right ventricle is severely enlarged. 11. The right ventricular systolic function is at the low end of normal. 12. LA is severely dilated >40 ml/m2 13. 5.0mg OF Lumason UTLIZED: 2 OR MORE WALL SEGMENTS NOT VISUALIZED. 14. There is mild aortic valve sclerosis. 15. Mild mitral annular calcification present. 16. Moderate mitral regurgitation is present. 17. [id number] tricuspid regurgitation present. 18. There is moderate to severe pulmonary hypertension. 19. Trace/mild (physiologic) pulmonic regurgitation. 20. The aortic root size is normal. 21. There is no pericardial effusion. EMPLOYMENT MANAGER: Lorie Johns RDCS
--- NOTE | 2019-03-31 13:55 | HP ---
HISTORY AND PHYSICAL A 68-year-old white male, atrial fibrillation, ischemic cardiomyopathy, hypertension, COPD on home oxygen, developed worsening dyspnea and shortness of breath over the last 1-2 weeks at which time he was admitted with COPD exacerbation and congestive heart failure with exertional dyspnea, unable to take care of himself at home or to maintain himself in his house. He has increasing doses of Lasix at home, previous increase in his weight and gained 25 pounds in 4 months, coughing up green-yellow sputum. Last echo January of 2018 shows 20% to 25% ejection fraction. He is admitted with worsening congestive heart failure with weight gain and COPD exacerbation, rule out pneumonia. 14 POINT REVIEW OF SYSTEMS: As mentioned above, otherwise negative. Blood pressure is low 100s/60s, 2 L oxygen 90% to 92%, on 3 L oxygen is 92 % to 93%. HEAD: Normocephalic, atraumatic. LUNGS: Scattered wheeze and rhonchi and rales x4 lung taveras. HEART: S1, S2. ABDOMEN: Soft, distended, due to obesity. EXTREMITIES: 2+ pitting edema. VASCULAR: Renal dorsalis pedis palpated. No clubbing. NEUROLOGIC: Cranial nerves are intact. ASSESSMENT: Acute on chronic systolic heart failure, chronic obstructive pulmonary disease exacerbation, nonischemic cardiomyopathy, AICD, hypertension, dyslipidemia, chronic persistent atrial fibrillation. IV diuresis. Monitor renal function. Possible CAT scan of his lungs. Pulmonary and Cardiology consults. MMODL / IJN: [id number] /
--- NOTE | 2019-03-31 14:51 | CT ---
EXAMINATION TYPE: CT chest wo con DATE OF EXAM: 03/31/2019 COMPARISON: Chest x-ray from yesterday HISTORY: COPD Exacerbation with new dyspnea CT DLP: 694.3 mGycm. Automated Exposure Control for Dose Reduction was Utilized. TECHNIQUE: CT scan of the thorax is performed without IV contrast. FINDINGS: Exam suboptimal as there is respiratory motion artifact degradation particularly in the nessa g bases LUNGS: Patchy right greater than left bibasilar opacities. Some scattered micronodules. For reference 2-3 lesions axial image 32 right lung. No pleural effusion or pneumothorax. No focal consolidation. No pleural effusion or pneumothorax. Mild central peribronchial wall thickening. MEDIASTINUM: Lack of IV contrast is noted to limit evaluation for mediastinal and especially hilar ad enopathy. There are no definitive greater than 1 cm hilar or mediastinal lymph nodes. No pericardia l effusion is seen. Heart size upper limits of normal. Right ventricular pacemaker/defibrillator. Mod erate to severe coronary artery calcification and/or stents. OTHER: Nonspecific 1.9 cm rounded low dense lesion right hepatic lobectomy 58, Hounsfield units great er than fluid. Consider further investigation with multiphase contrast-enhanced CT or ultrasound. Mil [id number]-[id number] perinephric fluid is nonspecific finding present on the basis of product of chronic med ical renal disease. Moderate multilevel spurring in the thoracic spine with scoliotic curvature. IMPRESSION: Possible acute bronchitis with mild central peribronchial wall thickening. Correlate clin ically. Patchy bibasilar atelectasis and/or infiltrate. No CT evidence for CHF exacerbation
[2019-03-31] MEDS: ALLOPURINOL 100 MG TAB PO SCH (16:18)
[2019-03-31 16:49] LABS: Glucose,Whole Blood 162 mg/dL (75-99)
[2019-03-31] MEDS: WARFARIN 2 MG TAB PO SCH ×2 (16:51→23:42)
[2019-03-31] MEDS: INSULIN ASPART (NovoLOG) 100 UNIT/ML VIAL SQ SCH ×2 (16:59→20:10)
[2019-03-31 18:52] LABS: Glucose,Whole Blood 238 mg/dL (75-99)
[2019-03-31 19:44] LABS: Glucose,Whole Blood 308 mg/dL (75-99)
[2019-03-31] MEDS: CHOLECALCIFEROL 1,000 UNIT TAB PO SCH (23:42)
[2019-03-31] MEDS: TAMSULOSIN 0.4 MG CAP.ER.24H PO SCH (23:42)
[2019-03-31] MEDS: ATORVASTATIN 20 MG TAB PO SCH (23:42)
[2019-04-01] MEDS: IPRATROPIUM-ALBUTEROL 3 ML NEB INHALATION SCH ×6 (01:20→23:07)
[2019-04-01 06:20] LABS: Calcium 8.5 mg/dL (8.4-10.2); Potassium 3.6 mmol/L (3.5-5.1)
[2019-04-01 06:36] LABS: Glucose,Whole Blood 211 mg/dL (75-99)
[2019-04-01] MEDS: SYMBICORT 80-4.5 MCG INHALER INHALATION SCH ×2 (07:27→19:48)
[2019-04-01] MEDS: methylPREDNISolone SOD SUCCI 40 MG/ML 1 ML VIAL IV SCH ×2 (08:12→15:09)
[2019-04-01] MEDS: INSULIN ASPART (NovoLOG) 100 UNIT/ML VIAL SQ SCH ×4 (08:12→21:10)
[2019-04-01] MEDS: ASPIRIN 81 MG PO SCH (08:12)
[2019-04-01] MEDS: CHOLECALCIFEROL 1,000 UNIT TAB PO SCH ×2 (08:12→23:24)
[2019-04-01] MEDS: FERROUS SULFATE 325 MG TAB PO SCH (08:12)
[2019-04-01] MEDS: METOPROLOL SUCCINATE (ER) 50 MG TAB.ER.24H PO SCH ×3 (08:13→23:23)
[2019-04-01] MEDS: SACUBITRIL/VALSARTAN 24 MG-26 MG TABLET PO SCH ×2 (09:57→21:09)
[2019-04-01] MEDS: CALCITRIOL 0.25 MCG CAP PO SCH (09:57)
[2019-04-01] MEDS: FUROSEMIDE 10 MG/ML 4 ML VIAL IV SCH (09:57)
--- NOTE | 2019-04-01 10:47 | P.PN ---
Subjective This is a pleasant 68-year-old male past medical history significant for persistent atrial fibrillation on long-term anticoagulation, nonischemic cardiomyopathy, hypertension, dyslipidemia, COPD on home oxygen, chronic kidney disease, history of AICD implantation, diabetes mellitus and chronic nicotine dependence. He follows in the office with Dr. Mcnair. He is seen and examined sitting up in bed in no acute distress. Overall his breathing has improved and lower extremity edema is almost completely gone. He denies chest pain, dizziness or palpitations. Blood pressure 92/60 heart rate 62 afebrile and maintaining oxygen saturation on nasal cannula. Laboratory data reviewed, sodium 138, potassium 3.6, creatinine 2.2. GENERAL: This is a 68-year-old male in no apparent distress at the time of my examination. HEENT: Head is atraumatic, normocephalic. Pupils are equal, round. Sclerae anicteric. Conjunctivae are clear. Mucous membranes of the mouth are moist. Neck is supple. There is no jugular venous distention. No carotid bruit is heard. LUNGS: Expiratory wheezes, no rales or rhonchi. No chest wall tenderness is n oted on palpation or with deep breathing. Diminished bilaterally. HEART: Irregular rate and rhythm without murmurs, rubs or gallops. S1 and S2 heard. Distant heart sounds. EXTREMITIES: Trace ongoing edema to left lower extremity, no edema on the right. No calf tenderness noted. ASSESSMENT Acute on chronic systolic heart failure, EF less than 20% Non-ischemic dilated cardiomyopathy status post AICD placement Hypertension Dyslipidemia Chronic persistent atrial fibrillation on long-term anticoagulation COPD Acute on chronic renal failure PLAN Transition to oral diuretics this afternoon. Increase activity and assess for improvement in exertional shortness of breath. Stable for discharge this afternoon. Follow up in the office in 1-week. Nurse Practitioner note has been reviewed, I agree with a documented findings and plan of care. Patient was seen and examined. Objective - Vital Signs Vital signs: Vital Signs Temp 98.0 F 04/01/19 07:02 Pulse 66 04/01/19 07:40 Resp 18 04/01/19 07:02 BP 92/60 04/01/19 07:02 Pulse Ox 93 L 04/01/19 07:02 Intake & Output 03/31/19 04/01/19 04/01/19 18:59 06:59 18:59 Intake Total 1080 200 Output Total 620 1500 Balance 460 -1500 200 Weight 106.2 kg Intake: Oral 480 200 Other 600 Output: Urine 620 1500 Other: Voiding Method Toilet Toilet Toilet - Labs CBC & Chem 7: 04/01/19 05:28 Labs: Abnormal Lab Results - Last 24 Hours (Table) 03/31/19 03/31/19 03/31/19 Range/Units 11:47 16:48 18:49 Chloride (98-107) mmol/L Carbon Dioxide (22-30) mmol/L BUN (9-20) mg/dL Creatinine (0.66-1.25) mg/dL Glucose (74-99) mg/dL POC Glucose (mg/dL) 372 H 162 H 238 H (75-99) mg/dL 03/31/19 04/01/19 04/01/19 Range/Units 19:42 05:28 06:34 Chloride 91 L (98-107) mmol/L Carbon Dioxide 38 H (22-30) mmol/L BUN 69 H (9-20) mg/dL Creatinine 2.20 H (0.66-1.25) mg/dL Glucose 185 H (74-99) mg/dL POC Glucose (mg/dL) 308 H 211 H (75-99) mg/dL
[2019-04-01 11:39] LABS: Glucose,Whole Blood 207 mg/dL (75-99)
--- NOTE | 2019-04-01 13:41 | P.GSCN ---
History of Present Illness Consult date: 04/01/19 Reason for Consult: hernia Requesting physician: Stacie Barillas History of present illness: CHIEF COMPLAINT: hernia HISTORY OF PRESENT ILLNESS: 68-year-old male who was admitted to the hospital secondary to COPD. General surgery was consulted to evaluate patient's abdominal hernia. Patient examined this morning at the bedside. He reports feeling a bulge in his abdomen for the last few months. He denies any abdominal pain. He states occasional discomfort in the area when he is coughing. Denies nausea or vomiting. Denies diarrhea or constipation. PAST MEDICAL HISTORY: See list. PAST SURGICAL HISTORY: See list. SOCIAL HISTORY: No illicit drug use. REVIEW OF SYSTEMS: CONSTITUTIONAL: Denies fever or chills. HEENT: Denies blurred vision, vision changes, or eye pain. Denies hemoptysis CARDIOVASCULAR: Denies chest pain or pressure. RESPIRATORY: No shortness of breath. GASTROINTESTINAL: Refer to HPI for pertinent findings HEMATOLOGIC: Denies bleeding disorders. GENITOURINARY: Denies any blood in urine. SKIN: Denies pruitis. Denies rash. PHYSICAL EXAM: VITAL SIGNS: Reviewed. GENERAL: Well-developed in no acute distress. HEENT: No sclera icterus. Extraocular movements grossly intact. Moist buccal mucosa. Head is atraumatic, normocephalic. ABDOMEN: Soft. Nondistended. Obese. Nontender. Ventral hernia noted. NEUROLOGIC: Alert and oriented. Cranial nerves II through XII grossly intact. ASSESSMENT: 1. Ventral hernia PLAN: No immediate surgical intervention recommended May utilize abdominal binder for comfort and extra support on his hernia as he is coughing frequently Patient may follow up outpatient with Dr. Mcmahon to discuss elective hiatal h ernia repair Nurse practitioner note has been reviewed by physician. Signing provider agrees with the documented findings, assessment, and plan of care. Past Medical History Past Medical History: Atrial Fibrillation, Heart Failure, COPD, Diabetes Mellitus, Hyperlipidemia, Hypertension, Osteoarthritis (OA), Prostate Disorder, Renal Disease Additional Past Medical History / Comment(s): enlarged prostate,Stg 3 renal disease History of Any Multi-Drug Resistant Organisms: None Reported Past Surgical History: AICD, Heart Catheterization, Orthopedic Surgery Additional Past Surgical History / Comment(s): knee sx, hiatal hernia. Past Anesthesia/Blood Transfusion Reactions: Previous Problems w/ Anesthesia Additional Past Anesthesia/Blood Transfusion Reaction / Comm: no blood transfus ion,woke up during knee surgery (surgery over 35 yrs ago) Type of Cardiac Device: AICD Device Placement Date:: 05/30 Past Psychological History: No Psychological Hx Reported Smoking Status: Current every day smoker Past Alcohol Use History: Rare Additional Past Alcohol Use History / Comment(s): started smoking at age 12,<1ppd Past Drug Use History: None Reported - Past Family History Mother Family Medical History: Cancer Father Family Medical History: Cancer Medications and Allergies Home Medications Medication Instructions Recorded Confirmed Type Fluticasone/Salmeterol [Advair 1 puff INHALATION RT-BID@0800,199901/03/17 03/30/19 History 250-50 Diskus] Ipratropium-Albuterol Nebulize 3 ml INHALATION 5XD 01/03/17 03/30/19 History [Duoneb 0.5 mg-3 mg/3 ml Soln] Rosuvastatin [Crestor] 10 mg PO HS@235801/03/17 03/30/19 History Tamsulosin HCl [Flomax] 0.4 mg PO HS@23501/03/17 03/30/19 History Tiotropium 18 Mcg/Puff [Spiriva] 1 cap INHALATION RT-DAILY@159901/03/17 03/30/19 History Warfarin Sodium [Coumadin] 4 mg PO SUMOWEFR@235801/03/17 03/30/19 History Dulaglutide [Trulicity] 1.5 mg SQ FR 05/19/17 03/30/19 History Febuxostat [Uloric] 40 mg PO DAILY@1600 05/19/17 03/30/19 History Furosemide [Lasix] 40 mg PO DAILY@0800 05/19/17 03/30/19 History Warfarin Sodium [Coumadin] 2 mg PO TUTHSA@2359 05/19/17 03/30/19 History Cholecalciferol [Vitamin D3 (25 1,000 unit PO BID@0800,0000 05/20/17 03/30/19 History Mcg = 1000 Iu)] Hydrocodone/Acetaminophen 1 tab PO Q6HR PRN 05/20/17 03/30/19 History [Hydrocodone/Acetaminophen 7.5-300] Metoprolol Succinate (ER) [Toprol 50 mg PO TID@0800,1600,0000 12/30/18 03/30/19 History XL] Sacubitril/Valsartan [Entresto 24 0.5 tab PO BID@0900,2100 12/30/18 03/30/19 History mg-26 mg Tablet] Aspirin EC [Ecotrin Low Dose] 81 mg PO DAILY@0800 03/30/19 03/30/19 History Calcitriol [Rocaltrol] 0.25 mcg PO MOTUWETH 03/30/19 03/30/19 History Ferrous Sulfate [Feosol] 325 mg PO DAILY@0803/30/19 03/30/19 History Allergies Allergy/AdvReac Type Severity Reaction Status Date / Time No Known Allergies Allergy Verified 03/30/19 11:51 Surgical - Exam Vital Signs Temp Pulse BP Pulse Ox 98.2 F 57 L 101/61 94 L 03/30/19 12:00 03/30/19 12:00 03/30/19 12:00 03/30/19 12:00 Results - Labs 04/01/19 05:28 Abnormal Lab Results - Last 24 Hours (Table) 03/31/19 03/31/19 03/31/19 Range/Units 16:48 18:49 19:42 Chloride (98-107) mmol/L Carbon Dioxide (22-30) mmol/L BUN (9-20) mg/dL Creatinine (0.66-1.25) mg/dL Glucose (74-99) mg/dL POC Glucose (mg/dL) 162 H 238 H 308 H (75-99) mg/dL 04/01/19 04/01/19 04/01/19 Range/Units 05:28 06:34 11:37 Chloride 91 L (98-107) mmol/L Carbon Dioxide 38 H (22-30) mmol/L BUN 69 H (9-20) mg/dL Creatinine 2.20 H (0.66-1.25) mg/dL Glucose 185 H (74-99) mg/dL POC Glucose (mg/dL) 211 H 207 H (75-99) mg/dL Diabetes panel 04/01/19 Range/Units 05:28 Sodium 138 (137-145) mmol/L Potassium 3.6 (3.5-5.1) mmol/L Chloride 91 L (98-107) mmol/L Carbon Dioxide 38 H (22-30) mmol/L BUN 69 H (9-20) mg/dL Creatinine 2.20 H (0.66-1.25) mg/dL Glucose 185 H (74-99) mg/dL Calcium 8.5 (8.4-10.2) mg/dL Calcium panel 04/01/19 Range/Units 05:28 Calcium 8.5 (8.4-10.2) mg/dL Pituitary panel 04/01/19 Range/Units 05:28 Sodium 138 (137-145) mmol/L Potassium 3.6 (3.5-5.1) mmol/L Chloride 91 L (98-107) mmol/L Carbon Dioxide 38 H (22-30) mmol/L BUN 69 H (9-20) mg/dL Creatinine 2.20 H (0.66-1.25) mg/dL Glucose 185 H (74-99) mg/dL Calcium 8.5 (8.4-10.2) mg/dL Adrenal panel 04/01/19 Range/Units 05:28 Sodium 138 (137-145) mmol/L Potassium 3.6 (3.5-5.1) mmol/L Chloride 91 L (98-107) mmol/L Carbon Dioxide 38 H (22-30) mmol/L BUN 69 H (9-20) mg/dL Creatinine 2.20 H (0.66-1.25) mg/dL Glucose 185 H (74-99) mg/dL Calcium 8.5 (8.4-10.2) mg/dL
[2019-04-01] MEDS: AZITHROMYCIN 500 MG in SODIUM CHLORIDE 0.9% 250 ML IVPB SCH (15:08)
[2019-04-01] MEDS: ALLOPURINOL 100 MG TAB PO SCH (15:09)
[2019-04-01] MEDS: FUROSEMIDE 40 MG TAB PO SCH (15:09)
[2019-04-01 16:28] LABS: Glucose,Whole Blood 274 mg/dL (75-99)
[2019-04-01 19:56] LABS: Glucose,Whole Blood 295 mg/dL (75-99)
[2019-04-01] MEDS: MONTELUKAST 10 MG TAB PO SCH (21:09)
[2019-04-01] MEDS: FAMOTIDINE 20 MG TAB PO SCH (21:09)
--- NOTE | 2019-04-01 22:53 | PN ---
PROGRESS NOTE 68-year-old white male admitted with tracheobronchitis, COPD exacerbation, congestive heart failure. Remains on IV Lasix for diuresis. Still short of breath with any exertion. He will be treated with Rocephin and azithromycin as he still has shortness of breath, cough, congestion, possible tracheobronchitis versus pneumonia. BUN is 69, creatinine is 2.2. Lungs show scattered rhonchi and wheeze x4. Hematology negative Homans. ASSESSMENT: 1. Tracheobronchitis. 2. Chronic obstructive pulmonary disease exacerbation. 3. Possible community-acquired pneumonia. 4. Clinically worsening congestive heart failure responding to IV Lasix. Continue with Rocephin and azithromycin. Pulmonary consult. IV Solu-Medrol. Updraft treatments. Discharge when pulmonary breathing improves. MMLESLIEL / IJN: [id number] /
[2019-04-01] MEDS: TAMSULOSIN 0.4 MG CAP.ER.24H PO SCH (23:23)
[2019-04-01] MEDS: ATORVASTATIN 20 MG TAB PO SCH (23:23)
[2019-04-01] MEDS: WARFARIN 2 MG TAB PO SCH (23:24)
--- NOTE | 2019-04-02 00:08 | CONS ---
CONSULTATION Stephen Mcknight is a 68-year-old male who presented to his primary care physician's office with increasing shortness of breath. He also had been coughing up some yellow- green phlegm. He denied any fever or chills and had a 25 pounds weight gain in the last 4 months. He was seen by his primary care physician and admitted for further evaluation and management. PAST MEDICAL HISTORY: Positive for a diagnosis of COPD with frequent exacerbations. No clear history of asthma, history of persistent atrial fibrillation, history of cardiomyopathy with an ejection fraction in the 20-25 percent range, history of elevated right ventricular systolic pressure. History of AICD placement. History of diabetes mellitus type 2, history of chronic nicotine dependence. FAMILY HISTORY: Positive for cancer in both his parents. SOCIAL HISTORY: The patient started smoking at age 12. He smokes about 5-6 cigarettes a day at this time. 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 MEDICATIONS: Prior to admission were warfarin, tiotropium, Flomax, and Entresto, Crestor, Toprol-XL, DuoNeb, hydrocodone with acetaminophen, Lasix, Advair Diskus, Feosol, Uloric, Trulicity, cholecalciferol, calcitriol, and aspirin EC. REVIEW OF SYSTEMS: Noncontributory. PHYSICAL EXAMINATION: Respiratory rate is 18, pulse rate of 51, temperature 97.8, blood pressure 96/57, O2 saturation on 3 L by nasal cannula is 95%. HEENT reveals pupils are equal. There is redundant tissue in the posterior pharynx. Chest reveals decreased breath sounds. Prolonged exhalation with expiratory wheezing. Cardiovascular system is S1, S2. Systolic murmur is heard. ABDOMEN: Soft, positive with some prominence of the anterior abdominal wall and 1+ to 2+ pedal edema. LABS: Reveal a PT/INR of 2.4. Sodium 143, potassium 3.9, chloride 88, bicarb 46, BUN 70, creatinine 2.66. NT proBNP of 7190. CT scan of the chest was reviewed and showed some patchy bibasilar opacities, scattered micronodules with no pleural effusion. IMPRESSION: At this time: 1. Dyspnea secondary to asthma with chronic obstructive pulmonary disease with acute exacerbation. 2. Possible pneumoconiosis. 3. Congestive heart failure with cardiomyopathy. 4. Possible obstructive sleep apnea. 5. Acute on chronic respiratory failure with metabolic alkalosis, reflecting possible hypercarbia. PLAN: At this point in time from a pulmonary standpoint: I agree with keeping him on IV steroids, but we will increase the dose to 60 mg IV push q.6. Keep him in negative fluid balance. Optimize his anticoagulation. Keep him on bronchodilators and aerosolized steroids. As he is diabetic, would add montelukast to his regimen in the hopes of decreasing his insulin use by decreasing his need for systemic steroids. He was counseled regarding his condition and this approach and has a fair understanding of our recommendations. We would be happy to see him in the outpatient setting and may be a candidate in fact for pulmonary rehab as well. MMODL / IJN: [id number] /
[2019-04-02 06:46] LABS: Glucose,Whole Blood 188 mg/dL (75-99)
[2019-04-02] MEDS: SACUBITRIL/VALSARTAN 24 MG-26 MG TABLET PO SCH ×2 (08:01→21:43)
[2019-04-02] MEDS: FUROSEMIDE 40 MG TAB PO SCH ×2 (08:01→16:57)
[2019-04-02] MEDS: FERROUS SULFATE 325 MG TAB PO SCH (08:01)
[2019-04-02] MEDS: CHOLECALCIFEROL 1,000 UNIT TAB PO SCH (08:01)
[2019-04-02] MEDS: METOPROLOL SUCCINATE (ER) 50 MG TAB.ER.24H PO SCH ×2 (08:01→17:55)
[2019-04-02] MEDS: ASPIRIN 81 MG PO SCH (08:01)
[2019-04-02] MEDS: INSULIN ASPART (NovoLOG) 100 UNIT/ML VIAL SQ SCH ×4 (08:01→21:20)
[2019-04-02] MEDS: AZITHROMYCIN 500 MG in SODIUM CHLORIDE 0.9% 250 ML IVPB SCH (08:02)
[2019-04-02] MEDS: IPRATROPIUM-ALBUTEROL 3 ML NEB INHALATION SCH ×5 (08:24→23:34)
[2019-04-02] MEDS ORDERED: NON FORMULARY DRUG (Dulaglutide [Trulicity] 1.5 MG) SQ SCH (09:45)
--- NOTE | 2019-04-02 10:27 | PN ---
PROGRESS NOTE Mr. Mcknight is a 68-year-old male with a known history of severe cardiomyopathy, history of ICD implantation, chronic persistent atrial fibrillation who presented with worsening dyspnea and peripheral edema. He has a history of chronic obstructive lung disease. He is feeling better today. He still has dyspnea, although better. He denies any dizziness or palpitation. He denies any nausea. He was seen by Dr. Hagan in regard to his lung status. He continues to be on aspirin once a day, Lipitor 20 mg daily, Lasix 40 mg twice a day, metoprolol succinate 50 mg 3 times a day, and Entresto 24-26 mg twice a day in addition to Coumadin. PHYSICAL EXAMINATION: Blood pressure 101/60 with the heart rate in the 70s. LUNGS: With decreased air exchange, no wheezes. HEART: Irregular, irregular. S1, S2. No S3. No rub. ABDOMEN: Soft and nontender, obese. EXTREMITIES: No significant edema with chronic discoloration. LAB DATA: Lab data revealed a magnesium of 2.0. IMPRESSION: 1. Symptoms of progressive dyspnea with a combination of exacerbation of congestive heart failure with severe cardiomyopathy and evidence of chronic obstructive pulmonary disease. 2. Chronic persistent atrial fibrillation, anticoagulated. 3. Nonischemic cardiomyopathy, status post ICD implantation. 4. Hypertension. 5. Hyperlipidemia. 6. Chronic kidney disease. RECOMMENDATION: From the cardiac standpoint, we will continue present therapy. I would expect he should be able to be discharged home soon. We will see him on as-needed basis. Please feel free to call us for any question. MMODL / IJN: [id number] /
--- NOTE | 2019-04-02 10:34 | P.PN ---
Subjective Progress Note Date: 04/02/19 This is 68-year-old gentleman admitted with acute on chronic systolic CHF, acute on chronic renal failure, tracheobronchitis, COPD exacerbation, possible community-acquired pneumonia, ongoing nicotine dependence and multiple other medical issues. Diuresing well on Lasix with 24-hour I&O reflecting a negative fluid balance. Labs pending. Maintained on Zithromax, Rocephin, IV steroids with breathing /shortness of breath slowly improving. Vital signs stable, maintaining O2 sats in the 90s on 3 L nasal cannula. Denies abdominal pain. Denies chest pain, palpitations. Objective - Vital Signs Vital signs: Vital Signs Temp 97.5 F L 04/02/19 07:25 Pulse 74 04/02/19 08:36 Resp 18 04/02/19 07:25 BP 101/65 04/02/19 07:25 Pulse Ox 93 L 04/02/19 07:25 Intake & Output 04/01/19 04/02/19 04/02/19 18:59 06:59 18:59 Intake Total 680 400 Output Total 1325 675 300 Balance -645 -275 -300 Weight 106 kg 105 kg Intake: Oral 680 400 Output: Urine 1325 675 300 Other: Voiding Method Toilet Toilet Toilet - Exam PHYSICAL EXAM: VITAL SIGNS: As above GENERAL: Sitting up in bed, no acute distress HEENT: Conjunctivae normal. eyes normal. Oral mucosa moist NECK: No JVD. No thyroid enlargement. No LNs CARDIOVASCULAR: S1, S2 regular.. No murmur RESPIRATION: Breath sounds diminished in the bases. Scattered rhonchi, no crackles, expiratory wheezing ABDOMEN: Soft, nontender . Ventral hernia noted, abdominal binder present. No guarding. no masses palpable.Bowel sounds heard. LEGS: No edema. no swelling PSYCHIATRY: Alert and oriented X3, mood and affect normal. NERVOUS SYSTEM: Cranial N 2-12 grossly normal. Moves all 4 limbs. No focal deficits. Strength and sensation grossly intact.. Skin: no lesions, no rash. No calf tenderness - Labs CBC & Chem 7: 04/01/19 05:28 Labs: Abnormal Lab Results - Last 24 Hours (Table) 04/01/19 04/01/19 04/01/19 Range/Units 11:37 16:26 19:29 POC Glucose (mg/dL) 207 H 274 H 295 H (75-99) mg/dL 04/02/19 Range/Units 06:43 POC Glucose (mg/dL) 188 H (75-99) mg/dL Assessment and Plan Assessment: -Acute on chronic CHF, systolic dysfunction, EF less than 20% -AICD, nonischemic dilated cardiomyopathy -Chronic persistent atrial fibrillation -Acute COPD exacerbation, tracheobronchitis and possible community-acquired pneumonia -Ventral hernia, further follow-up outpatient -Hypertension -Hyperlipidemia -Acute on chronic renal failure, stage III -Ongoing nicotine dependence -Acute on chronic hypoxic, hypercapnic respiratory failure Plan: Continue current medication regime ,monitoring and symptomatic treatment. Labs pending .Aggressive pulmonary toileting. Maintain nebulized bronchodilators, antibiotics, systemic steroids. Cleared by cardiology for discharge. Follow closely with pulmonary. Discharge planning in progress pending pulmonary improvement. The impression and plan of care has been dictated as directed. : I performed a history and examination of this patient, discussed the same with the dictator. I agree with the dictator's note ,documented as a scribe. Any additional findings or plans will be noted.
[2019-04-02 11:36] LABS: Glucose,Whole Blood 220 mg/dL (75-99)
[2019-04-02 11:38] LABS: Basophils % (A) 0 %; Eosinophils % (A) 0 %; HCT 28.2 % (39.0-53.0); Hypochromasia Slight; Lymphocytes # (A) 0.2 k/uL (1.0-4.8); Lymphocytes % (A) 2 %; MCH 32.5 pg (25.0-35.0); MCHC 31.9 g/dL (31.0-37.0); Macrocytosis Slight; Mean Platelet Volume 8.3; Monocytes # (A) 0.7 k/uL (0-1.0); Monocytes % (A) 8 %; Neutrophils # (A) 7.3 k/uL (1.3-7.7); Neutrophils % (A) 89 %; Platelet Count 133 k/uL (150-450); RBC 2.76 m/uL (4.30-5.90); WBC 8.3 k/uL (3.8-10.6)
[2019-04-02 12:01] LABS: Calcium 8.2 mg/dL (8.4-10.2); Potassium 3.5 mmol/L (3.5-5.1)
--- NOTE | 2019-04-02 12:24 | P.PN ---
Progress Note - Text Progress Note Date: 04/02/19 The patient remained stable. He denies a significant abdominal pain. The patient will follow-up as an outpatient for his ventral hernia repair.
--- NOTE | 2019-04-02 13:45 | PN ---
PROGRESS NOTE DATE OF SERVICE: 04/02/2019 Patient is a 68-year-old male who is seen sitting up in bed, just getting ready to eat lunch. States he is feeling a little better today. Continues to have a cough, productive for brown creamy colored sputum. The patient is afebrile, hemodynamically stable, in no acute distress. ON PHYSICAL EXAM: VITAL SIGNS: Temp 98.3, heart rate is 76, respiratory rate is 18, blood pressure is 95/58 with an O2 saturation of 97% on 3 L O2 via nasal cannula. HEENT: Head is normocephalic, atraumatic. Neck is supple. Trachea is midline. LUNGS: With scattered inspiratory and expiratory wheeze. HEART: S1, S2 are heard. Not tachycardic. ABDOMEN: Soft. Bowel sounds are positive. EXTREMITIES: With no edema. NEUROLOGIC: Patient is awake and alert. LABS: White count is 8.3, hemoglobin is 9.0, hematocrit 28.2 with 133,000 platelets. Glucose is 220. Magnesium 2.0. No new imaging to review. IMPRESSION: 1. Asthma with chronic obstructive pulmonary disease with acute exacerbation. 2. Possible pneumoconiosis. 3. Congestive heart failure with cardiomyopathy. 4. Possible obstructive sleep apnea. 5. Acute on chronic respiratory failure with metabolic alkalosis, reflecting possible hypercarbia. PLAN: Continue current medications which have been reviewed. Continue IV and aerosolized steroids. Attempt to maintain a negative fluid balance. Continue GI and DVT prophylaxis. We will follow patient closely with you making further changes as necessary. MMODL / IJN: [id number] /
[2019-04-02] MEDS: ALLOPURINOL 100 MG TAB PO SCH (16:57)
[2019-04-02 16:58] LABS: Glucose,Whole Blood 104 mg/dL (75-99)
[2019-04-02 19:48] LABS: Glucose,Whole Blood 182 mg/dL (75-99)
[2019-04-02] MEDS: BUDESONIDE 0.5 MG/2 ML NEBU INHALATION SCH (19:52)
[2019-04-02] MEDS: FAMOTIDINE 20 MG TAB PO SCH (21:19)
[2019-04-02] MEDS: MONTELUKAST 10 MG TAB PO SCH (21:19)
[2019-04-02] MEDS: methylPREDNISolone SOD SUCCI 125 MG/2 ML VIAL IV SCH (21:19)
[2019-04-03] MEDS: METOPROLOL SUCCINATE (ER) 50 MG TAB.ER.24H PO SCH ×4 (00:26→23:37)
[2019-04-03] MEDS: ATORVASTATIN 20 MG TAB PO SCH ×2 (00:26→23:37)
[2019-04-03] MEDS: WARFARIN 2 MG TAB PO SCH ×2 (00:26→23:37)
[2019-04-03] MEDS: CHOLECALCIFEROL 1,000 UNIT TAB PO SCH ×3 (00:26→23:37)
[2019-04-03] MEDS: TAMSULOSIN 0.4 MG CAP.ER.24H PO SCH ×2 (00:26→23:37)
[2019-04-03] MEDS: methylPREDNISolone SOD SUCCI 125 MG/2 ML VIAL IV SCH ×4 (04:05→20:58)
[2019-04-03] MEDS: BUDESONIDE 0.5 MG/2 ML NEBU INHALATION SCH ×2 (07:52→19:58)
[2019-04-03] MEDS: IPRATROPIUM-ALBUTEROL 3 ML NEB INHALATION SCH ×5 (07:52→23:15)
[2019-04-03 08:01] LABS: Glucose,Whole Blood 217 mg/dL (75-99)
[2019-04-03] MEDS: INSULIN ASPART (NovoLOG) 100 UNIT/ML VIAL SQ SCH ×4 (08:56→20:58)
[2019-04-03] MEDS: SACUBITRIL/VALSARTAN 24 MG-26 MG TABLET PO SCH ×2 (09:01→20:58)
[2019-04-03] MEDS: ASPIRIN 81 MG PO SCH (09:04)
[2019-04-03] MEDS: FUROSEMIDE 40 MG TAB PO SCH ×2 (09:04→16:06)
[2019-04-03] MEDS: AZITHROMYCIN 500 MG TAB PO SCH (09:04)
[2019-04-03] MEDS: FERROUS SULFATE 325 MG TAB PO SCH (09:05)
[2019-04-03 10:28] LABS: INR 2.2 (<1.2)
[2019-04-03 12:00] LABS: Glucose,Whole Blood 324 mg/dL (75-99)
[2019-04-03] MEDS: ALLOPURINOL 100 MG TAB PO SCH (16:06)
--- NOTE | 2019-04-03 17:10 | PN ---
PROGRESS NOTE DATE OF SERVICE: April 03, 2019. He has been hemodynamically stable. He continues to have shortness of breath. On physical examination, his blood pressure is 97/60, respiratory rate of 17, pulse rate 70, temperature 98.2, O2 saturation on room air is 96%. HEENT reveals pupils are equal. Chest reveals expiratory wheeze. Cardiovascular system is S1, S2. Abdomen is soft. There is trace pedal edema. IMPRESSION: 1. Asthma with chronic obstructive pulmonary disease with acute exacerbation. 2. Possible pneumoconiosis. 3. Congestive heart failure. 4. Probable obstructive sleep apnea. 5. Acute on chronic respiratory failure. 6. Ventral hernia. Continue IV steroids, bronchodilators, aerosolized steroids. Optimize his fluid status. Increase activity level. His prognosis is fair. MMODL / IJN: [id number] /
[2019-04-03 17:16] LABS: Glucose,Whole Blood 392 mg/dL (75-99)
[2019-04-03 20:05] LABS: Glucose,Whole Blood 347 mg/dL (75-99)
[2019-04-03] MEDS: MONTELUKAST 10 MG TAB PO SCH (20:58)
[2019-04-03] MEDS: FAMOTIDINE 20 MG TAB PO SCH (20:58)
[2019-04-04] MEDS: methylPREDNISolone SOD SUCCI 125 MG/2 ML VIAL IV SCH ×4 (03:50→20:50)
[2019-04-04 06:56] LABS: Glucose,Whole Blood 243 mg/dL (75-99)
[2019-04-04] MEDS: SACUBITRIL/VALSARTAN 24 MG-26 MG TABLET PO SCH ×2 (07:34→20:49)
[2019-04-04] MEDS: INSULIN ASPART (NovoLOG) 100 UNIT/ML VIAL SQ SCH ×4 (07:34→20:50)
[2019-04-04] MEDS: AZITHROMYCIN 500 MG TAB PO SCH (07:36)
[2019-04-04] MEDS: FERROUS SULFATE 325 MG TAB PO SCH (07:36)
[2019-04-04] MEDS: CHOLECALCIFEROL 1,000 UNIT TAB PO SCH ×2 (07:36→23:19)
[2019-04-04] MEDS: FUROSEMIDE 40 MG TAB PO SCH ×2 (07:36→16:17)
[2019-04-04] MEDS: ASPIRIN 81 MG PO SCH (07:36)
[2019-04-04] MEDS: METOPROLOL SUCCINATE (ER) 50 MG TAB.ER.24H PO SCH ×3 (07:36→23:20)
[2019-04-04 08:01] LABS: INR 2.4 (<1.2); Prothrombin Time 22.9 sec (9.0-12.0)
[2019-04-04] MEDS: BUDESONIDE 0.5 MG/2 ML NEBU INHALATION SCH ×2 (08:32→20:31)
[2019-04-04] MEDS: IPRATROPIUM-ALBUTEROL 3 ML NEB INHALATION SCH ×5 (08:32→23:26)
[2019-04-04 10:58] LABS: Glucose,Whole Blood 255 mg/dL (75-99)
[2019-04-04] MEDS: ALLOPURINOL 100 MG TAB PO SCH (16:16)
[2019-04-04 17:09] LABS: Glucose,Whole Blood 234 mg/dL (75-99)
[2019-04-04 20:05] LABS: Glucose,Whole Blood 284 mg/dL (75-99)
[2019-04-04] MEDS: MONTELUKAST 10 MG TAB PO SCH (20:50)
[2019-04-04] MEDS: FAMOTIDINE 20 MG TAB PO SCH (20:50)
--- NOTE | 2019-04-04 21:17 | PN ---
PROGRESS NOTE DATE OF SERVICE: April 04, 2019. He is less short of breath. Continues to have some wheezing. However, he was seen by surgery and conservative management has been recommended. On physical examination, his respiratory rate is 16, pulse rate 62, blood pressure 93/55, temperature 97.9, O2 saturation on 3 L by nasal cannula is 96%. HEENT is unremarkable. Chest reveals prolonged exhalation. Wheeze only on forced expiration. Cardiovascular system is S1, S2. Abdomen is soft. There is trace to 1+ pedal edema. IMPRESSION: At this time is: 1. Asthma with chronic obstructive pulmonary disease with acute exacerbation. 2. Ventral hernia. 3. Probable obstructive sleep apnea. 4. 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 Continue IV steroids, bronchodilators, aerosolized steroids. Increase his activity level. Depending on how he does, we should make further changes to his care. IRAIS / MATTIE: [id number] /
[2019-04-04] MEDS: ATORVASTATIN 20 MG TAB PO SCH (23:15)
[2019-04-04] MEDS: TAMSULOSIN 0.4 MG CAP.ER.24H PO SCH (23:15)
[2019-04-04] MEDS: WARFARIN 2 MG TAB PO SCH (23:16)
[2019-04-05] MEDS: methylPREDNISolone SOD SUCCI 125 MG/2 ML VIAL IV SCH ×2 (03:05→08:32)
[2019-04-05 06:52] LABS: Glucose,Whole Blood 220 mg/dL (75-99)
[2019-04-05 07:58] LABS: Prothrombin Time 19.3 sec (9.0-12.0)
[2019-04-05] MEDS: BUDESONIDE 0.5 MG/2 ML NEBU INHALATION SCH (08:18)
[2019-04-05] MEDS: IPRATROPIUM-ALBUTEROL 3 ML NEB INHALATION SCH ×3 (08:18→15:15)
[2019-04-05] MEDS: FERROUS SULFATE 325 MG TAB PO SCH (08:29)
[2019-04-05] MEDS: ASPIRIN 81 MG PO SCH (08:29)
[2019-04-05] MEDS: AZITHROMYCIN 500 MG TAB PO SCH (08:29)
[2019-04-05] MEDS: CHOLECALCIFEROL 1,000 UNIT TAB PO SCH (08:29)
[2019-04-05] MEDS: FUROSEMIDE 40 MG TAB PO SCH (08:29)
[2019-04-05] MEDS: INSULIN ASPART (NovoLOG) 100 UNIT/ML VIAL SQ SCH ×2 (08:29→12:10)
[2019-04-05] MEDS: SACUBITRIL/VALSARTAN 24 MG-26 MG TABLET PO SCH (08:30)
[2019-04-05] MEDS: CALCITRIOL 0.25 MCG CAP PO SCH (08:30)
[2019-04-05] MEDS ORDERED: METOPROLOL SUCCINATE (ER) 50 MG TAB.ER.24H PO SCH (09:00)
[2019-04-05] MEDS: METOPROLOL SUCCINATE (ER) 50 MG TAB.ER.24H PO SCH (09:35)
[2019-04-05 11:16] LABS: Glucose,Whole Blood 354 mg/dL (75-99)
[2019-04-05 11:23] LABS: Magnesium 2.2 mg/dL (1.6-2.3); Potassium 3.5 mmol/L (3.5-5.1)
[2019-04-05 11:55] VITALS: BP 101/68; TEMP 98.7
--- NOTE | 2019-04-05 13:05 | P.DS ---
Providers Date of admission: 04/02/19 06:56 Expected date of discharge: 04/05/19 Attending physician: Leon Clarke Consults: 03/30/19 13:46 Consult Physician Routine Consulting Provider: Magaly Dozier Consult Reason/Comments: sob, cp Do you want consulting provider notified?: Yes 04/01/19 08:32 Consult Physician Routine Consulting Provider: Quang Mcmahon Consult Reason/Comments: hernia,LUQ pain Do you want consulting provider notified?: Yes 04/01/19 13:34 Consult Physician Routine Consulting Provider: Stan Hagan Consult Reason/Comments: pneumonia/bronchitis Do you want consulting provider notified?: Yes Primary care physician: [facility] Hospital Course: Final Diagnoses: -Acute on chronic CHF, systolic dysfunction, EF less than 20% -AICD, nonischemic dilated cardiomyopathy -Chronic persistent atrial fibrillation -Acute COPD exacerbation, tracheobronchitis and possible pneumonitis -Ventral hernia, further follow-up outpatient -Hypertension -Hyperlipidemia -Acute on chronic renal failure, stage III -Ongoing nicotine dependence -Acute on chronic hypoxic, hypercapnic respiratory failure -Nonsustained runs of V. tach, asymptomatic Hospital course:This is 68-year-old gentleman admitted with acute on chronic systolic CHF, acute on chronic renal failure, tracheobronchitis, COPD exacerbation, possible community-acquired pneumonia, ongoing nicotine dependence and multiple other medical issues. Diuresing well on Lasix with 24-hour I&O reflecting a negative fluid balance. Labs pending. Maintained on Zithromax, Rocephin, IV steroids with breathing /shortness of breath slowly improving. Vital signs stable, maintaining O2 sats in the 90s on 3 L nasal cannula. Denies abdominal pain. Denies chest pain, palpitations. Patient had a couple short runs of nonsustained V. tach electrolytes within normal limits. Patient is currently being worked up for VT ablation with Dr. Smith. Cardiology recommending beta clay be maintained at at the frequency of 3 times a day, patient does have a pacemaker. Significant clinical improvement. Cleared by all consults for discharge. Patient is being discharged home in a stable condition with guarded prognosis. EXAM: GENERAL: Alert and oriented 3, no acute distress CARDIOVASCULAR: S1, S2 regular.. No murmur RESPIRATION: Breath sounds diminished in the bases. Scattered rhonchi, no crackles, expiratory wheezing ABDOMEN: Soft, nontender . Ventral hernia noted, abdominal binder present. No guarding. no masses palpable.Bowel sounds heard. NERVOUS SYSTEM: No focal deficits. The impression and plan of care has been dictated as directed. : I performed a history and examination of this patient, discussed the same with the dictator. I agree with the dictator's note ,documented as a scribe. Any additional findings or plans will be noted. Time taken: 35 minutes Patient Condition at Discharge: Stable Plan - Discharge Summary Discharge Rx Participant: Yes New Discharge Prescriptions: New Cefuroxime Axetil [Ceftin] 500 mg PO BID #10 tab Furosemide [Lasix] 40 mg PO BID@0900,1600 #60 tab Famotidine [Pepcid] 20 mg PO HS #30 tab predniSONE 10 mg PO DIRECTED #30 tab Montelukast [Singulair] 10 mg PO HS #30 tab Continue Tiotropium 18 Mcg/Puff [Spiriva] 1 cap INHALATION RT-DAILY@1600 Fluticasone/Salmeterol [Advair 250-50 Diskus] 1 puff INHALATION RT- BID@0800,2000 Warfarin Sodium [Coumadin] 4 mg PO SUMOWEFR@2359 Tamsulosin HCl [Flomax] 0.4 mg PO HS@2359 Rosuvastatin [Crestor] 10 mg PO HS@2359 Ipratropium-Albuterol Nebulize [Duoneb 0.5 mg-3 mg/3 ml Soln] 3 ml INHALATION 5XD Dulaglutide [Trulicity] 1.5 mg SQ FR Febuxostat [Uloric] 40 mg PO DAILY@1600 Warfarin Sodium [Coumadin] 2 mg PO TUTHSA@2359 Hydrocodone/Acetaminophen [Hydrocodone/Acetaminophen 7.5-300] 1 tab PO Q6HR PRN PRN Reason: Pain Cholecalciferol [Vitamin D3 (25 Mcg = 1000 Iu)] 1,000 unit PO BID@0800,0000 Metoprolol Succinate (ER) [Toprol XL] 50 mg PO TID@0800,1600,0000 Sacubitril/Valsartan [Entresto 24 mg-26 mg Tablet] 0.5 tab PO BID@0900,2100 Calcitriol [Rocaltrol] 0.25 mcg PO MOTUWETH Ferrous Sulfate [Iron (65 MG Elemental)] 325 mg PO DAILY@0800 Aspirin EC [Ecotrin Low Dose] 81 mg PO DAILY@0800 Discontinued Furosemide [Lasix] 40 mg PO DAILY@0800 Discharge Medication List Fluticasone/Salmeterol [Advair 250-50 Diskus] 1 puff INHALATION RT-BID@0800,199901/03/17 [History] Ipratropium-Albuterol Nebulize [Duoneb 0.5 mg-3 mg/3 ml Soln] 3 ml INHALATION 5XD 01/03/17 [History] Rosuvastatin [Crestor] 10 mg PO HS@235801/03/17 [History] Tamsulosin HCl [Flomax] 0.4 mg PO HS@235801/03/17 [History] Tiotropium 18 Mcg/Puff [Spiriva] 1 cap INHALATION RT-DAILY@159901/03/17 [History] Warfarin Sodium [Coumadin] 4 mg PO SUMOWEFR@235801/03/17 [History] Dulaglutide [Trulicity] 1.5 mg SQ FR 05/19/17 [History] Febuxostat [Uloric] 40 mg PO DAILY@159905/19/17 [History] Warfarin Sodium [Coumadin] 2 mg PO TUTHSA@235805/19/17 [History] Cholecalciferol [Vitamin D3 (25 Mcg = 1000 Iu)] 1,000 unit PO BID@0800,0000 05/20/17 [History] Hydrocodone/Acetaminophen [Hydrocodone/Acetaminophen 7.5-300] 1 tab PO Q6HR PRN 05/20/17 [History] Metoprolol Succinate (ER) [Toprol XL] 50 mg PO TID@0800,1600,0000 12/30/18 [History] Sacubitril/Valsartan [Entresto 24 mg-26 mg Tablet] 0.5 tab PO BID@0900,2100 12/30/18 [History] Aspirin EC [Ecotrin Low Dose] 81 mg PO DAILY@0800 03/30/19 [History] Calcitriol [Rocaltrol] 0.25 mcg PO MOTUWETH 03/30/19 [History] Ferrous Sulfate [Iron (65 MG Elemental)] 325 mg PO DAILY@0800 03/30/19 [History] Cefuroxime Axetil [Ceftin] 500 mg PO BID #10 tab 04/05/19 [Rx] Famotidine [Pepcid] 20 mg PO HS #30 tab 04/05/19 [Rx] Furosemide [Lasix] 40 mg PO BID@0900,1600 #60 tab 04/05/19 [Rx] Montelukast [Singulair] 10 mg PO HS #30 tab 04/05/19 [Rx] predniSONE 10 mg PO DIRECTED #30 tab 04/05/19 [Rx] Follow up Appointment(s)/Referral(s): Jonathan Smith MD [STAFF PHYSICIAN] - 04/07/19 4:45 pm Leon Clarke MD [Primary Care Provider] - 3 Days [facility], [NON-STAFF] - 1 Week Quang Mcmahon MD [STAFF PHYSICIAN] - 1 Week Ambulatory/Diagnostic Orders: Prothrombin Time INR [LAB.AMB] Time Frame: 3 Days, Location: None Selected
[2019-04-05 15:18] VITALS: RESP 18
[2019-04-05 15:33] VITALS: PULSE 78
--- NOTE | 2019-04-05 17:30 | PN ---
PROGRESS NOTE DATE OF SERVICE: 04/05/2019. He has been having episodes of bradycardia and apparently ventricular tachycardia as well. He already has a pacemaker that has been placed in the past and consideration is being given for ablation. He does have a history of loud snoring and obesity. He is less short of breath today compared to when he came into the hospital, but not completely back to baseline. PHYSICAL EXAMINATION: Blood pressure is 101/68, respiratory rate is 17, pulse rate 61, temperature 98.7, O2 saturation on 2 L by nasal cannula is 100%. HEENT reveals redundant tissue in the posterior pharynx. Chest reveals prolonged expiration with expiratory wheeze. Cardiovascular system reveals an S1, S2. Abdomen is soft. There is 1+ pedal edema. PT/INR is 2. Sodium 141, potassium 3.5, chloride 90, bicarb 44. IMPRESSION: At this time: 1. Asthma with chronic obstructive pulmonary disease with acute exacerbation. 2. Cardiac arrhythmia. 3. Obstructive sleep apnea, which may be contributing to his propensity for cardiac arrhythmias. 4. Obesity. 5. Ventral hernia. At this point in time from a pulmonary standpoint, agree with discharge planning with close outpatient followup. Increase activity level. Will be happy to see him in the outpatient setting in the next couple of days. Depending on how he does, we should make further changes to his care. MMLESLIEL / IJN: [id number] /
== END 2019-04-05 16:25 | disposition home health service (06) | DRG 190 ==
LOC: 1SOBS 11:25 → OBSVTOIN 04-02 06:56 → 3NMEDONC 04-02 15:46
PROVIDERS: ADMIT Family Medicine; ATTEND Family Medicine
DX: J44.1 Chronic obstructive pulmonary disease with (acute) exacerbation (principal); I50.23 Acute on chronic systolic (congestive) heart failure; J18.9 Pneumonia, unspecified organism; J96.21 Acute and chronic respiratory failure with hypoxia; J96.22 Acute and chronic respiratory failure with hypercapnia; I13.0 Hypertensive heart and chronic kidney disease with heart failure and stage 1 through stage 4 chronic kidney disease, or unspecified chronic kidney disease; E87.3 Alkalosis; I47.2 Ventricular tachycardia; J45.901 Unspecified asthma with (acute) exacerbation; N17.9 Acute kidney failure, unspecified; I42.0 Dilated cardiomyopathy; J44.0 Chronic obstructive pulmonary disease with (acute) lower respiratory infection; E11.22 Type 2 diabetes mellitus with diabetic chronic kidney disease; I48.2 Chronic atrial fibrillation; N18.3 Chronic kidney disease, stage 3 (moderate); E66.9 Obesity, unspecified; E78.5 Hyperlipidemia, unspecified; F17.210 Nicotine dependence, cigarettes, uncomplicated; G47.33 Obstructive sleep apnea (adult) (pediatric); I08.0 Rheumatic disorders of both mitral and aortic valves; J64 Unspecified pneumoconiosis; K43.9 Ventral hernia without obstruction or gangrene; N40.0 Benign prostatic hyperplasia without lower urinary tract symptoms; M19.90 Unspecified osteoarthritis, unspecified site; R00.1 Bradycardia, unspecified; Z77.090 Contact with and (suspected) exposure to asbestos; Z79.01 Long term (current) use of anticoagulants; Z79.82 Long term (current) use of aspirin; Z79.899 Other long term (current) drug therapy; Z99.81 Dependence on supplemental oxygen; Z95.810 Presence of automatic (implantable) cardiac defibrillator; Z68.30 Body mass index [BMI] 30.0-30.9, adult; Z80.9 Family history of malignant neoplasm, unspecified
CPT/HCPCS: 71046; 71250; 80048; 80053; 83735; 83880; 85025; 85610; 93306; 94640; 94760